=== PATIENT | female | born 1985 | race American Indian/Alaskan Native ===

== ENCOUNTER 2021-03-07 20:55 | Inpatient (IN) | payer OTHER, SELFPAY ==
[2021-03-07 21:55] LABS: Basophils # (Auto) 0.1 K/mm3 (0.0-0.1); Basophils % (Auto) 1.2 % (0.0-1.8); Eosinophils # (Auto) 0.1 K/mm3 (0.0-0.4); Eosinophils % (Auto) 1.4 % (0.0-4.3); Hematocrit 20.7 % (30.3-42.9); Lymphocytes # (Auto) 0.7 K/mm3 (1.2-5.4); Lymphocytes % (Auto) 10.5 % (13.4-35.0); Mean Corpuscular HGB Conc 34 % (30-34); Mean Corpuscular Volume 84 fl (79-97); Monocytes # (Auto) 0.6 K/mm3 (0.0-0.8); Monocytes % (Auto) 9.3 % (0.0-7.3); Platelet Count 347 K/mm3 (140-440); Red Blood Count 2.46 M/mm3 (3.65-5.03); Red Cell Distribution Width 14.2 % (13.2-15.2)
[2021-03-07 22:15] LABS: Hemolysis Index 1
[2021-03-07 22:18] LABS: Calcium 4.7 mg/dL (8.4-10.2)
[2021-03-07 22:56] LABS: BUN/Creatinine Ratio 8; Blood Urea Nitrogen 162 mg/dL (7-17)
[2021-03-07] MEDS ORDERED: SODIUM CHLORIDE 0.9% 500 ML 500 ML IV ONE (23:04)
[2021-03-07] MEDS ORDERED: SODIUM CHLORIDE 0.9% 1000 ML 1,000 ML IV ONE (23:04)
[2021-03-07 23:05] LABS: Alanine Aminotransferase 40 units/L (7-56); Albumin 3.4 g/dL (3.9-5)
[2021-03-07 23:06] LABS: Bilirubin,Direct < 0.2 mg/dL (0-0.2)
--- NOTE | 2021-03-07 23:08 | Emergency Department Report ---
HPI - General Chief Complaint: GI Bleed Time Seen by Provider: 03/07/21 22:51 - [facility] HPI: Room 20 The patient is a 35-year-old female present with a chief complaint of nausea vomiting diarrhea. Patient states for the past 2 weeks she has had nausea vomi ting and diarrhea. The patient states she is either unable to keep any food by mouth down "goes right through her and produces watery yellow diarrhea. The patient states over the past 2 weeks there were 3 episodes when she wiped she noticed blood on the tissue but never in the bowl. Patient states she has felt fatigued, has shortness of breath and dyspnea on exertion since 02/26/2021. Patient denies dysuria hematuria or fever ED Past Medical Hx - Past Medical History Previous Medical History?: Yes Additional medical history: Stage 4 kidney disease/ Anemia - Surgical History Past Surgical History?: No - Family History Family history: no significant - Social History Smoking Status: Never Smoker Substance Use Type: None (Denies illicit drug use) ED Review of Systems ROS: Stated complaint: STAGE 4 KIDNEY,ANEMIA, DIGESTIVE ISSUE Other details as noted in HPI Constitutional: malaise Eyes: denies: eye pain ENT: denies: throat pain Respiratory: shortness of breath, SOB with exertion Cardiovascular: denies: chest pain Endocrine: no symptoms reported Gastrointestinal: nausea, vomiting, diarrhea Genitourinary: denies: dysuria, hematuria Musculoskeletal: denies: back pain Neurological: denies: headache Physical Exam - Physical Exam Vital Signs: Vital Signs 03/07/21 21:45 Temperature 98.7 F Respiratory 18 Rate Blood Pressure 108/83 Physical Exam: GENERAL: The patient is well-developed well-nourished female lying on stretcher not appearing to be in acute distress. [] HEENT: Normocephalic. Atraumatic. Extraocular motions are intact. Patient has moist mucous membranes. NECK: Supple. Trachea midline CHEST/LUNGS: Clear to auscultation. There is no respiratory distress noted. HEART/CARDIOVASCULAR: Regular. There is no tachycardia. There is no gallop rub or murmur. ABDOMEN: Abdomen is soft, nontender. Patient has normal bowel sounds. There is no abdominal distention. SKIN: There is no rash. There is no edema. There is no diaphoresis. NEURO: The patient is awake, alert, and oriented. The patient is cooperative. The patient has no focal neurologic deficits. The patient has normal speech MUSCULOSKELETAL: There is no evidence of acute injury. RECTAL: Guaiac negative brown stool ED Course Vital Signs 03/07/21 21:45 Temperature 98.7 F Respiratory 18 Rate Blood Pressure 108/83 ED Medical Decision Making - Lab Data Result diagrams: 03/07/21 21:45 03/07/21 21:46 Laboratory Tests 03/07/21 03/07/21 21:45 21:46 WBC 6.5 RBC 2.46 L Hgb 7.0 L Hct 20.7 L MCV 84 MCH 29 MCHC 34 RDW 14.2 Plt Count 347 Lymph % (Auto) 10.5 L [place] % (Auto) 9.3 H Eos % (Auto) 1.4 Baso % (Auto) 1.2 Lymph # (Auto) 0.7 L [place] # (Auto) 0.6 Eos # (Auto) 0.1 Baso # (Auto) 0.1 Seg Neutrophils % 77.6 H Seg Neutrophils # 5.0 Sodium 140 Potassium 3.8 Chloride 104.8 Carbon Dioxide 9 L* Anion Gap 30 BUN 162 H Creatinine 19.8 H Estimated GFR 2 BUN/Creatinine Ratio 8 Glucose 147 H Calcium 4.7 L* Total Bilirubin 0.40 Direct Bilirubin < 0.2 Indirect Bilirubin 0.2 AST 26 ALT 40 Alkaline Phosphatase 269 H Total Protein 6.3 Albumin 3.4 L Albumin/Globulin Ratio 1.2 Corrected calcium 5.18 - EKG Data -: EKG Interpreted by Me EKG shows normal: sinus rhythm Rate: normal - EKG Data When compared to previous EKG there are: previous EKG unavailable Interpretation: other (No ischemic changes seen) - Differential Diagnosis Symptomatic anemia, GI bleeding, renal failure Critical care attestation.: If time is entered above; I have spent that time in minutes in the direct care of this critically ill patient, excluding procedure time. ED Disposition Clinical Impression: Symptomatic anemia, Uremia, Chronic kidney disease Disposition: OP ADMIT IP TO THIS HOSP Is pt being admited?: Yes Does the pt Need Aspirin: No Condition: Fair Forms: Accompanied Note Time of Disposition: 00:00 (Hospitalist paged (Dr Yeh))
[2021-03-07] MEDS ORDERED: CALCIUM GLUCONATE 2,000 MG in SODIUM CHLORIDE 0.9% 100 ML IV ONE (23:24)
--- NOTE | 2021-03-08 00:53 | History and Physical Report ---
History of Present Illness Date of examination: 03/08/21 Date of admission: 03/08/2021 Chief complaint: Nausea vomiting diarrhea Symptomatic anemia History of present illness: 35-year-old female with history of stage IV kidney disease was brought to the emergency room because of nausea vomiting diarrhea. Patient states for the past 2 weeks she has had nausea vomiting and diarrhea. The patient states she is either unable to keep any food by mouth down "goes right through her and produces watery yellow diarrhea. The patient states over the past 2 weeks there were 3 episodes when she wiped she noticed blood on the tissue but never in the bowl. Patient states she has felt fatigued, has shortness of breath and dyspnea on exertion since 02/26/2021. In the emergency room patient is found to have hemoglobin of 7.2 and hematocrit 20.7. Bicarb up 9 and calcium 4.7 Past History Past Medical History: anemia, renal failure Medications and Allergies Allergies Allergy/AdvReac Type Severity Reaction Status Date / Time No Known Allergies Allergy Unverified 03/07/21 21:42 Active Meds: Active Medications Acetaminophen (Acetaminophen 325 Mg Tab) 650 mg PO Q4H PRN PRN Reason: Pain MILD(1-3)/Fever >100.5/WARD Albuterol/Ipratropium (Ipratropium/Albuterol Sulfate 3 Ml Ampul.Neb) 1 ampul IH Q6HRT [facility] Ondansetron HCl (Ondansetron 4 Mg/2 Ml Inj) 4 mg IV Q8H PRN PRN Reason: Nausea And Vomiting Pantoprazole Sodium (Pantoprazole 40 Mg Inj) 40 mg IV BID [facility] Sodium Chloride (Sodium Chloride 0.9% 10 Ml Flush Syringe) 10 ml IV BID [facility] Sodium Chloride (Sodium Chloride 0.9% 10 Ml Flush Syringe) 10 ml IV PRN PRN PRN Reason: LINE FLUSH Review of Systems Gastrointestinal: nausea, vomiting, diarrhea, other (GI bleeding) Exam - Constitutional Vitals: Temp Pulse Resp BP Pulse Ox 98.7 F 18 108/83 03/07/21 21:45 03/07/21 21:45 03/07/21 21:45 General appearance: Present: no acute distress, well-nourished - EENT Eyes: Present: PERRL ENT: hearing intact, clear oral mucosa - Neck Neck: Present: supple, normal ROM - Respiratory Respiratory effort: normal Respiratory: bilateral: diminished - Cardiovascular Heart Sounds: Present: S1 & S2. Absent: rub, click - Extremities Extremities: pulses symmetrical, No edema Peripheral Pulses: within normal limits - Abdominal General gastrointestinal: Present: soft, non-tender, non-distended, normal bowel sounds Female genitourinary: Present: normal - Integumentary Integumentary: Present: clear, warm, dry - Musculoskeletal Musculoskeletal: gait normal, strength equal bilaterally - Psychiatric Psychiatric: appropriate mood/affect, intact judgment & insight - Neurologic Neurologic: CNII-XII intact, moves all extremities Results - Labs CBC & Chem 7: 03/07/21 21:45 03/07/21 21:46 Labs: Laboratory Last Values WBC 6.5 K/mm3 (4.5-11.0) 03/07/21 21:45 RBC 2.46 M/mm3 (3.65-5.03) L 03/07/21 21:45 Hgb 7.0 gm/dl (10.1-14.3) L 03/07/21 21:45 Hct 20.7 % (30.3-42.9) L 03/07/21 21:45 MCV 84 fl (79-97) 03/07/21 21:45 MCH 29 pg (28-32) 03/07/21 21:45 MCHC 34 % (30-34) 03/07/21 21:45 RDW 14.2 % (13.2-15.2) 03/07/21 21:45 Plt Count 347 K/mm3 (140-440) 03/07/21 21:45 Lymph % (Auto) 10.5 % (13.4-35.0) L 03/07/21 21:45 [place] % (Auto) 9.3 % (0.0-7.3) H 03/07/21 21:45 Eos % (Auto) 1.4 % (0.0-4.3) 03/07/21 21:45 Baso % (Auto) 1.2 % (0.0-1.8) 03/07/21 21:45 Lymph # (Auto) 0.7 K/mm3 (1.2-5.4) L 03/07/21 21:45 [place] # (Auto) 0.6 K/mm3 (0.0-0.8) 03/07/21 21:45 Eos # (Auto) 0.1 K/mm3 (0.0-0.4) 03/07/21 21:45 Baso # (Auto) 0.1 K/mm3 (0.0-0.1) 03/07/21 21:45 Seg Neutrophils % 77.6 % (40.0-70.0) H 03/07/21 21:45 Seg Neutrophils # 5.0 K/mm3 (1.8-7.7) 03/07/21 21:45 Sodium 140 mmol/L (137-145) 03/07/21 21:46 Potassium 3.8 mmol/L (3.6-5.0) 03/07/21 21:46 Chloride 104.8 mmol/L (98-107) 03/07/21 21:46 Carbon Dioxide 9 mmol/L (22-30) L* 03/07/21 21:46 Anion Gap 30 mmol/L 03/07/21 21:46 BUN 162 mg/dL (7-17) H 03/07/21 21:46 Creatinine 19.8 mg/dL (0.6-1.2) H 03/07/21 21:46 Estimated GFR 2 ml/min 03/07/21 21:46 BUN/Creatinine Ratio 8 % 03/07/21 21:46 Glucose 147 mg/dL (65-100) H 03/07/21 21:46 Calcium 4.7 mg/dL (8.4-10.2) L* 03/07/21 21:46 Total Bilirubin 0.40 mg/dL (0.1-1.2) 03/07/21 21:46 Direct Bilirubin < 0.2 mg/dL (0-0.2) 03/07/21 21:46 Indirect Bilirubin 0.2 mg/dL 03/07/21 21:46 AST 26 units/L (5-40) 03/07/21 21:46 ALT 40 units/L (7-56) 03/07/21 21:46 Alkaline Phosphatase 269 units/L (35-129) H 03/07/21 21:46 Total Protein 6.3 g/dL (6.3-8.2) 03/07/21 21:46 Albumin 3.4 g/dL (3.9-5) L 03/07/21 21:46 Albumin/Globulin Ratio 1.2 % 03/07/21 21:46 Blood Type B POSITIVE 03/07/21 23:22 Crossmatch See Detail 03/07/21 23:22 Assessment and Plan VTE prophylaxis?: Mechanical Plan of care discussed with patient/family: Yes - Patient Problems (1) Nausea vomiting and diarrhea Current Visit: Yes Status: Acute Plan to address problem: Admit the patient to the medical telemetry put the patient on renal diet. Protonix 40 mg IV every 12 hours. Zofran 4 mg IV every 6 hours as needed. Will consult GI for evaluation. Recheck CBC BMP in the morning (2) GI bleed Current Visit: Yes Status: Acute Plan to address problem: Protonix 40 mg IV every 12 hours. Zofran 4 mg IV every 6 hours as needed. Will consult GI for evaluation. Recheck CBC BMP in the morning (3) Chronic kidney disease Current Visit: Yes Status: Acute Plan to address problem: We will continue the home medication. Reconsult nephrology for further evaluation and treatment. Avoid nephrotoxic drug. Renally dose medication. Recheck CBC BMP in the morning (4) Symptomatic anemia Current Visit: Yes Status: Acute Plan to address problem: Patient is getting 1 unit of packed red blood cell. Protonix 40 mg IV every 12 hours. Zofran 4 mg IV every 6 hours as needed. Will consult GI for evaluation. Recheck CBC BMP in the morning (5) Hypocalcemia Current Visit: Yes Status: Acute Plan to address problem: Patient is getting 1 g of calcium gluconate. Recheck BMP in the morning (6) DVT prophylaxis Current Visit: Yes Status: Acute Plan to address problem: SCD for DVT prophylaxis. Protonix for GI prophylaxis. Patient is a full code
[2021-03-08] MEDS: IPRATROPIUM/ALBUTEROL SULFATE 3 ML AMPUL.NEB IH SCH ×4 (01:42→19:48)
[2021-03-08] MEDS ORDERED: CALCIUM GLUCONATE 1,000 MG in SODIUM CHLORIDE 0.9% 100 ML IV ONE (03:15)
[2021-03-08] MEDS: ONDANSETRON 4 MG/2 ML INJ IV PRN (03:28)
[2021-03-08] MEDS ORDERED: SODIUM CHLORIDE 0.9% 1000 ML 1,000 ML IV ONE (04:52)
[2021-03-08] MEDS: amLODIPine 5 MG TAB PO SCH (05:04)
[2021-03-08] MEDS ORDERED: FAMOTIDINE 20 MG/2 ML INJ IV SCH (10:00)
[2021-03-08] MEDS ORDERED: PANTOPRAZOLE 40 MG INJ IV SCH (10:00)
--- NOTE | 2021-03-08 10:56 | Electrocardiograph Report ---
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 Electronically Signed On 03-08-2021 10:55:54 EDT by Houston Mcadams
--- NOTE | 2021-03-08 13:40 | Event Note ---
Date: 03/08/21 Patient was seen and evaluated this morning, patient states she still having nausea but no vomiting. The nausea is getting better. She is on Zofran. Patient stated she was diagnosed with kidney disease but did not have any recent follow-up. Patient states she had history of anemia but did not get any transfusion. Patient was transfused 1 unit of blood and will get H&H after that. Patient has hypocalcemia and calcium gluconate ordered. Will check BMP. Patient was admitted earlier this morning and follow management as outlined in HPI.
--- NOTE | 2021-03-08 13:41 | Gastroenterology Consultation ---
History of Present Illness - Reason for Consult Consult date: 03/08/21 Anemia, N/V, Diarrhea Requesting physician: WILLY BARON - History of Present Illness The patient is a 35 yo female with a known hx of Stage (?IV) kidney disease, who came to the ER for N/V/diarrhea/weakness. On labs, she was noted to be in [place] with severe acidosis, anemia, and hypocalcemia. She has had watery diarrhea x 2 weeks, and non-bloody emesis for the same. She denies severe abdominal pain, but has lost her appetite, and her weight is markedly decreased. She has no gross blood in the stools, but has a hx of chronic anemia by her report, that was felt to be related to her CKD. She has stopped all her recent medications for CKD. Past History Past Medical History: anemia, renal failure Medications and Allergies Allergies Allergy/AdvReac Type Severity Reaction Status Date / Time No Known Allergies Allergy Unverified 03/07/21 21:42 Active Meds: Active Medications Acetaminophen (Acetaminophen 325 Mg Tab) 650 mg PO Q4H PRN PRN Reason: Pain MILD(1-3)/Fever >100.5/WARD Albuterol/Ipratropium (Ipratropium/Albuterol Sulfate 3 Ml Ampul.Neb) 1 ampul IH Q6HRT [facility] Last Admin: 03/08/21 01:42 Dose: Not Given Documented by: Amlodipine Besylate (Amlodipine 5 Mg Tab) 5 mg PO QDAY [facility] Last Admin: 03/08/21 05:04 Dose: 5 mg Documented by: Sodium Chloride (Nacl 0.9% 1000 Ml) 1,000 mls @ 100 mls/hr IV ONCE ONE Stop: 03/08/21 14:51 Last Admin: 03/08/21 05:05 Dose: 100 mls/hr Documented by: Calcium Gluconate 2,000 mg/ (Sodium Chloride) 120 mls @ 660 mls/hr IV ONCE ONE Stop: 03/08/21 13:49 Ondansetron HCl (Ondansetron 4 Mg/2 Ml Inj) 4 mg IV Q8H PRN PRN Reason: Nausea And Vomiting Last Admin: 03/08/21 03:28 Dose: 4 mg Documented by: Pantoprazole Sodium (Pantoprazole 40 Mg Inj) 40 mg IV BID [facility] Last Admin: 03/08/21 10:45 Dose: 40 mg Documented by: Sodium Chloride (Sodium Chloride 0.9% 10 Ml Flush Syringe) 10 ml IV BID [facility] Last Admin: 03/08/21 10:45 Dose: 10 ml Documented by: Sodium Chloride (Sodium Chloride 0.9% 10 Ml Flush Syringe) 10 ml IV PRN PRN PRN Reason: LINE FLUSH I HAVE REVIEWED/RECONCILED MEDICATIONS Review of Systems - Review of Systems All systems: negative (as noted in the HPI) Exam - Constitutional Vital Signs: Temp Pulse Resp BP Pulse Ox 98.3 F 109 H 28 H 151/102 100 03/08/21 03:43 03/08/21 06:00 03/08/21 06:00 03/08/21 06:00 03/08/21 06:00 General appearance: mild distress - EENT Eyes: PERRL, EOM intact ENT: hearing intact, clear oral mucosa - Neck Neck: supple, normal ROM - Respiratory Respiratory effort: normal Respiratory: bilateral: CTA - Cardiovascular Rhythm: regular Heart Sounds: Present: S1 & S2 Extremities: no ischemia, No edema - Gastrointestinal General gastrointestinal: Present: soft, non-tender, non-distended - Integumentary Integumentary: Present: clear, warm, dry - Neurologic Neurological: alert and oriented x3 - Labs CBC & Chem 7: 03/07/21 21:45 03/07/21 21:46 Lab Results: Laboratory Results - last 24 hr 03/07/21 03/07/21 03/07/21 21:45 21:46 23:22 WBC 6.5 RBC 2.46 L Hgb 7.0 L Hct 20.7 L MCV 84 MCH 29 MCHC 34 RDW 14.2 Plt Count 347 Lymph % (Auto) 10.5 L [place] % (Auto) 9.3 H Eos % (Auto) 1.4 Baso % (Auto) 1.2 Lymph # (Auto) 0.7 L [place] # (Auto) 0.6 Eos # (Auto) 0.1 Baso # (Auto) 0.1 Seg Neutrophils % 77.6 H Seg Neutrophils # 5.0 Sodium 140 Potassium 3.8 Chloride 104.8 Carbon Dioxide 9 L* Anion Gap 30 BUN 162 H Creatinine 19.8 H Estimated GFR 2 BUN/Creatinine Ratio 8 Glucose 147 H Calcium 4.7 L* Total Bilirubin 0.40 Direct Bilirubin < 0.2 Indirect Bilirubin 0.2 AST 26 ALT 40 Alkaline Phosphatase 269 H Total Protein 6.3 Albumin 3.4 L Albumin/Globulin Ratio 1.2 Blood Type B POSITIVE Antibody Screen Negative Crossmatch See Detail Assessment and Plan - Patient Problems (1) Nausea vomiting and diarrhea Current Visit: Yes Status: Acute Plan to address problem: - The patient will be initiated on HD later today, and we will assess if the symptoms resolve after correction of severe uremia. - No fever or elevated WBC to suggest infectious cause of diarrhea. - Agree with antiacid therapy. (2) Symptomatic anemia Current Visit: Yes Status: Acute Plan to address problem: - No significant gross bleeding, and vitals are stable. Likely related to CKD. - Will re-address after stabilization on HD.
[2021-03-08] MEDS ORDERED: CALCIUM GLUCONATE 2,000 MG in SODIUM CHLORIDE 0.9% 100 ML IV ONE (14:00)
[2021-03-08 14:17] LABS: Basophils % (Auto) 0.7 % (0.0-1.8); Eosinophils # (Auto) 0.1 K/mm3 (0.0-0.4); Eosinophils % (Auto) 0.9 % (0.0-4.3); Hematocrit 21.6 % (30.3-42.9); Hemoglobin 7.1 gm/dl (10.1-14.3); Lymphocytes # (Auto) 0.5 K/mm3 (1.2-5.4); Lymphocytes % (Auto) 8.4 % (13.4-35.0); Mean Corpuscular HGB Conc 33 % (30-34); Mean Corpuscular Volume 87 fl (79-97); Monocytes # (Auto) 0.6 K/mm3 (0.0-0.8); Monocytes % (Auto) 9.8 % (0.0-7.3); Platelet Count 297 K/mm3 (140-440); Red Blood Count 2.47 M/mm3 (3.65-5.03); Red Cell Distribution Width 14.7 % (13.2-15.2)
[2021-03-08] MEDS ORDERED: SODIUM CHLORIDE 0.9% 100 ML IV PRN (14:39)
--- NOTE | 2021-03-08 14:55 | Consultation ---
History of Present Illness - Reason for Consult acute renal failure, chronic renal failure - History of Present Illness very pleasant 35-year-old -[place] female with a past medical history of chronic kidney disease stage IV in the setting of hypertension, who recently moved from [place] about a year ago and has since not followed up with process engineering manager, who presented to the ED secondary to worsening symptoms of nausea, vomiting with labs showing likely underlying progression of her chronic kidney disease. Symptoms are concerning for uremia especially given patient's history of progressive chronic kidney disease. As mentioned before she had recently moved from [place] about a year ago but unfortunately she was not able to follow up with the process engineering manager here. She does not have a fistula in place at this time. I asked patient whether she was ever told about dialysis and patient mentioned that they had not specifically talked to her about dialysis but had mentioned that if kidney functions worsened over time that that might have been a route of action. She does not remember the specific nephrology clinic that she was seen at in [place]. Discussed with patient that based on her history and clinical presentation that I am concerned that her symptoms are like ly secondary to uremia which would necessitate initiation of hemodialysis. Past History Past Medical History: anemia, hypertension, renal failure Medications and Allergies Allergies Allergy/AdvReac Type Severity Reaction Status Date / Time No Known Allergies Allergy Unverified 03/07/21 21:42 Active Meds: Active Medications Acetaminophen (Acetaminophen 325 Mg Tab) 650 mg PO Q4H PRN PRN Reason: Pain MILD(1-3)/Fever >100.5/WARD Albuterol/Ipratropium (Ipratropium/Albuterol Sulfate 3 Ml Ampul.Neb) 1 ampul IH Q6HRT [facility] Last Admin: 03/08/21 01:42 Dose: Not Given Documented by: Amlodipine Besylate (Amlodipine 5 Mg Tab) 5 mg PO QDAY [facility] Last Admin: 03/08/21 05:04 Dose: 5 mg Documented by: Famotidine (Famotidine 20 Mg/2 Ml Inj) 10 mg IV BID [facility] Sodium Chloride (Nacl 0.9% 1000 Ml) 1,000 mls @ 100 mls/hr IV ONCE ONE Stop: 03/08/21 14:51 Last Admin: 03/08/21 05:05 Dose: 100 mls/hr Documented by: Calcium Gluconate 2,000 mg/ (Sodium Chloride) 120 mls @ 120 mls/hr IV ONCE ONE Stop: 03/08/21 14:59 Last Admin: 03/08/21 14:42 Dose: 120 mls/hr Documented by: Sodium Chloride (Nacl 0.9%) 100 mls @ 999 mls/hr IV KYREE PRN PRN Reason: Hypotension Ondansetron HCl (Ondansetron 4 Mg/2 Ml Inj) 4 mg IV Q8H PRN PRN Reason: Nausea And Vomiting Last Admin: 03/08/21 03:28 Dose: 4 mg Documented by: Sodium Chloride (Sodium Chloride 0.9% 10 Ml Flush Syringe) 10 ml IV BID [facility] Last Admin: 03/08/21 10:45 Dose: 10 ml Documented by: Sodium Chloride (Sodium Chloride 0.9% 10 Ml Flush Syringe) 10 ml IV PRN PRN PRN Reason: LINE FLUSH Review of Systems Constitutional: fatigue, weakness, malaise, poor appetite Gastrointestinal: nausea, vomiting, diarrhea Exam - Vital Signs Vital signs: Vital Signs Temp Resp BP 98.7 F 18 108/83 03/07/21 21:45 03/07/21 21:45 03/07/21 21:45 - General Appearance General appearance: appears stated age EENT: ATNC Neck: Present: neck supple, trachea midline Respiratory: Clear to Ascultation Heart: regular, S1S2 Gastrointestinal: Present: normal Integumentary: no rash, warm and dry Neurologic: no focal deficit Musculoskeletal: Present: deferred Psychiatric: cooperative Results - Lab Results 03/08/21 13:34 03/08/21 13:34 Most recent lab results Calcium 4.7 mg/dL (8.4-10.2) L* 03/07/21 21:46 Assessment and Plan - Patient Problems (1) Acute kidney injury superimposed on chronic kidney disease Current Visit: Yes Status: Acute Plan to address problem: based on history and symptomatology I am concerned that we are dealing with progressive chronic kidney disease likely now stage V. Symptoms are concerning for uremia. Given this we have discussed with patient and will start her on hemodialysis at this time. Have placed a vascular consult order for permacath placement. (2) Uremia Current Visit: Yes Status: Acute Plan to address problem: symptoms are concerning for uremia at this time given worsening renal function. Will start on hemodialysis with plan for initiation for 3 consecutive days (3) Anemia in chronic kidney disease (CKD) Current Visit: Yes Status: Chronic Plan to address problem: in the setting of chronic kidney disease. Will need to be started on BIJU therapy as an outpatient with dialysis. Transfuse to maintain hemoglobin above 7. GI consultation reviewed. No overt signs of GI bleed. (4) Hypocalcemia Current Visit: Yes Status: Acute Plan to address problem: likely in the setting of advanced chronic kidney disease. Will start patient on calcitriol 0.25 mcg daily while here in the hospital. Agree with IV calcium gluconate repletion. (5) Nausea vomiting and diarrhea Current Visit: Yes Status: Acute Plan to address problem: symptomatic management per primary team. Likely as a cause of underlying uremia given worsening renal failure. Anticipate improvement of symptoms after initia ting and stabilizing on dialysis.
[2021-03-08 14:58] LABS: Calcium 5.1 mg/dL (8.4-10.2)
--- NOTE | 2021-03-08 16:09 | Consultation ---
History of Present Illness - Reason for Consult Consult date: 03/08/21 HD access Requesting physician: YURI LO - History of Present Illness 35-year-old -[place] female with a past medical history of chronic kidney disease stage IV in the setting of hypertension, who recently moved from [place] about a year ago and has since not followed up with opal miner, who presented to the ED secondary to worsening symptoms of nausea, vomiting with labs showing likely underlying progression of her chronic kidney disease. Symptoms are concerning for uremia especially given patient's history of progressive chronic kidney disease. As mentioned before she had recently moved from [place] about a year ago but unfortunately she was not able to fo llow up with the opal miner here. She does not have a fistula in place at this time. I asked patient whether she was ever told about dialysis and patient mentioned that they had not specifically talked to her about dialysis but had mentioned that if kidney functions worsened over time that that might have been a route of action. She does not remember the specific nephrology clinic that she was seen at in [place]. Discussed with patient that based on her history and clinical presentation that I am concerned that her symptoms are likely secondary to uremia which would necessitate initiation of hemodialysis. Nephrology contacted vascular for dialysis access. Past History Past Medical History: anemia, hypertension, renal failure Medications and Allergies Allergies Allergy/AdvReac Type Severity Reaction Status Date / Time No Known Allergies Allergy Unverified 03/07/21 21:42 Active Meds: Active Medications Acetaminophen (Acetaminophen 325 Mg Tab) 650 mg PO Q4H PRN PRN Reason: Pain MILD(1-3)/Fever >100.5/WARD Albuterol/Ipratropium (Ipratropium/Albuterol Sulfate 3 Ml Ampul.Neb) 1 ampul IH Q6HRT [facility] Last Admin: 03/08/21 01:42 Dose: Not Given Documented by: Amlodipine Besylate (Amlodipine 5 Mg Tab) 5 mg PO QDAY [facility] Last Admin: 03/08/21 05:04 Dose: 5 mg Documented by: Famotidine (Famotidine 20 Mg/2 Ml Inj) 10 mg IV BID [facility] Sodium Chloride (Nacl 0.9%) 100 mls @ 999 mls/hr IV KYREE PRN PRN Reason: Hypotension Ondansetron HCl (Ondansetron 4 Mg/2 Ml Inj) 4 mg IV Q8H PRN PRN Reason: Nausea And Vomiting Last Admin: 03/08/21 03:28 Dose: 4 mg Documented by: Sodium Chloride (Sodium Chloride 0.9% 10 Ml Flush Syringe) 10 ml IV BID VALENTIN Last Admin: 03/08/21 10:45 Dose: 10 ml Documented by: Sodium Chloride (Sodium Chloride 0.9% 10 Ml Flush Syringe) 10 ml IV PRN PRN PRN Reason: LINE FLUSH Review of Systems All systems: negative (see HPI) Exam - Constitutional Vitals: Temp Pulse Resp BP Pulse Ox 98.3 F 102 H 28 H 141/93 99 03/08/21 03:43 03/08/21 15:00 03/08/21 15:00 03/08/21 15:00 03/08/21 14:00 General appearance: Present: no acute distress - EENT Eyes: Present: EOM intact ENT: hearing intact - Neck Neck: Present: supple - Respiratory Respiratory effort: normal - Abdominal General gastrointestinal: Present: soft, non-tender - Psychiatric Psychiatric: appropriate mood/affect, cooperative Results - Labs CBC & Chem 7: 03/08/21 13:34 03/08/21 13:34 Labs: Abnormal lab results 03/07/21 03/07/21 03/07/21 Range/Units 21:45 21:46 23:22 RBC 2.46 L (3.65-5.03) M/mm3 Hgb 7.0 L (10.1-14.3) gm/dl Hct 20.7 L (30.3-42.9) % Lymph % (Auto) 10.5 L (13.4-35.0) % [place] % (Auto) 9.3 H (0.0-7.3) % Lymph # (Auto) 0.7 L (1.2-5.4) K/mm3 Seg Neutrophils % 77.6 H (40.0-70.0) % Carbon Dioxide 9 L* (22-30) mmol/L BUN 162 H (7-17) mg/dL Creatinine 19.8 H (0.6-1.2) mg/dL Glucose 147 H (65-100) mg/dL Calcium 4.7 L* (8.4-10.2) mg/dL Alkaline Phosphatase 269 H (35-129) units/L Albumin 3.4 L (3.9-5) g/dL Crossmatch See Detail 03/08/21 03/08/21 Range/Units 13:34 13:34 RBC 2.47 L (3.65-5.03) M/mm3 Hgb 7.1 L (10.1-14.3) gm/dl Hct 21.6 L (30.3-42.9) % Lymph % (Auto) 8.4 L (13.4-35.0) % [place] % (Auto) 9.8 H (0.0-7.3) % Lymph # (Auto) 0.5 L (1.2-5.4) K/mm3 Seg Neutrophils % 80.2 H (40.0-70.0) % Carbon Dioxide 12 L (22-30) mmol/L BUN 156 H (7-17) mg/dL Creatinine 18.1 H (0.6-1.2) mg/dL Glucose 121 H (65-100) mg/dL Calcium 5.1 L* (8.4-10.2) mg/dL Alkaline Phosphatase (35-129) units/L Albumin (3.9-5) g/dL Crossmatch Assessment and Plan 35-year-old female with multiple medical issues including end-stage renal disease. Nephrology request hemodialysis access. Risks, benefits, and alternatives discussed with patient, patient agrees with hemodialysis access placement. Ordered vein mapping. Card provided. Follow-up in office.
[2021-03-08] MEDS ORDERED: MIDAZOLAM 2 MG/2 ML INJ ONE (16:19)
[2021-03-08] MEDS ORDERED: fentaNYL 100 MCG/2 ML INJ ONE (16:20)
[2021-03-08] MEDS ORDERED: HEPARIN/NS 5000 UNIT/500ML 500 ML IR ONE (16:20)
[2021-03-08] MEDS ORDERED: LIDOCAINE 1%/EPINEPHRINE 1:100,000 VIAL (20 ML) INFILTRATI ONE ×2 (16:21→16:56)
[2021-03-08] MEDS ORDERED: SODIUM CHLORIDE 0.9% 250ML 250 ML ONE (16:21)
[2021-03-08] MEDS ORDERED: ceFAZolin/Water 2 GM/20 ML 2 GM/20 ML SYRINGE IV ONE (17:02)
[2021-03-08] MEDS: HEPARIN 10,000 UNITS/10 ML VIAL ONE ×2 (17:09→17:10)
--- NOTE | 2021-03-08 17:30 | Operative Report ---
Operative Report Operative Report: EXAM: 1. Ultrasound-guided puncture of the right internal jugular vein 2. Fluoroscopic-guided placement of a right internal jugular tunneled cuffed hemodialysis catheter. DATE: 03/08/2021 INDICATION: End-stage renal disease requiring hemodialysis access. MEDICATIONS: Please see nursing report for full details. DEVICES: 23 cm tip to cuff 15 Fr dual lumen hemodialysis catheter [employer] SUPERVISOR: BRANDON MORENO MD CONTRAST: None PROCEDURE: The risks, benefits, and alternatives were discussed and informed consent was obtained. The patient was transported to the angiography suite in satisfactory/stable condition and was transported onto the angiography table. The patient's right internal jugular vein was assessed with ultrasound and determined to be patent prior to procedure. The patient was prepped and draped in a sterile fashion. The puncture site was anesthetized. Under sonographic guidance, the right internal jugular vein was punctured with a 21-gauge micropuncture needle and a 0.018 inch wire was advanced into the inferior vena cava. The micropuncture needle was exchanged for a transitional dilator and the wire was retracted into the right atrium to jarek intravascular distance. The wire and inner dilator were removed. 0.035 inch wire was advanced through the transitional dilator into the inferior vena cava. A suitable exit site was identified on the patient's chest inferior and lateral to the venotomy. The site was anesthetized with local anesthetic and the track was anesthetized. Dermatotomy was made. The PermCath was attached to the tunneling device and tunneled between the dermatotomy to the venotomy. Over the 0.035 inch wire, serial dilatation was performed with ultimate placement of a peel-away sheath. The catheter was advanced through the peel- away sheath after the wire was removed and positioned centrally under fluoroscopic guidance. The peel-away sheath was removed. 4-0 Vicryl suture was used to close the venotomy and Dermabond was then applied. 2-0 Ethilon suture was used to secure the catheter at the dermatotomy. The catheter was charged with heparin 1000 units/mL of space. Sterile dressing and Biopatch applied. The patient was transferred from the angiography suite back to the floor in stable condition. FINDINGS: 1. Excellent flow was obtained through the dialysis catheter with 20 mL syringes. 2. The catheter tip is in the right atrium. IMPRESSION: 1. Successful ultrasound and fluoroscopically guided placement of a right internal jugular tunneled cuffed hemodialysis catheter.
[2021-03-08] MEDS: MORPHINE 2 MG/1 ML INJ IV PRN ×2 (18:34→22:38)
[2021-03-08 21:13] LABS: Hepatitis B Surface Antigen Non-Reactive (Negative); Hepatitis C Virus Antibody Non-Reactive (NonReactive)
[2021-03-08] MEDS: FAMOTIDINE 20 MG/2 ML INJ IV SCH (22:37)
[2021-03-08] MEDS ORDERED: hydrALAZINE 20 MG/1 ML INJ IV PRN (23:04)
[2021-03-09] MEDS: IPRATROPIUM/ALBUTEROL SULFATE 3 ML AMPUL.NEB IH SCH ×4 (02:12→21:15)
[2021-03-09] MEDS: MORPHINE 2 MG/1 ML INJ IV PRN ×2 (05:47→12:28)
[2021-03-09 06:27] LABS: Basophils # (Auto) 0.1 K/mm3 (0.0-0.1); Basophils % (Auto) 0.8 % (0.0-1.8); Eosinophils % (Auto) 0.2 % (0.0-4.3); Hematocrit 22.3 % (30.3-42.9); Hemoglobin 7.5 gm/dl (10.1-14.3); Lymphocytes # (Auto) 0.5 K/mm3 (1.2-5.4); Lymphocytes % (Auto) 5.8 % (13.4-35.0); Mean Corpuscular HGB Conc 34 % (30-34); Mean Corpuscular Volume 86 fl (79-97); Monocytes # (Auto) 0.7 K/mm3 (0.0-0.8); Monocytes % (Auto) 8.6 % (0.0-7.3); Platelet Count 275 K/mm3 (140-440); Red Blood Count 2.58 M/mm3 (3.65-5.03); Red Cell Distribution Width 14.2 % (13.2-15.2)
[2021-03-09 06:40] LABS: Calcium 5.5 mg/dL (8.4-10.2)
[2021-03-09] MEDS ORDERED: CALCIUM GLUCONATE 1,000 MG in SODIUM CHLORIDE 0.9% 100 ML IV NR (08:00)
--- NOTE | 2021-03-09 09:08 | Gastroenterology Progress Note ---
Assessment and Plan - Patient Problems (1) Nausea vomiting and diarrhea Current Visit: Yes Status: Acute Plan to address problem: - The patient will be initiated on HD later today, and I suspect her severe uremia and metabolic derangements are source of N/V/D. - No fever or elevated WBC to suggest infectious cause of diarrhea. - Agree with antiacid therapy. - Will sign off; please call us back if symptoms fail to resolve after starting HD. (2) Symptomatic anemia Current Visit: Yes Status: Acute Plan to address problem: - No significant gross bleeding, and vitals are stable. Likely related to CKD. - Hct improved in last 36 hours. - No endoscopic workup at present until stabilized on HD, unless gross bleeding. - Will sign off; please call if needed. Subjective Date of service: 03/09/21 Principal diagnosis: N/V/D Interval history: The patient had a Vascath placed, and is able to tolerate some sips of liquids. No blood in the stools, but they are still loose. No fevers overnight, and her WBC remains stable. Objective - Constitutional Vitals: Temp Pulse Resp BP Pulse Ox 99.0 F 107 H 20 133/84 100 03/09/21 03:51 03/09/21 03:51 03/09/21 03:51 03/09/21 03:51 03/09/21 03:51 General appearance: no acute distress - Respiratory Respiratory effort: normal Respiratory: bilateral: CTA - Cardiovascular Rhythm: regular Heart Sounds: Present: S1 & S2 - Gastrointestinal General gastrointestinal: Present: soft, non-tender, non-distended - Labs CBC & Chem 7: 03/09/21 05:51 03/09/21 05:51 Labs: Laboratory Results - last 24 hr 03/08/21 03/08/21 03/08/21 13:34 13:34 20:21 WBC 6.6 RBC 2.47 L Hgb 7.1 L Hct 21.6 L MCV 87 MCH 29 MCHC 33 RDW 14.7 Plt Count 297 Lymph % (Auto) 8.4 L [place] % (Auto) 9.8 H Eos % (Auto) 0.9 Baso % (Auto) 0.7 Lymph # (Auto) 0.5 L [place] # (Auto) 0.6 Eos # (Auto) 0.1 Baso # (Auto) 0.0 Seg Neutrophils % 80.2 H Seg Neutrophils # 5.3 Sodium 141 Potassium 3.7 Chloride 103.7 Carbon Dioxide 12 L Anion Gap 29 BUN 156 H Creatinine 18.1 H Estimated GFR 3 BUN/Creatinine Ratio 9 Glucose 121 H Calcium 5.1 L* Hepatitis A IgM Ab Non-reactive Hep Bs Antigen Non-reactive Hep B Core IgM Ab Non-reactive Hepatitis C Antibody Non-reactive 03/09/21 03/09/21 05:51 05:51 WBC 8.6 RBC 2.58 L Hgb 7.5 L Hct 22.3 L MCV 86 MCH 29 MCHC 34 RDW 14.2 Plt Count 275 Lymph % (Auto) 5.8 L [place] % (Auto) 8.6 H Eos % (Auto) 0.2 Baso % (Auto) 0.8 Lymph # (Auto) 0.5 L [place] # (Auto) 0.7 Eos # (Auto) 0.0 Baso # (Auto) 0.1 Seg Neutrophils % 84.6 H Seg Neutrophils # 7.3 Sodium 140 Potassium 3.5 L Chloride 106.3 Carbon Dioxide 9 L* Anion Gap 28 BUN 154 H Creatinine 18.6 H Estimated GFR 3 BUN/Creatinine Ratio 8 Glucose 118 H Calcium 5.5 L* Hepatitis A IgM Ab Hep Bs Antigen Hep B Core IgM Ab Hepatitis C Antibody
--- NOTE | 2021-03-09 10:10 | Progress Note ---
Assessment and Plan - Patient Problems (1) Acute kidney injury superimposed on chronic kidney disease Current Visit: Yes Status: Acute Plan to address problem: based on history and symptomatology I am concerned that we are dealing with progressive chronic kidney disease likely now stage V. Symptoms are concerning for uremia. Given this we have discussed with patient and will start her on hemodialysis at this time. Orders have been placed for three consecutive dialysis treatments as part of the initiation process, with first treatment today. Need assistance from CM in order to have patient placed in outpatient dialysis facility. (2) Uremia Current Visit: Yes Status: Acute Plan to address problem: symptoms are concerning for uremia at this time given worsening renal function. Will start on hemodialysis with plan for initiation for 3 consecutive days (3) Anemia in chronic kidney disease (CKD) Current Visit: Yes Status: Chronic Plan to address problem: in the setting of chronic kidney disease. Will need to be started on BIJU therapy as an outpatient with dialysis. Transfuse to maintain hemoglobin above 7. GI consultation reviewed. No overt signs of GI bleed. (4) Hypocalcemia Current Visit: Yes Status: Acute Plan to address problem: likely in the setting of advanced chronic kidney disease. Will start patient on calcitriol 0.25 mcg daily while here in the hospital. Agree with IV calcium gluconate repletion. (5) Nausea vomiting and diarrhea Current Visit: Yes Status: Acute Plan to address problem: symptomatic management per primary team. Likely as a cause of underlying uremia given worsening renal failure. Anticipate improvement of symptoms after initiating and stabilizing on dialysis. Subjective Date of service: 03/09/21 Principal diagnosis: N/V/D Interval history: Initiated on dialysis, tolerating treatment. Had permcath placed yesterday. Will need assistance from in order to set up outpatient dialysis. Objective - Vital Signs Vital signs: Vital Signs - 12hr 03/08/21 03/09/21 03/09/21 22:32 02:14 02:15 Temperature Pulse Rate 140 H Pulse Rate [ 109 H Bilateral] Respiratory 20 Rate Respiratory 18 Rate [Bilateral ] Blood Pressure 157/107 O2 Sat by Pulse 95 100 Oximetry 03/09/21 03/09/21 03/09/21 03:51 09:46 10:00 Temperature 99.0 F Pulse Rate 107 H 112 H 113 H Pulse Rate [ Bilateral] Respiratory 20 Rate Respiratory Rate [Bilateral ] Blood Pressure 133/84 141/89 138/93 O2 Sat by Pulse 100 Oximetry - General Appearance General appearance: well-developed, appears stated age EENT: ATNC Neck: no JVD Respiratory: Present: Wheezes Cardiology: regular Gastrointestinal: normal Integumentary: no rash Neurologic: no focal deficit Musculoskeletal: deferred Psychiatric: cooperative - Lab 03/09/21 05:51 03/09/21 05:51 Most recent lab results Calcium 5.5 mg/dL (8.4-10.2) L* 03/09/21 05:51 - Allied health notes Allied health notes reviewed: nursing Medications & Allergies - Medications Allergies/Adverse Reactions: Allergies No Known Allergies Allergy (Unverified 03/07/21 21:42) Home Medications: Home Medications Medication Instructions Recorded Confirmed Last Taken Type No Known Home Medications [No 03/08/21 03/08/21 Unknown History Reported Home Medications] Active Medications: Generic Name Dose Route Start Last Admin Trade Name Freq PRN Reason Stop Dose Admin Acetaminophen 650 mg 03/08/21 00:43 Acetaminophen 325 Mg Tab PO Q4H PRN Pain MILD(1-3)/Fever >100.5/WARD Albuterol/Ipratropium 1 ampul 03/08/21 02:00 03/09/21 08:45 Ipratropium/Albuterol Sulfate 3 Ml Ampul.Neb IH 1 ampul Q6HRT VALENTIN Administration Amlodipine Besylate 5 mg 03/08/21 05:15 03/08/21 05:04 Amlodipine 5 Mg Tab PO 5 mg QDAY VALENTIN Administration Famotidine 10 mg 03/08/21 22:00 03/08/21 22:37 Famotidine 20 Mg/2 Ml Inj IV 10 mg BID VALENTIN Administration Hydralazine HCl 10 mg 03/08/21 23:04 03/08/21 23:24 Hydralazine 20 Mg/1 Ml Inj IV 10 mg Q6H PRN Administration Hypertension Sodium Chloride 100 mls @ 999 mls/hr 03/08/21 14:39 Nacl 0.9% IV KYREE PRN Hypotension Morphine Sulfate 2 mg 03/08/21 18:29 03/09/21 05:47 Morphine 2 Mg/1 Ml Inj IV 2 mg Q4H PRN Administration Chest Pain unrelieved by NTG Ondansetron HCl 4 mg 03/08/21 00:43 03/08/21 03:28 Ondansetron 4 Mg/2 Ml Inj IV 4 mg Q8H PRN Administration Nausea And Vomiting Sodium Chloride 10 ml 03/08/21 10:00 03/08/21 22:39 Sodium Chloride 0.9% 10 Ml Flush Syringe IV 10 ml BID VALENTIN Administration Sodium Chloride 10 ml 03/08/21 00:43 Sodium Chloride 0.9% 10 Ml Flush Syringe IV PRN PRN LINE FLUSH
[2021-03-09] MEDS: amLODIPine 5 MG TAB PO SCH (12:29)
[2021-03-09] MEDS: CALCITRIOL 0.5 MCG CAP PO SCH (12:29)
[2021-03-09] MEDS: ERGOCALCIFEROL (VIT D2) 50,000 UNIT CAP PO SCH (12:30)
[2021-03-09] MEDS: FAMOTIDINE 20 MG/2 ML INJ IV SCH ×2 (12:39→22:03)
--- NOTE | 2021-03-09 16:25 | Progress Note ---
Assessment and Plan Assessment and plan: 35-year-old female with history of stage IV kidney disease was brought to the emergency room because of nausea vomiting diarrhea. Patient states for the past 2 weeks she has had nausea vomiting and diarrhea. The patient states she is either unable to keep any food by mouth down "goes right through her and produces watery yellow diarrhea. The patient states over the past 2 weeks there were 3 episodes when she wiped she noticed blood on the tissue but never in the bowl. Patient states she has felt fatigued, has shortness of breath and dyspnea on exertion since 02/26/2021. In the emergency room patient is found to have hemoglobin of 7.2 and hematocrit 20.7. Bicarb up 9 and calcium 4.7 1) Nausea vomiting and diarrhea Current Visit: Yes Status: Acute Plan to address problem: Likely from uremia. No diarrhea. Nausea and vomiting better. GI consulted, no acute intervention recommended at present. Zofran as needed. (2) GI bleed Current Visit: Yes Status: Acute Plan to address problem: No recurrence of hematochezia. Patient denies history of hemorrhoidal bleed. GI consulted, no acute intervention recommended at present. Continue to monitor hemoglobin. (3) Chronic kidney disease/BRIDGET/ESRD initiated HD Current Visit: Yes Status: Acute Plan to address problem: Per nephrology, ESRD from progression of CKD with significant uremic symptoms, initiated hemodialysis today, 03/09. Plan is to dialyze 3 days in a row. Continue to monitor renal function and electrolytes as well as volume status. Patient does not have mild volume overload but without significant respiratory distress/hypoxia. Will consult CM for outpatient dialysis placement. (4) Symptomatic anemia Current Visit: Yes Status: Acute Plan to address problem: Patient is getting 1 unit of packed red blood cell. More likely from a CKD then from GI bleed. Will monitor hemoglobin. (5) Hypocalcemia Current Visit: Yes Status: Acute Plan to address problem: Likely from CKD patient is getting 1 g of calcium gluconate. Calcitriol started by nephrology. (6) DVT prophylaxis Current Visit: Yes Status: Acute Plan to address problem: SCD for DVT prophylaxis. Protonix for GI prophylaxis. Patient is a full code Discussed with patient and the nursing staff. History Interval history: Hemodialysis was initiated today. Patient reports nausea and vomiting better. No diarrhea or hematochezia. No dyspnea. She denies history of bleeding from hemorrhoids Hospitalist Physical - Constitutional Vitals: Temp Pulse Resp BP Pulse Ox 98.5 F 100 H 24 160/97 100 03/09/21 11:55 03/09/21 12:29 03/09/21 11:55 03/09/21 12:29 03/09/21 14:11 General appearance: Present: no acute distress - EENT Eyes: Absent: scleral icterus (Conjunctival pallor noted) ENT: clear oral mucosa - Neck Neck: Present: other (Tunneled right IJ catheter present) - Respiratory Respiratory effort: normal Respiratory: bilateral: rales (Few basilar rales) - Cardiovascular Rhythm: other (Regular tachycardia) - Extremities Extremities: No edema - Abdominal General gastrointestinal: soft, non-tender, non-distended - Psychiatric Psychiatric: other (Somewhat flat affect) - Neurologic Neurologic: no focal deficits - Allied Health Allied health notes reviewed: nursing (Hemorrhoids noted per nursing report) Results - Labs CBC & Chem 7: 03/09/21 05:51 03/09/21 05:51 Labs: Laboratory Last Values WBC 8.6 K/mm3 (4.5-11.0) 03/09/21 05:51 RBC 2.58 M/mm3 (3.65-5.03) L 03/09/21 05:51 Hgb 7.5 gm/dl (10.1-14.3) L 03/09/21 05:51 Hct 22.3 % (30.3-42.9) L 03/09/21 05:51 MCV 86 fl (79-97) 03/09/21 05:51 MCH 29 pg (28-32) 03/09/21 05:51 MCHC 34 % (30-34) 03/09/21 05:51 RDW 14.2 % (13.2-15.2) 03/09/21 05:51 Plt Count 275 K/mm3 (140-440) 03/09/21 05:51 Lymph % (Auto) 5.8 % (13.4-35.0) L 03/09/21 05:51 [place] % (Auto) 8.6 % (0.0-7.3) H 03/09/21 05:51 Eos % (Auto) 0.2 % (0.0-4.3) 03/09/21 05:51 Baso % (Auto) 0.8 % (0.0-1.8) 03/09/21 05:51 Lymph # (Auto) 0.5 K/mm3 (1.2-5.4) L 03/09/21 05:51 [place] # (Auto) 0.7 K/mm3 (0.0-0.8) 03/09/21 05:51 Eos # (Auto) 0.0 K/mm3 (0.0-0.4) 03/09/21 05:51 Baso # (Auto) 0.1 K/mm3 (0.0-0.1) 03/09/21 05:51 Seg Neutrophils % 84.6 % (40.0-70.0) H 03/09/21 05:51 Seg Neutrophils # 7.3 K/mm3 (1.8-7.7) 03/09/21 05:51 Sodium 140 mmol/L (137-145) 03/09/21 05:51 Potassium 3.5 mmol/L (3.6-5.0) L 03/09/21 05:51 Chloride 106.3 mmol/L (98-107) 03/09/21 05:51 Carbon Dioxide 9 mmol/L (22-30) L* 03/09/21 05:51 Anion Gap 28 mmol/L 03/09/21 05:51 BUN 154 mg/dL (7-17) H 03/09/21 05:51 Creatinine 18.6 mg/dL (0.6-1.2) H 03/09/21 05:51 Estimated GFR 3 ml/min 03/09/21 05:51 BUN/Creatinine Ratio 8 % 03/09/21 05:51 Glucose 118 mg/dL (65-100) H 03/09/21 05:51 Calcium 5.5 mg/dL (8.4-10.2) L* 03/09/21 05:51 Total Bilirubin 0.40 mg/dL (0.1-1.2) 03/07/21 21:46 Direct Bilirubin < 0.2 mg/dL (0-0.2) 03/07/21 21:46 Indirect Bilirubin 0.2 mg/dL 03/07/21 21:46 AST 26 units/L (5-40) 03/07/21 21:46 ALT 40 units/L (7-56) 07/12/21 21:46 Alkaline Phosphatase 269 units/L (35-129) H 03/07/21 21:46 Total Protein 6.3 g/dL (6.3-8.2) 03/07/21 21:46 Albumin 3.4 g/dL (3.9-5) L 03/07/21 21:46 Albumin/Globulin Ratio 1.2 % 03/07/21 21:46 Hepatitis A IgM Ab Non-reactive (NonReactive) 03/08/21 20:21 Hep Bs Antigen Non-reactive (Negative) 03/08/21 20:21 Hep B Core IgM Ab Non-reactive (NonReactive) 03/08/21 20:21 Hepatitis C Antibody Non-reactive (NonReactive) 03/08/21 20:21 Blood Type B POSITIVE 03/07/21 23:22 Antibody Screen Negative 03/07/21 23:22 Crossmatch See Detail 03/07/21 23:22 Zimmerman/IV: Voiding Method Toilet Active Medications - Current Medications Current Medications: Generic Name Dose Route Start Last Admin Trade Name Freq PRN Reason Stop Dose Admin Acetaminophen 650 mg 03/08/21 00:43 Acetaminophen 325 Mg Tab PO Q4H PRN Pain MILD(1-3)/Fever >100.5/WARD Albuterol/Ipratropium 1 ampul 03/09/21 22:00 Ipratropium/Albuterol Sulfate 3 Ml Ampul.Neb IH BID VALENTIN Amlodipine Besylate 5 mg 03/08/21 05:15 03/09/21 12:29 Amlodipine 5 Mg Tab PO 5 mg QDAY VALENTIN Administration Calcitriol 0.5 mcg 03/09/21 11:30 03/09/21 12:29 Calcitriol 0.5 Mcg Cap PO 0.5 mcg QDAY VALENTIN Administration Ergocalciferol 50,000 unit 03/09/21 11:30 03/09/21 12:30 Ergocalciferol (Vit D2) 50,000 Unit Cap PO 50,000 unit We@1000 VALENTIN Administration Famotidine 10 mg 03/08/21 22:00 03/09/21 12:39 Famotidine 20 Mg/2 Ml Inj IV 10 mg BID VALENTIN Administration Hydralazine HCl 10 mg 03/08/21 23:04 03/08/21 23:24 Hydralazine 20 Mg/1 Ml Inj IV 10 mg Q6H PRN Administration Hypertension Sodium Chloride 100 mls @ 999 mls/hr 03/08/21 14:39 Nacl 0.9% IV KYREE PRN Hypotension Morphine Sulfate 2 mg 03/08/21 18:29 03/09/21 12:28 Morphine 2 Mg/1 Ml Inj IV 2 mg Q4H PRN Administration Chest Pain unrelieved by NTG Ondansetron HCl 4 mg 03/08/21 00:43 03/08/21 03:28 Ondansetron 4 Mg/2 Ml Inj IV 4 mg Q8H PRN Administration Nausea And Vomiting Sodium Chloride 10 ml 03/08/21 10:00 03/09/21 12:40 Sodium Chloride 0.9% 10 Ml Flush Syringe IV 10 ml BID VALENTIN Administration Sodium Chloride 10 ml 03/08/21 00:43 Sodium Chloride 0.9% 10 Ml Flush Syringe IV PRN PRN LINE FLUSH
--- NOTE | 2021-03-09 17:43 | Vascular Lab Report ---
DOPPLER ULTRASOUND UPPER EXTREMITY VENOUS MAPPING, BILATERAL INDICATION / CLINICAL INFORMATION: vein mapping ESRD TECHNIQUE: Grayscale, color and spectral Doppler imaging of the venous system of the right and left upper extrem ities was performed. COMPARISON: None available. FINDINGS: RIGHT UPPER EXTREMITY: Subclavian Vein: Patent. Axillary Vein: Patent. Cephalic Vein (Diameter, in cm): - Upper Arm: 0.27 - Mid Arm: 0.28 - Antecubital: 0.31 - Upper Forearm: 0.27 - Mid Forearm: 0.29 - Wrist: 0.22 Basilic Vein (Diameter, in cm): - Upper Arm: 0.47 - Mid Arm: 0.48 - Antecubital: 0.37 - Upper Forearm: 0.24 - Mid Forearm: 0.29 - Wrist: 0.19 Brachial Artery PSV (Diameter, in cm): 0.67 Radial Artery (Diameter, in cm): 0.17 LEFT UPPER EXTREMITY: Subclavian Vein: Patent. Axillary Vein: Patent. Cephalic Vein (Diameter, in mm): - Upper Arm: 27 - Mid Arm: 17 - Antecubital: 37 - Upper Forearm: 25 - Mid Forearm: 26 - Wrist: 14 Basilic Vein (Diameter, in mm): - Upper Arm: 32 - Mid Arm: 27 - Antecubital: 26 - Upper Forearm: 18 - Mid Forearm: 18 - Wrist: 15 Brachial Artery PSV (Diameter, in mm): 36 Radial Artery (Diameter, in mm): 18 Additional Findings: None. IMPRESSION: 1. No sonographic evidence of deep venous thrombosis. 2. Upper extremity venous mapping as above. Signer Name: Clarence Lopez MD Signed: 03/09/2021 5:39 PM Workstation Name: [id number]
[2021-03-09] MEDS: ONDANSETRON 4 MG/2 ML INJ IV PRN (18:22)
[2021-03-10] MEDS: ONDANSETRON 4 MG/2 ML INJ IV PRN (00:37)
[2021-03-10] MEDS: IPRATROPIUM/ALBUTEROL SULFATE 3 ML AMPUL.NEB IH SCH ×2 (08:50→21:03)
[2021-03-10 10:22] LABS: Basophils # (Auto) 0.1 K/mm3 (0.0-0.1); Basophils % (Auto) 0.9 % (0.0-1.8); Eosinophils # (Auto) 0.1 K/mm3 (0.0-0.4); Eosinophils % (Auto) 1.3 % (0.0-4.3); Hematocrit 22.8 % (30.3-42.9); Hemoglobin 7.4 gm/dl (10.1-14.3); Lymphocytes # (Auto) 0.4 K/mm3 (1.2-5.4); Mean Corpuscular HGB Conc 32 % (30-34); Mean Corpuscular Volume 86 fl (79-97); Monocytes # (Auto) 0.7 K/mm3 (0.0-0.8); Monocytes % (Auto) 9.3 % (0.0-7.3); Platelet Count 289 K/mm3 (140-440); Red Blood Count 2.64 M/mm3 (3.65-5.03); Red Cell Distribution Width 14.5 % (13.2-15.2)
[2021-03-10 10:51] LABS: Albumin 3.4 g/dL (3.9-5)
[2021-03-10] MEDS: FAMOTIDINE 10 MG TAB PO SCH ×2 (13:10→21:57)
[2021-03-10 13:11] LABS: Calcium 5.7 mg/dL (8.4-10.2)
[2021-03-10] MEDS: CALCITRIOL 0.5 MCG CAP PO SCH (13:11)
[2021-03-10] MEDS: amLODIPine 5 MG TAB PO SCH (13:11)
[2021-03-10] MEDS ORDERED: CALCIUM GLUCONATE 2,000 MG in SODIUM CHLORIDE 0.9% 100 ML IV ONE (14:00)
--- NOTE | 2021-03-10 17:09 | Progress Note ---
Assessment and Plan Assessment and plan: 35-year-old female with history of stage IV kidney disease was brought to the emergency room because of nausea vomiting diarrhea. Patient states for the past 2 weeks she has had nausea vomiting and diarrhea. The patient states she is either unable to keep any food by mouth down "goes right through her and produces watery yellow diarrhea. The patient states over the past 2 weeks there were 3 episodes when she wiped she noticed blood on the tissue but never in the bowl. Patient states she has felt fatigued, has shortness of breath and dyspnea on exertion since 02/26/2021. In the emergency room patient is found to have hemoglobin of 7.2 and hematocrit 20.7. Bicarb up 9 and calcium 4.7 1) Nausea vomiting and diarrhea Current Visit: Yes Status: Acute Plan to address problem: Likely from uremia. No diarrhea. Nausea and vomiting better. GI consulted, no acute intervention recommended at present. Zofran as needed. (2) GI bleed Current Visit: Yes Status: Acute Plan to address problem: No recurrence of hematochezia. Patient denies history of hemorrhoidal bleed. GI consulted, no acute intervention recommended at present. Continue to monitor hemoglobin. (3) Chronic kidney disease/BRIDGET/ESRD initiated HD Current Visit: Yes Status: Acute Plan to address problem: Per nephrology, ESRD from progression of CKD with significant uremic symptoms, initiated hemodialysis today, 03/09. Plan is to dialyze 3 days in a row. Continue to monitor renal function and electrolytes as well as volume status. Patient does not have significant volume overload today. Creatinine and BUN are improving with dialysis. Will consult CM for outpatient dialysis placement. (4) Symptomatic anemia Current Visit: Yes Status: Acute Plan to address problem: Patient is getting 1 unit of packed red blood cell. More likely from a CKD then from GI bleed. Hemoglobin stable so far and will continue monitor. (5) Hypocalcemia Current Visit: Yes Status: Acute Plan to address problem: Likely from CKD patient is getting 1 g of calcium gluconate. Calcitriol started by nephrology. (6) DVT prophylaxis Current Visit: Yes Status: Acute Plan to address problem: SCD for DVT prophylaxis. Protonix for GI prophylaxis. Patient is a full code Discussed with patient and the nursing staff. History Interval history: Patient reports having multiple episodes of vomiting last night. However nausea much better this morning and able to eat good breakfast. Patient reports dyspnea better since dialysis started. No diarrhea or hematochezia. Hospitalist Physical - Constitutional Vitals: Temp Pulse Resp BP Pulse Ox 98.3 F 90 18 150/100 100 03/10/21 12:40 03/10/21 13:11 03/10/21 12:40 03/10/21 13:11 03/10/21 04:21 General appearance: Present: no acute distress - EENT Eyes: Present: PERRL, EOM intact ENT: clear oral mucosa - Neck Neck: Present: supple, other (Right IJ tunnel cath) - Respiratory Respiratory effort: normal Respiratory: bilateral: CTA - Cardiovascular Rhythm: regular - Extremities Extremities: No edema - Abdominal General gastrointestinal: non-tender, non-distended - Integumentary Integumentary: Absent: rash - Psychiatric Psychiatric: appropriate mood/affect - Neurologic Neurologic: moves all extremities Results - Labs CBC & Chem 7: 03/10/21 08:34 03/10/21 08:34 Labs: Laboratory Last Values WBC 7.4 K/mm3 (4.5-11.0) 03/10/21 08:34 RBC 2.64 M/mm3 (3.65-5.03) L 03/10/21 08:34 Hgb 7.4 gm/dl (10.1-14.3) L 03/10/21 08:34 Hct 22.8 % (30.3-42.9) L 03/10/21 08:34 MCV 86 fl (79-97) 03/10/21 08:34 MCH 28 pg (28-32) 03/10/21 08:34 MCHC 32 % (30-34) 03/10/21 08:34 RDW 14.5 % (13.2-15.2) 03/10/21 08:34 Plt Count 289 K/mm3 (140-440) 03/10/21 08:34 Lymph % (Auto) 6.0 % (13.4-35.0) L 03/10/21 08:34 [place] % (Auto) 9.3 % (0.0-7.3) H 03/10/21 08:34 Eos % (Auto) 1.3 % (0.0-4.3) 03/10/21 08:34 Baso % (Auto) 0.9 % (0.0-1.8) 03/10/21 08:34 Lymph # (Auto) 0.4 K/mm3 (1.2-5.4) L 03/10/21 08:34 [place] # (Auto) 0.7 K/mm3 (0.0-0.8) 03/10/21 08:34 Eos # (Auto) 0.1 K/mm3 (0.0-0.4) 03/10/21 08:34 Baso # (Auto) 0.1 K/mm3 (0.0-0.1) 03/10/21 08:34 Seg Neutrophils % 82.5 % (40.0-70.0) H 03/10/21 08:34 Seg Neutrophils # 6.1 K/mm3 (1.8-7.7) 03/10/21 08:34 Sodium 143 mmol/L (137-145) 03/10/21 08:34 Potassium 3.2 mmol/L (3.6-5.0) L 03/10/21 08:34 Chloride 100.7 mmol/L (98-107) 03/10/21 08:34 Carbon Dioxide 20 mmol/L (22-30) L D 03/10/21 08:34 Anion Gap 26 mmol/L 03/10/21 08:34 BUN 85 mg/dL (7-17) H 03/10/21 08:34 Creatinine 11.9 mg/dL (0.6-1.2) H 03/10/21 08:34 Estimated GFR 4 ml/min 03/10/21 08:34 BUN/Creatinine Ratio 7 % 03/10/21 08:34 Glucose 154 mg/dL (65-100) H 03/10/21 08:34 Calcium 5.7 mg/dL (8.4-10.2) L* 03/10/21 08:34 Total Bilirubin 0.40 mg/dL (0.1-1.2) 03/10/21 08:34 Direct Bilirubin < 0.2 mg/dL (0-0.2) 03/07/21 21:46 Indirect Bilirubin 0.2 mg/dL 03/07/21 21:46 AST 27 units/L (5-40) 03/10/21 08:34 ALT 15 units/L (7-56) 03/10/21 08:34 Alkaline Phosphatase 223 units/L (35-129) H 03/10/21 08:34 Total Protein 6.0 g/dL (6.3-8.2) L 03/10/21 08:34 Albumin 3.4 g/dL (3.9-5) L 03/10/21 08:34 Albumin/Globulin Ratio 1.3 % 03/10/21 08:34 Hepatitis A IgM Ab Non-reactive (NonReactive) 03/08/21 20:21 Hep Bs Antigen Non-reactive (Negative) 03/08/21 20:21 Hep B Core IgM Ab Non-reactive (NonReactive) 03/08/21 20:21 Hepatitis C Antibody Non-reactive (NonReactive) 03/08/21 20:21 Blood Type B POSITIVE 03/07/21 23:22 Antibody Screen Negative 03/07/21 23:22 Crossmatch See Detail 03/07/21 23:22 Zimmerman/IV: Voiding Method Bedside Commode Active Medications - Current Medications Current Medications: Generic Name Dose Route Start Last Admin Trade Name Freq PRN Reason Stop Dose Admin Acetaminophen 650 mg 03/08/21 00:43 Acetaminophen 325 Mg Tab PO Q4H PRN Pain MILD(1-3)/Fever >100.5/WARD Albuterol/Ipratropium 1 ampul 03/09/21 22:00 03/10/21 08:50 Ipratropium/Albuterol Sulfate 3 Ml Ampul.Neb IH 1 ampul BID VALENTIN Administration Amlodipine Besylate 5 mg 03/08/21 05:15 03/10/21 13:11 Amlodipine 5 Mg Tab PO 5 mg QDAY VALENTIN Administration Calcitriol 0.5 mcg 03/09/21 11:30 03/10/21 13:11 Calcitriol 0.5 Mcg Cap PO 0.5 mcg QDAY VALENTIN Administration Ergocalciferol 50,000 unit 03/09/21 11:30 03/09/21 12:30 Ergocalciferol (Vit D2) 50,000 Unit Cap PO 50,000 unit We@1000 VALENTIN Administration Famotidine 10 mg 03/10/21 12:00 03/10/21 13:10 Famotidine 10 Mg Tab PO 10 mg BID VALENTIN Administration Hydralazine HCl 10 mg 03/08/21 23:04 03/08/21 23:24 Hydralazine 20 Mg/1 Ml Inj IV 10 mg Q6H PRN Administration Hypertension Sodium Chloride 100 mls @ 999 mls/hr 03/08/21 14:39 Nacl 0.9% IV KYREE PRN Hypotension Morphine Sulfate 2 mg 03/08/21 18:29 03/09/21 12:28 Morphine 2 Mg/1 Ml Inj IV 2 mg Q4H PRN Administration Chest Pain unrelieved by NTG Ondansetron HCl 4 mg 03/08/21 00:43 03/10/21 00:37 Ondansetron 4 Mg/2 Ml Inj IV 4 mg Q8H PRN Administration Nausea And Vomiting Sodium Chloride 10 ml 03/08/21 10:00 03/10/21 13:34 Sodium Chloride 0.9% 10 Ml Flush Syringe IV 10 ml BID VALENTIN Administration Sodium Chloride 10 ml 03/08/21 00:43 Sodium Chloride 0.9% 10 Ml Flush Syringe IV PRN PRN LINE FLUSH
--- NOTE | 2021-03-10 22:32 | Progress Note ---
Assessment and Plan - Patient Problems (1) Acute kidney injury superimposed on chronic kidney disease Current Visit: Yes Status: Acute Plan to address problem: based on history and symptomatology I am concerned that we are dealing with progressive chronic kidney disease likely now stage V. Symptoms are concerning for uremia. Given this we have discussed with patient and will start her on hemodialysis at this time. Orders have been placed for three consecutive dialysis treatments as part of the initiation process, with second treatment today. Need assistance from CM in order to have patient placed in outpatient dialysis facility. (2) Uremia Current Visit: Yes Status: Acute Plan to address problem: symptoms are concerning for uremia at this time given worsening renal function. Will start on hemodialysis with plan for initiation for 3 consecutive days (3) Anemia in chronic kidney disease (CKD) Current Visit: Yes Status: Chronic Plan to address problem: in the setting of chronic kidney disease. Will need to be started on BIJU therapy as an outpatient with dialysis. Transfuse to maintain hemoglobin above 7. GI consultation reviewed. No overt signs of GI bleed. (4) Hypocalcemia Current Visit: Yes Status: Acute Plan to address problem: likely in the setting of advanced chronic kidney disease. Will start patient on calcitriol 0.25 mcg daily while here in the hospital. Agree with IV calcium gluconate repletion. (5) Nausea vomiting and diarrhea Current Visit: Yes Status: Acute Plan to address problem: symptomatic management per primary team. Likely as a cause of underlying uremia given worsening renal failure. Anticipate improvement of symptoms after initiating and stabilizing on dialysis. Subjective Date of service: 03/10/21 Principal diagnosis: N/V/D Interval history: Tolerated 2nd treatment well. Plan for third treatment tomorrow. Objective - Vital Signs Vital signs: Vital Signs - 12hr 03/10/21 03/10/21 03/10/21 10:45 11:00 11:15 Temperature Pulse Rate 100 H 98 H 96 H Pulse Rate [ Bilateral] Respiratory Rate Respiratory Rate [Bilateral ] Blood Pressure 151/96 151/98 153/103 O2 Sat by Pulse Oximetry 03/10/21 03/10/21 03/10/21 11:30 11:45 12:00 Temperature Pulse Rate 90 92 H 102 H Pulse Rate [ Bilateral] Respiratory Rate Respiratory Rate [Bilateral ] Blood Pressure 152/107 155/106 186/112 O2 Sat by Pulse Oximetry 03/10/21 03/10/21 03/10/21 12:15 12:30 12:34 Temperature Pulse Rate 96 H 100 H 98 H Pulse Rate [ Bilateral] Respiratory Rate Respiratory Rate [Bilateral ] Blood Pressure 165/114 159/114 154/108 O2 Sat by Pulse Oximetry 03/10/21 03/10/21 03/10/21 12:40 13:11 17:37 Temperature 98.3 F 99.4 F Pulse Rate 97 H 90 116 H Pulse Rate [ Bilateral] Respiratory 18 20 Rate Respiratory Rate [Bilateral ] Blood Pressure 158/101 150/100 136/95 O2 Sat by Pulse 100 Oximetry 03/10/21 03/10/21 03/10/21 21:05 21:09 21:42 Temperature 99.7 F H Pulse Rate 117 H Pulse Rate [ 111 H Bilateral] Respiratory 18 Rate Respiratory 16 Rate [Bilateral ] Blood Pressure 118/71 O2 Sat by Pulse 100 100 Oximetry - General Appearance General appearance: well-developed, appears stated age EENT: ATNC Neck: no JVD Respiratory: Present: Clear to Ascultation Cardiology: regular Gastrointestinal: normal Integumentary: no rash, warm and dry Neurologic: no focal deficit Musculoskeletal: deferred Psychiatric: mood/affect appropriate - Lab 03/10/21 08:34 03/10/21 08:34 Most recent lab results Calcium 5.7 mg/dL (8.4-10.2) L* 03/10/21 08:34 Medications & Allergies - Medications Allergies/Adverse Reactions: Allergies No Known Allergies Allergy (Unverified 03/07/21 21:42) Home Medications: Home Medications Medication Instructions Recorded Confirmed Last Taken Type No Known Home Medications [No 03/08/21 03/08/21 Unknown History Reported Home Medications] Active Medications: Generic Name Dose Route Start Last Admin Trade Name Freq PRN Reason Stop Dose Admin Acetaminophen 650 mg 03/08/21 00:43 Acetaminophen 325 Mg Tab PO Q4H PRN Pain MILD(1-3)/Fever >100.5/WARD Albuterol/Ipratropium 1 ampul 03/09/21 22:00 03/10/21 21:03 Ipratropium/Albuterol Sulfate 3 Ml Ampul.Neb IH 1 ampul BID VALENTIN Administration Amlodipine Besylate 5 mg 03/08/21 05:15 03/10/21 13:11 Amlodipine 5 Mg Tab PO 5 mg QDAY VALENTIN Administration Calcitriol 0.5 mcg 03/09/21 11:30 03/10/21 13:11 Calcitriol 0.5 Mcg Cap PO 0.5 mcg QDAY VALENTIN Administration Ergocalciferol 50,000 unit 03/09/21 11:30 03/09/21 12:30 Ergocalciferol (Vit D2) 50,000 Unit Cap PO 50,000 unit We@1000 VALENTIN Administration Famotidine 10 mg 03/10/21 12:00 03/10/21 21:57 Famotidine 10 Mg Tab PO 10 mg BID VALENTIN Administration Hydralazine HCl 10 mg 03/08/21 23:04 03/08/21 23:24 Hydralazine 20 Mg/1 Ml Inj IV 10 mg Q6H PRN Administration Hypertension Sodium Chloride 100 mls @ 999 mls/hr 03/08/21 14:39 Nacl 0.9% IV KYREE PRN Hypotension Morphine Sulfate 2 mg 03/08/21 18:29 03/09/21 12:28 Morphine 2 Mg/1 Ml Inj IV 2 mg Q4H PRN Administration Chest Pain unrelieved by NTG Ondansetron HCl 4 mg 03/08/21 00:43 03/10/21 00:37 Ondansetron 4 Mg/2 Ml Inj IV 4 mg Q8H PRN Administration Nausea And Vomiting Sodium Chloride 10 ml 03/08/21 10:00 03/10/21 21:58 Sodium Chloride 0.9% 10 Ml Flush Syringe IV 10 ml BID VALENTIN Administration Sodium Chloride 10 ml 03/08/21 00:43 Sodium Chloride 0.9% 10 Ml Flush Syringe IV PRN PRN LINE FLUSH
[2021-03-11] MEDS ORDERED: dilTIAZem 25 MG/5 ML INJ IV ONE ×2 (02:38→04:12)
[2021-03-11] MEDS ORDERED: diphenhydrAMINE 25 MG CAP PO NR (03:00)
[2021-03-11] MEDS: dilTIAZem 60 MG TAB PO SCH ×3 (06:22→22:41)
[2021-03-11 07:59] LABS: Basophils % (Auto) 0.4 % (0.0-1.8); Eosinophils # (Auto) 0.1 K/mm3 (0.0-0.4); Eosinophils % (Auto) 2.1 % (0.0-4.3); Hematocrit 21.2 % (30.3-42.9); Hemoglobin 7.1 gm/dl (10.1-14.3); Lymphocytes # (Auto) 0.5 K/mm3 (1.2-5.4); Lymphocytes % (Auto) 7.9 % (13.4-35.0); Mean Corpuscular HGB Conc 33 % (30-34); Mean Corpuscular Volume 86 fl (79-97); Monocytes # (Auto) 0.8 K/mm3 (0.0-0.8); Monocytes % (Auto) 12.8 % (0.0-7.3); Platelet Count 254 K/mm3 (140-440); Red Blood Count 2.46 M/mm3 (3.65-5.03); Red Cell Distribution Width 14.4 % (13.2-15.2)
[2021-03-11 08:23] LABS: Albumin 2.8 g/dL (3.9-5); Calcium 6.2 mg/dL (8.4-10.2)
[2021-03-11] MEDS: IPRATROPIUM/ALBUTEROL SULFATE 3 ML AMPUL.NEB IH SCH (09:07)
[2021-03-11 09:19] LABS: Albumin 3.2 g/dL (3.9-5); Calcium 6.4 mg/dL (8.4-10.2)
--- NOTE | 2021-03-11 09:19 | XRay Report ---
CHEST 1 VIEW INDICATION / CLINICAL INFORMATION: tachycardia,esrd. COMPARISON: None available. FINDINGS: SUPPORT DEVICES: There is a right IJ tunneled central venous catheter with tip terminating in the reg ion of the proximal right atrium. HEART / MEDIASTINUM: Borderline heart size. LUNGS / PLEURA: There is pulmonary vascular congestion with mild hazy bilateral opacities. No discret e consolidation. Possible trace left effusion. No pneumothorax. ADDITIONAL FINDINGS: No significant additional findings. IMPRESSION: 1. Borderline heart size and mild pulmonary vascular congestion. Signer Name: Ivory Rios MD Signed: 03/11/2021 9:15 AM Workstation Name: [id number]
[2021-03-11 09:32] LABS: Chol/HDL Ratio 3.04 %
[2021-03-11] MEDS ORDERED: METOPROLOL TARTRATE 5 MG/5 ML INJ IV ONE (10:00)
[2021-03-11] MEDS ORDERED: POTASSIUM CHLORIDE ER 20 MEQ TAB PO NR (10:00)
--- NOTE | 2021-03-11 10:32 | Electrocardiograph Report ---
[facility] Test Date: 2021-03-11 Test Time: 08:27:21 Pat Name: KIAH MURILLO Department: Room: A354 2 Gender: F [employer] L[employer] Baster: ABEL : 1985 Requested By: GISELA TRENT Order Number: [id number] Reading MD: Houston Mcadams Measurements Intervals [place] Rate: 143 P: 0 LA: 50 QRS: -12 QRSD: 73 T: 32 QT: 348 QTc: 537 Interpretive Statements Sinus tachycardia Multiple ventricular premature complexes Probable LVH with secondary repol abnrm Inferior infarct, old Prolonged QT interval Compared to ECG 03/07/2021 23:09:21 Ventricular premature complex(es) now present Sinus rhythm no longer present Atrial abnormality no longer present T-wave abnormality no longer present Myocardial infarct finding still present When compared to EKG done on ,rate is much faster,and electric alternans noted. Electronically Signed On 03-11-2021 10:32:05 EDT by Houston Mcadams
[2021-03-11] MEDS: FAMOTIDINE 10 MG TAB PO SCH ×2 (10:43→22:40)
[2021-03-11] MEDS: POTASSIUM CHLORIDE 10 MEQ 10 MEQ/100 ML BAG IV SCH ×2 (10:43→13:30)
[2021-03-11] MEDS: CALCITRIOL 0.5 MCG CAP PO SCH (10:43)
[2021-03-11] MEDS ORDERED: SODIUM CHLORIDE 0.9% 100 ML IV PRN (12:27)
--- NOTE | 2021-03-11 13:10 | Consultation ---
History of Present Illness Consult date: 03/11/21 Requesting physician: GISELA TRENT Consult reason: arrhythmia History of present illness: Patient is a 35year old female with a PMHx of CKD who presented to the ED on 03/08/2021 for complaint of worsening nausea, vomiting, and diarrhea for 2 weeks. Patient reported that she could not keep any food down without vomiting or she would have diarrhea. Patient reported feeling fatigue, SOB, and dyspnea on exertion. She also reported intermittent sharp substernal chest pain for about 6 months that has worsened but denies diaphoresis. During her hospital stay the patient had an abnormal EKG with sunus tachycardia and cardiology was consulted. 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 Patient found to be in ESRD and has been initiated on HD per nephrology. Past History Past Medical History: anemia, hypertension, renal failure Medications and Allergies Allergies Allergy/AdvReac Type Severity Reaction Status Date / Time No Known Allergies Allergy Unverified 03/07/21 21:42 Home Medications Medication Instructions Recorded Confirmed Last Taken Type No Known Home Medications [No 03/08/21 03/08/21 Unknown History Reported Home Medications] Active Meds: Active Medications Acetaminophen (Acetaminophen 325 Mg Tab) 650 mg PO Q4H PRN PRN Reason: Pain MILD(1-3)/Fever >100.5/WARD Amlodipine Besylate (Amlodipine 5 Mg Tab) 5 mg PO QDAY [facility] Last Admin: 03/10/21 13:11 Dose: 5 mg Documented by: Calcitriol (Calcitriol 0.5 Mcg Cap) 0.5 mcg PO QDAY [facility] Last Admin: 03/11/21 10:43 Dose: 0.5 mcg Documented by: Diltiazem HCl (Diltiazem 60 Mg Tab) 60 mg PO Q8HR [facility] Last Admin: 03/11/21 06:22 Dose: 60 mg Documented by: Ergocalciferol (Ergocalciferol (Vit D2) 50,000 Unit Cap) 50,000 unit PO We@1000 [facility] Last Admin: 03/09/21 12:30 Dose: 50,000 unit Documented by: Famotidine (Famotidine 10 Mg Tab) 10 mg PO BID [facility] Last Admin: 03/11/21 10:43 Dose: 10 mg Documented by: Hydralazine HCl (Hydralazine 20 Mg/1 Ml Inj) 10 mg IV Q6H PRN PRN Reason: Hypertension Last Admin: 03/08/21 23:24 Dose: 10 mg Documented by: Sodium Chloride (Nacl 0.9%) 100 mls @ 999 mls/hr IV KYREE PRN PRN Reason: Hypotension Morphine Sulfate (Morphine 2 Mg/1 Ml Inj) 2 mg IV Q4H PRN PRN Reason: Chest Pain unrelieved by NTG Last Admin: 03/09/21 12:28 Dose: 2 mg Documented by: Ondansetron HCl (Ondansetron 4 Mg/2 Ml Inj) 4 mg IV Q8H PRN PRN Reason: Nausea And Vomiting Last Admin: 03/10/21 00:37 Dose: 4 mg Documented by: Sodium Chloride (Sodium Chloride 0.9% 10 Ml Flush Syringe) 10 ml IV BID VALENTIN Last Admin: 03/11/21 10:46 Dose: 10 ml Documented by: Sodium Chloride (Sodium Chloride 0.9% 10 Ml Flush Syringe) 10 ml IV PRN PRN PRN Reason: LINE FLUSH Review of Systems All systems: negative Constitutional: fatigue, weakness, poor appetite, no fever, no chills, no sweats Ears, nose, mouth and throat: no ear pain, no ear discharge, no tinnitis, no decreased hearing Cardiovascular: chest pain Respiratory: shortness of breath, dyspnea on exertion, no cough, no cough with sputum, no excessive sputum, no hemoptysis Gastrointestinal: nausea, vomiting, diarrhea, loss of appetite Musculoskeletal: no neck stiffness, no neck pain, no shooting arm pain, no arm numbness/tingling Integumentary: no rash, no pruritis, no redness, no sores, no wounds Neurological: weakness, no head injury, no transient paralysis, no paralysis Psychiatric: no anxiety Endocrine: no cold intolerance, no heat intolerance Hematologic/Lymphatic: no easy bruising, no easy bleeding Physical Examination Last Vital Signs Temp 99.7 F H 03/11/21 11:13 Pulse 110 H 03/11/21 11:13 Resp 20 03/11/21 11:13 BP 98/74 03/11/21 11:13 Pulse Ox 100 03/11/21 11:13 General appearance: no acute distress HEENT: Positive: PERRL Neck: Positive: trachea midline Cardiac: Positive: Reg Rate and Rhythm, S1/S2 Lungs: Positive: clear to auscultation, Normal Breath Sounds Neuro: Positive: Grossly Intact Abdomen: Positive: Soft Skin: Positive: Clear Extremities: Present: normal, upper extr. pulses Results 03/11/21 07:40 03/11/21 08:32 Cardiac Enzymes 03/11/21 03/11/21 Range/Units 07:40 08:32 AST 17 19 (5-40) units/L Lipids 03/11/21 Range/Units 08:32 Triglycerides 88 (2-149) mg/dL Cholesterol 140 (50-199) mg/dL HDL Cholesterol 46 (40-59) mg/dL Cholesterol/HDL Ratio 3.04 % CBC 03/11/21 Range/Units 07:40 WBC 5.9 (4.5-11.0) K/mm3 RBC 2.46 L (3.65-5.03) M/mm3 Hgb 7.1 L (10.1-14.3) gm/dl Hct 21.2 L (30.3-42.9) % Plt Count 254 (140-440) K/mm3 Lymph # (Auto) 0.5 L (1.2-5.4) K/mm3 [place] # (Auto) 0.8 (0.0-0.8) K/mm3 Eos # (Auto) 0.1 (0.0-0.4) K/mm3 Baso # (Auto) 0.0 (0.0-0.1) K/mm3 Comprehensive Metabolic Panel 03/10/21 03/11/21 03/11/21 Range/Units 08:34 07:40 08:32 Sodium 140 140 (137-145) mmol/L Potassium 2.8 L* 2.8 L* (3.6-5.0) mmol/L Chloride 97.9 L 97.3 L (98-107) mmol/L Carbon Dioxide 20 L D 30 D 27 (22-30) mmol/L BUN 43 H 43 H (7-17) mg/dL Creatinine 11.9 H 8.5 H 8.5 H (0.6-1.2) mg/dL Glucose 100 128 H (65-100) mg/dL Calcium 5.7 L* 6.2 L 6.4 L (8.4-10.2) mg/dL AST 17 19 (5-40) units/L ALT 7 8 (7-56) units/L Alkaline Phosphatase 172 H 191 H (35-129) units/L Total Protein 5.9 L 6.6 (6.3-8.2) g/dL Albumin 2.8 L 3.2 L (3.9-5) g/dL - Imaging and Cardiology EKG: report reviewed, image reviewed EKG interpretations - Telemetry EKG Rhythm: Sinus Tachycardia - EKG Sinus rhythms and dysrhythmias: sinus tachycardia Assessment and Plan Cardiomyopathy * Echo pending read. Preliminary results of echo show EF of 35% * Initiate GDMT. Once patient is hemodynamically stable will start medications BRIDGET on CKD * Patient on HD and being followed by nephrology HTN * Optimize hypertensive regimen. Discontinue diltiazem 60 mg PO and and amlodipine 5mg PO. Plan to initiate metoprolol 12.5mg PO BID and Lisinopril 2.5mg PO QD once hemodynamically stable DVT prophylaxis * Per primary team Patient seen in conjunction with Dr. Mcadams who agrees with plan. Will continue to follow - Patient Problems (1) Acute kidney injury superimposed on chronic kidney disease Current Visit: Yes Status: Acute (2) DVT prophylaxis Current Visit: Yes Status: Acute (3) Nausea vomiting and diarrhea Current Visit: Yes Status: Acute (4) Hypokalemia Current Visit: Yes Status: Acute (5) Uremia Current Visit: Yes Status: Acute (6) Cardiomyopathy Current Visit: Yes Status: Acute
--- NOTE | 2021-03-11 13:23 | Progress Note ---
Assessment and Plan - Patient Problems (1) Acute kidney injury superimposed on chronic kidney disease Current Visit: Yes Status: Acute Plan to address problem: based on history and symptomatology I am concerned that we are dealing with progressive chronic kidney disease likely now stage V. Symptoms are concerning for uremia. Given this we have discussed with patient and will start her on hemodialysis at this time. Orders have been placed for three consecutive dialysis treatments as part of the initiation process, with third treatment today. Need assistance from CM in order to have patient placed in outpatient dialysis facility. (2) Uremia Current Visit: Yes Status: Acute Plan to address problem: symptoms are concerning for uremia at this time given worsening renal function. Will start on hemodialysis with plan for initiation for 3 consecutive days she does feel significantly better now that she has started on hemodialysis. (3) Hypokalemia Current Visit: Yes Status: Acute Plan to address problem: Will increase her potassium bath to 4K. (4) Anemia in chronic kidney disease (CKD) Current Visit: Yes Status: Chronic Plan to address problem: in the setting of chronic kidney disease. Will need to be started on BIJU therapy as an outpatient with dialysis. Transfuse to maintain hemoglobin above 7. GI consultation reviewed. No overt signs of GI bleed. (5) Hypocalcemia Current Visit: Yes Status: Acute Plan to address problem: likely in the setting of advanced chronic kidney disease. Will start patient on calcitriol 0.25 mcg daily while here in the hospital. Agree with IV calcium gluconate repletion. (6) Nausea vomiting and diarrhea Current Visit: Yes Status: Acute Plan to address problem: symptomatic management per primary team. Likely as a cause of underlying uremia given worsening renal failure. Anticipate improvement of symptoms after initiating and stabilizing on dialysis. Subjective Date of service: 03/11/21 Principal diagnosis: N/V/D Interval history: patient was seen earlier this morning. Issues with persistent tachycardia noted. echocardiogram done and pending results. Will follow up on further recommendations and cardiology. Labs also indicating evidence of hypokalemia as a major electrolyte abnormality. Patient due for her third session of hemodialysis today. Objective - Vital Signs Vital signs: Vital Signs - 12hr 03/11/21 03/11/21 03/11/21 02:32 02:34 02:51 Temperature Pulse Rate 153 H 153 H Pulse Rate [ From Monitor] Respiratory Rate Blood Pressure 140/103 O2 Sat by Pulse Oximetry 03/11/21 03/11/21 03/11/21 04:22 06:21 06:25 Temperature 99.6 F Pulse Rate 151 H 148 H Pulse Rate [ From Monitor] Respiratory 20 Rate Blood Pressure 140/96 134/93 O2 Sat by Pulse 100 Oximetry 03/11/21 03/11/21 03/11/21 06:26 08:34 10:46 Temperature Pulse Rate 148 H 147 H Pulse Rate [ 145 H From Monitor] Respiratory Rate Blood Pressure O2 Sat by Pulse Oximetry 03/11/21 11:13 Temperature 99.7 F H Pulse Rate 110 H Pulse Rate [ From Monitor] Respiratory 20 Rate Blood Pressure 98/74 O2 Sat by Pulse 100 Oximetry - General Appearance General appearance: well-developed, appears stated age EENT: ATNC Neck: no JVD Respiratory: Present: Clear to Ascultation Cardiology: tachycardia Gastrointestinal: normal Integumentary: no rash Neurologic: no focal deficit Psychiatric: cooperative - Lab 03/11/21 07:40 03/11/21 08:32 Most recent lab results Calcium 6.4 mg/dL (8.4-10.2) L 03/11/21 08:32 Magnesium 1.30 mg/dL (1.7-2.3) L 03/11/21 08:32 - Allied health notes Allied health notes reviewed: nursing Medications & Allergies - Medications Allergies/Adverse Reactions: Allergies No Known Allergies Allergy (Unverified 03/07/21 21:42) Home Medications: Home Medications Medication Instructions Recorded Confirmed Last Taken Type No Known Home Medications [No 03/08/21 03/08/21 Unknown History Reported Home Medications] Active Medications: Generic Name Dose Route Start Last Admin Trade Name Dina PRN Reason Stop Dose Admin Acetaminophen 650 mg 03/08/21 00:43 Acetaminophen 325 Mg Tab PO Q4H PRN Pain MILD(1-3)/Fever >100.5/WARD Amlodipine Besylate 5 mg 03/08/21 05:15 03/10/21 13:11 Amlodipine 5 Mg Tab PO 5 mg QDAY VALENTIN Administration Calcitriol 0.5 mcg 03/09/21 11:30 03/11/21 10:43 Calcitriol 0.5 Mcg Cap PO 0.5 mcg QDAY VALENTIN Administration Diltiazem HCl 60 mg 03/11/21 07:00 03/11/21 06:22 Diltiazem 60 Mg Tab PO 60 mg Q8HR VALENTIN Administration Ergocalciferol 50,000 unit 03/09/21 11:30 03/09/21 12:30 Ergocalciferol (Vit D2) 50,000 Unit Cap PO 50,000 unit We@1000 VALENTIN Administration Famotidine 10 mg 03/10/21 12:00 03/11/21 10:43 Famotidine 10 Mg Tab PO 10 mg BID VALENTIN Administration Hydralazine HCl 10 mg 03/08/21 23:04 03/08/21 23:24 Hydralazine 20 Mg/1 Ml Inj IV 10 mg Q6H PRN Administration Hypertension Sodium Chloride 100 mls @ 999 mls/hr 03/11/21 12:27 Nacl 0.9% IV KYREE PRN Hypotension Morphine Sulfate 2 mg 03/08/21 18:29 03/09/21 12:28 Morphine 2 Mg/1 Ml Inj IV 2 mg Q4H PRN Administration Chest Pain unrelieved by NTG Ondansetron HCl 4 mg 03/08/21 00:43 03/10/21 00:37 Ondansetron 4 Mg/2 Ml Inj IV 4 mg Q8H PRN Administration Nausea And Vomiting Sodium Chloride 10 ml 03/08/21 10:00 03/11/21 10:46 Sodium Chloride 0.9% 10 Ml Flush Syringe IV 10 ml BID VALENTIN Administration Sodium Chloride 10 ml 03/08/21 00:43 Sodium Chloride 0.9% 10 Ml Flush Syringe IV PRN PRN LINE FLUSH
[2021-03-11] MEDS: amLODIPine 5 MG TAB PO SCH (15:18)
--- NOTE | 2021-03-11 16:54 | Progress Note ---
Assessment and Plan Assessment and plan: 35-year-old female with history of stage IV kidney disease was brought to the emergency room because of nausea vomiting diarrhea. Patient states for the past 2 weeks she has had nausea vomiting and diarrhea. The patient states she is either unable to keep any food by mouth down "goes right through her and produces watery yellow diarrhea. The patient states over the past 2 weeks there were 3 episodes when she wiped she noticed blood on the tissue but never in the bowl. Patient states she has felt fatigued, has shortness of breath and dyspnea on exertion since 02/26/2021. In the emergency room patient is found to have hemoglobin of 7.2 and hematocrit 20.7. Bicarb up 9 and calcium 4.7 1) Nausea vomiting and diarrhea Current Visit: Yes Status: Acute Plan to address problem: Likely from uremia. No diarrhea. Nausea and vomiting better. GI consulted, no acute intervention recommended at present. Zofran as needed. (2) GI bleed Current Visit: Yes Status: Acute Plan to address problem: No recurrence of hematochezia. Patient denies history of hemorrhoidal bleed. GI consulted, no acute intervention recommended at present. Continue to monitor hemoglobin. (3) Chronic kidney disease/BRIDGET/ESRD initiated HD Current Visit: Yes Status: Acute Plan to address problem: Per nephrology, ESRD from progression of CKD with significant uremic symptoms, initiated hemodialysis today, 03/09. Plan is to dialyze 3 days in a row. Continue to monitor renal function and electrolytes as well as volume status. Patient does not have significant volume overload today. Creatinine and BUN are improving with dialysis. Consulted CM for outpatient dialysis placement. (4) Symptomatic anemia Current Visit: Yes Status: Acute Plan to address problem: Patient is getting 1 unit of packed red blood cell. More likely from a CKD then from GI bleed. Hemoglobin stable so far and will continue monitor. No further hematochezia since admitted. Hematochezia could be related to diarrhea, possible hemorrhoids or from frequent wiping. (5) Hypocalcemia COVID-19 positive test (U07.1, COVID-19) with Viral Sepsis (A41.89 other specified sepsis) (If respiratory failure present, add as separate assessment) current Visit: Yes Status: Acute Plan to address problem: Likely from CKD patient is getting 1 g of calcium gluconate. Calcitriol started by nephrology. (6) sinus tachycardia Likely related to neb treatments in the setting of hypokalemia, hypomagnesemia and significant but stable anemia Echocardiogram unremarkable. Troponin normal. BNP elevated in the setting of ESRD but no significant volume overload clinically. CXR showed pulmonary vascular congestion only. TSH free T4 normal. No treatment stopped. Given potassium 20 mg IV 20 mg p.o. Magnesium sulfate 4 g. Lopressor 5 mg IV x1 dose. Sinus tachycardia resolved since. Cardiology consulted and evaluating (7) DVT prophylaxis Current Visit: Yes Status: Acute Plan to address problem: SCD for DVT prophylaxis. Protonix for GI prophylaxis. Patient is a full code Discussed with patient and the nursing staff. History Interval history: Patient noted to have tachycardia at rate 150 with PVC's while taking neb treatments but asymptomatic. Potassium low at 2.8 and hemoglobin stable at 7.1. Neb treatment stopped, given metoprolol IV x1 dose and potassium chloride 20 IV and 20 p.o. Patient denies chest pains or dyspnea. Does have much improved with dialysis. Tolerating oral diet. Diarrhea resolved. No hematochezia. Hospitalist Physical - Constitutional Vitals: Temp Pulse Resp BP Pulse Ox 98.9 F 92 H 18 127/83 100 03/11/21 14:30 03/11/21 16:45 03/11/21 14:30 03/11/21 16:45 03/11/21 11:13 General appearance: Present: no acute distress, other (Facial pallor noted.) - EENT Eyes: Present: PERRL, EOM intact ENT: clear oral mucosa - Neck Neck: Present: supple, other (No JVD. Right IJ tunneled cath present) - Respiratory Respiratory effort: normal Respiratory: bilateral: CTA - Cardiovascular Rhythm: other (Sinus tachycardia without murmurs) Heart Sounds: Absent: gallop - Extremities Extremities: pulses intact, No edema - Abdominal General gastrointestinal: soft, non-tender, non-distended - Integumentary Integumentary: Absent: rash - Psychiatric Psychiatric: appropriate mood/affect - Neurologic Neurologic: no focal deficits HEART Score - HEART Score Troponin: Troponin T 0.031 ng/mL (0.00-0.029) H 03/11/21 08:32 Results - Labs CBC & Chem 7: 03/11/21 07:40 03/11/21 08:32 Labs: Laboratory Last Values WBC 5.9 K/mm3 (4.5-11.0) 03/11/21 07:40 RBC 2.46 M/mm3 (3.65-5.03) L 03/11/21 07:40 Hgb 7.1 gm/dl (10.1-14.3) L 03/11/21 07:40 Hct 21.2 % (30.3-42.9) L 03/11/21 07:40 MCV 86 fl (79-97) 03/11/21 07:40 MCH 29 pg (28-32) 03/11/21 07:40 MCHC 33 % (30-34) 03/11/21 07:40 RDW 14.4 % (13.2-15.2) 03/11/21 07:40 Plt Count 254 K/mm3 (140-440) 03/11/21 07:40 Lymph % (Auto) 7.9 % (13.4-35.0) L 03/11/21 07:40 [place] % (Auto) 12.8 % (0.0-7.3) H 03/11/21 07:40 Eos % (Auto) 2.1 % (0.0-4.3) 03/11/21 07:40 Baso % (Auto) 0.4 % (0.0-1.8) 03/11/21 07:40 Lymph # (Auto) 0.5 K/mm3 (1.2-5.4) L 03/11/21 07:40 [place] # (Auto) 0.8 K/mm3 (0.0-0.8) 03/11/21 07:40 Eos # (Auto) 0.1 K/mm3 (0.0-0.4) 03/11/21 07:40 Baso # (Auto) 0.0 K/mm3 (0.0-0.1) 03/11/21 07:40 Seg Neutrophils % 76.8 % (40.0-70.0) H 03/11/21 07:40 Seg Neutrophils # 4.6 K/mm3 (1.8-7.7) 03/11/21 07:40 Sodium 140 mmol/L (137-145) 03/11/21 08:32 Potassium 2.8 mmol/L (3.6-5.0) L* 03/11/21 08:32 Chloride 97.3 mmol/L (98-107) L 03/11/21 08:32 Carbon Dioxide 27 mmol/L (22-30) 03/11/21 08:32 Anion Gap 19 mmol/L 03/11/21 08:32 BUN 43 mg/dL (7-17) H 03/11/21 08:32 Creatinine 8.5 mg/dL (0.6-1.2) H 03/11/21 08:32 Estimated GFR 6 ml/min 03/11/21 08:32 BUN/Creatinine Ratio 5 % 03/11/21 08:32 Glucose 128 mg/dL (65-100) H 03/11/21 08:32 Calcium 6.4 mg/dL (8.4-10.2) L 03/11/21 08:32 Magnesium 1.30 mg/dL (1.7-2.3) L 03/11/21 08:32 Total Bilirubin 0.50 mg/dL (0.1-1.2) 03/11/21 08:32 Direct Bilirubin < 0.2 mg/dL (0-0.2) 03/07/21 21:46 Indirect Bilirubin 0.2 mg/dL 03/07/21 21:46 AST 19 units/L (5-40) 03/11/21 08:32 ALT 8 units/L (7-56) 03/11/21 08:32 Alkaline Phosphatase 191 units/L (35-129) H 03/11/21 08:32 Troponin T 0.031 ng/mL (0.00-0.029) H 03/11/21 08:32 NT-Pro-B Natriuret Pep 59767 pg/mL (0-450) H 03/11/21 08:32 Total Protein 6.6 g/dL (6.3-8.2) 03/11/21 08:32 Albumin 3.2 g/dL (3.9-5) L 03/11/21 08:32 Albumin/Globulin Ratio 0.9 % 03/11/21 08:32 Triglycerides 88 mg/dL (2-149) 03/11/21 08:32 Cholesterol 140 mg/dL (50-199) 03/11/21 08:32 LDL Cholesterol Direct 82 mg/dL (50-130) 03/11/21 08:32 HDL Cholesterol 46 mg/dL (40-59) 03/11/21 08:32 Cholesterol/HDL Ratio 3.04 % 03/11/21 08:32 TSH 1.920 mlU/mL (0.270-4.200) 03/11/21 08:32 Free T4 1.67 ng/dL (0.76-1.46) H 03/11/21 08:32 Coronavirus (PCR) Negative (Negative) 03/11/21 Unknown Hepatitis A IgM Ab Non-reactive (NonReactive) 03/08/21 20:21 Hep Bs Antigen Non-reactive (Negative) 03/08/21 20:21 Hep B Core IgM Ab Non-reactive (NonReactive) 03/08/21 20:21 Hepatitis C Antibody Non-reactive (NonReactive) 03/08/21 20:21 Blood Type B POSITIVE 03/07/21 23:22 Antibody Screen Negative 03/07/21 23:22 Crossmatch See Detail 03/07/21 23:22 [place]/IV: Voiding Method Bedpan Active Medications - Current Medications Current Medications: Generic Name Dose Route Start Last Admin Trade Name Freq PRN Reason Stop Dose Admin Acetaminophen 650 mg 03/08/21 00:43 Acetaminophen 325 Mg Tab PO Q4H PRN Pain MILD(1-3)/Fever >100.5/WARD Amlodipine Besylate 5 mg 03/08/21 05:15 03/11/21 15:18 Amlodipine 5 Mg Tab PO Not Given QDAY VALENTIN Calcitriol 0.5 mcg 03/09/21 11:30 03/11/21 10:43 Calcitriol 0.5 Mcg Cap PO 0.5 mcg QDAY VALENTIN Administration Diltiazem HCl 60 mg 03/11/21 07:00 03/11/21 15:19 Diltiazem 60 Mg Tab PO Not Given Q8HR VALENTIN Ergocalciferol 50,000 unit 03/09/21 11:30 03/09/21 12:30 Ergocalciferol (Vit D2) 50,000 Unit Cap PO 50,000 unit We@1000 VALENTIN Administration Famotidine 10 mg 03/10/21 12:00 03/11/21 10:43 Famotidine 10 Mg Tab PO 10 mg BID VALENTIN Administration Hydralazine HCl 10 mg 03/08/21 23:04 03/08/21 23:24 Hydralazine 20 Mg/1 Ml Inj IV 10 mg Q6H PRN Administration Hypertension Sodium Chloride 100 mls @ 999 mls/hr 03/11/21 12:27 Nacl 0.9% IV KYREE PRN Hypotension Morphine Sulfate 2 mg 03/08/21 18:29 03/09/21 12:28 Morphine 2 Mg/1 Ml Inj IV 2 mg Q4H PRN Administration Chest Pain unrelieved by NTG Ondansetron HCl 4 mg 03/08/21 00:43 03/10/21 00:37 Ondansetron 4 Mg/2 Ml Inj IV 4 mg Q8H PRN Administration Nausea And Vomiting Sodium Chloride 10 ml 03/08/21 10:00 03/11/21 10:46 Sodium Chloride 0.9% 10 Ml Flush Syringe IV 10 ml BID VALENTIN Administration Sodium Chloride 10 ml 03/08/21 00:43 Sodium Chloride 0.9% 10 Ml Flush Syringe IV PRN PRN LINE FLUSH
[2021-03-11] MEDS: ACETAMINOPHEN 325 MG TAB PO PRN (22:40)
[2021-03-12] MEDS ORDERED: MAGNESIUM SULFATE 40GM/1000ML 40 GM/1,000 ML BAG IV SCH (05:00)
[2021-03-12] MEDS: dilTIAZem 60 MG TAB PO SCH (05:37)
[2021-03-12] MEDS ORDERED: MAGNESIUM SULFATE 2 GM/50 ML BAG IV ONE (06:00)
[2021-03-12 06:35] LABS: Basophils % (Auto) 0.5 % (0.0-1.8); Eosinophils # (Auto) 0.1 K/mm3 (0.0-0.4); Eosinophils % (Auto) 2.1 % (0.0-4.3); Hematocrit 22.7 % (30.3-42.9); Hemoglobin 7.4 gm/dl (10.1-14.3); Lymphocytes # (Auto) 0.8 K/mm3 (1.2-5.4); Mean Corpuscular HGB Conc 33 % (30-34); Mean Corpuscular Volume 88 fl (79-97); Monocytes # (Auto) 0.6 K/mm3 (0.0-0.8); Platelet Count 247 K/mm3 (140-440); Red Blood Count 2.59 M/mm3 (3.65-5.03); Red Cell Distribution Width 14.4 % (13.2-15.2)
[2021-03-12 07:02] LABS: Albumin 3.3 g/dL (3.9-5); Calcium 6.6 mg/dL (8.4-10.2)
[2021-03-12] MEDS: METOPROLOL TARTRATE 25 MG TAB PO SCH ×2 (09:12→22:37)
[2021-03-12] MEDS: CALCITRIOL 0.5 MCG CAP PO SCH (09:12)
[2021-03-12] MEDS: FAMOTIDINE 10 MG TAB PO SCH ×2 (09:12→22:37)
[2021-03-12] MEDS ORDERED: LISINOPRIL 5 MG TAB PO SCH (10:00)
[2021-03-12] MEDS ORDERED: POTASSIUM CHLORIDE ER 20 MEQ TAB PO NR (10:00)
--- NOTE | 2021-03-12 12:59 | Progress Note ---
Assessment and Plan Severe MR * Echo 03/11/2021- EF is 50 to 55%. Mild to moderate left ventricular hypertrophy. Severe mitral regurgitation, moderate tricuspid regurgitation, mild pulmonary hypertension RVSP is 40 to 45 mmHg, and trace pericardial effusion * Plan for outpatient referral valvulapathy BRIDGET on CKD * Patient on HD and being followed by nephrology HTN * Optimize hypertensive regimen. Discontinued diltiazem 60 mg PO and and amlodipine 5mg PO. * Started patient on metoprolol 12.5mg PO BID and Lisinopril 2.5mg PO QD once DVT prophylaxis * Per primary team signed by Nicolas Rodarte NP Patient seen in conjunction with Dr. Canales who agrees with plan. Will continue to follow - Patient Problems (1) Acute kidney injury superimposed on chronic kidney disease Current Visit: Yes Status: Acute (2) DVT prophylaxis Current Visit: Yes Status: Acute (3) Nausea vomiting and diarrhea Current Visit: Yes Status: Acute (4) Hypokalemia Current Visit: Yes Status: Acute (5) Uremia Current Visit: Yes Status: Acute Subjective Date of service: 03/12/21 Principal diagnosis: N/V/D Interval history: Patient sitting in bed with no cardiac complaints Sinus tachycardia 102 with no events on tele Objective Last Vital Signs Temp 100.0 F H 03/12/21 11:24 Pulse 99 H 03/12/21 11:24 Resp 20 03/12/21 11:24 BP 86/52 03/12/21 11:24 Pulse Ox 98 03/12/21 11:24 - Physical Examination General: No Apparent Distress HEENT: Positive: PERRL Neck: Positive: trachea midline Cardiac: Positive: Regular Rhythm, Tachycardia Lungs: Positive: Normal Breath Sounds Neuro: Positive: Grossly Intact Abdomen: Positive: Soft Skin: Positive: Clear Extremities: Present: normal, upper extr. pulses - Labs and Meds Cardiac Enzymes 03/12/21 Range/Units 05:22 AST 23 (5-40) units/L CBC 03/12/21 Range/Units 05:22 WBC 6.5 (4.5-11.0) K/mm3 RBC 2.59 L (3.65-5.03) M/mm3 Hgb 7.4 L (10.1-14.3) gm/dl Hct 22.7 L (30.3-42.9) % Plt Count 247 (140-440) K/mm3 Lymph # (Auto) 0.8 L (1.2-5.4) K/mm3 [place] # (Auto) 0.6 (0.0-0.8) K/mm3 Eos # (Auto) 0.1 (0.0-0.4) K/mm3 Baso # (Auto) 0.0 (0.0-0.1) K/mm3 Comprehensive Metabolic Panel 03/12/21 Range/Units 05:22 Sodium 138 (137-145) mmol/L Potassium 3.1 L (3.6-5.0) mmol/L Chloride 95.0 L (98-107) mmol/L Carbon Dioxide 29 (22-30) mmol/L BUN 23 H (7-17) mg/dL Creatinine 5.7 H (0.6-1.2) mg/dL Glucose 101 H (65-100) mg/dL Calcium 6.6 L (8.4-10.2) mg/dL AST 23 (5-40) units/L ALT 8 (7-56) units/L Alkaline Phosphatase 212 H (35-129) units/L Total Protein 6.7 (6.3-8.2) g/dL Albumin 3.3 L (3.9-5) g/dL - Imaging and Cardiology EKG: report reviewed, image reviewed - Telemetry EKG Rhythm: Sinus Tachycardia - EKG Sinus rhythms and dysrhythmias: sinus tachycardia - Allied health notes Allied health notes reviewed: nursing
[2021-03-12] MEDS: POTASSIUM CHLORIDE 10 MEQ 10 MEQ/100 ML BAG IV SCH ×2 (13:41→16:58)
--- NOTE | 2021-03-12 14:51 | Progress Note ---
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 I suspect the former. Patient tolerated dialysis treatments x3. Arrangements for outpatient dialysis ongoing. 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 We will follow-up with dialysis clinic next week. (2) Uremia Current Visit: Yes Status: Acute Plan to address problem: Uremic symptoms resolved with dialysis (3) Hypocalcemia Current Visit: Yes Status: Acute Plan to address problem: Continue calcium supplements. Check serum intact PTH and start calcitriol if high (4) Hypokalemia Current Visit: Yes Status: Acute Plan to address problem: Supplement potassium and follow-up level (5) Nausea vomiting and diarrhea Current Visit: Yes Status: Acute Plan to address problem: Symptoms resolved (6) Anemia in chronic kidney disease (CKD) Current Visit: Yes Status: Chronic Plan to address problem: Give erythropoietin on dialysis Subjective Date of service: 03/12/21 Principal diagnosis: N/V/D Interval history: Patient seen lying in bed. She has no complaints. She feels better. No nausea or vomiting. Diarrhea has resolved. No shortness of breath Objective - Exam Narrative Exam: Young -[place] Citizen female lying in bed in no acute distress HEENT: NCAT, pink oral mucous membrane Neck: Supple, no venous distention CVS: S1S2 RRR with no murmur, rub or gallop Chest: Clear to auscultation Abdomen: Protuberant, soft, nontender, no organomegaly, bowel sounds are present Extremities: No edema Neuro: Awake, alert no focal deficits - Vital Signs Vital signs: Vital Signs - 12hr 03/12/21 03/12/21 05:35 11:24 Temperature 100.0 F H Pulse Rate 99 H Respiratory 20 Rate Blood Pressure 118/84 86/52 O2 Sat by Pulse 98 Oximetry - Lab 03/12/21 05:22 03/12/21 05:22 Most recent lab results Calcium 6.6 mg/dL (8.4-10.2) L 03/12/21 05:22 Magnesium 1.30 mg/dL (1.7-2.3) L 03/11/21 08:32 Medications & Allergies - Medications Allergies/Adverse Reactions: Allergies No Known Allergies Allergy (Unverified 03/07/21 21:42) Home Medications: Home Medications Medication Instructions Recorded Confirmed Last Taken Type No Known Home Medications [No 03/08/21 03/08/21 Unknown History Reported Home Medications] Active Medications: Generic Name Dose Route Start Last Admin Trade Name Freq PRN Reason Stop Dose Admin Acetaminophen 650 mg 03/08/21 00:43 03/11/21 22:40 Acetaminophen 325 Mg Tab PO 650 mg Q4H PRN Administration Pain MILD(1-3)/Fever >100.5/WARD Calcitriol 0.5 mcg 03/09/21 11:30 03/12/21 09:12 Calcitriol 0.5 Mcg Cap PO 0.5 mcg QDAY VALENTIN Administration Ergocalciferol 50,000 unit 03/09/21 11:30 03/09/21 12:30 Ergocalciferol (Vit D2) 50,000 Unit Cap PO 50,000 unit We@1000 VALENTIN Administration Famotidine 10 mg 03/10/21 12:00 03/12/21 09:12 Famotidine 10 Mg Tab PO 10 mg BID VALENTIN Administration Hydralazine HCl 10 mg 03/08/21 23:04 03/08/21 23:24 Hydralazine 20 Mg/1 Ml Inj IV 10 mg Q6H PRN Administration Hypertension Sodium Chloride 100 mls @ 999 mls/hr 03/11/21 12:27 Nacl 0.9% IV KYREE PRN Hypotension Metoprolol Tartrate 12.5 mg 03/12/21 10:00 03/12/21 09:12 Metoprolol Tartrate 25 Mg Tab PO 12.5 mg BID VALENTIN Administration Morphine Sulfate 2 mg 03/08/21 18:29 03/09/21 12:28 Morphine 2 Mg/1 Ml Inj IV 2 mg Q4H PRN Administration Chest Pain unrelieved by NTG Ondansetron HCl 4 mg 03/08/21 00:43 03/10/21 00:37 Ondansetron 4 Mg/2 Ml Inj IV 4 mg Q8H PRN Administration Nausea And Vomiting Sodium Chloride 10 ml 03/08/21 10:00 03/12/21 09:13 Sodium Chloride 0.9% 10 Ml Flush Syringe IV 10 ml BID VALENTIN Administration Sodium Chloride 10 ml 03/08/21 00:43 Sodium Chloride 0.9% 10 Ml Flush Syringe IV PRN PRN LINE FLUSH
[2021-03-12] MEDS ORDERED: POTASSIUM CHLORIDE ER 20 MEQ TAB PO ONE (14:59)
[2021-03-12] MEDS ORDERED: ALBUTEROL 2.5 MG/3 ML NEBU IH PRN (15:07)
[2021-03-12] MEDS: MORPHINE 2 MG/1 ML INJ IV PRN (16:57)
--- NOTE | 2021-03-12 17:37 | Progress Note ---
Assessment and Plan Assessment and plan: 35-year-old female with history of stage IV kidney disease was brought to the emergency room because of nausea vomiting diarrhea. Patient states for the past 2 weeks she has had nausea vomiting and diarrhea. The patient states she is either unable to keep any food by mouth down "goes right through her and produces watery yellow diarrhea. The patient states over the past 2 weeks there were 3 episodes when she wiped she noticed blood on the tissue but never in the bowl. Patient states she has felt fatigued, has shortness of breath and dyspnea on exertion since 02/26/2021. In the emergency room patient is found to have hemoglobin of 7.2 and hematocrit 20.7. Bicarb up 9 and calcium 4.7 1) Nausea vomiting and diarrhea Current Visit: Yes Status: Acute Plan to address problem: Likely from uremia. No diarrhea. Nausea and vomiting progressive improved and resolved with improvement of uremia.. GI consulted, no acute intervention recommended at present. Zofran as needed. (2) GI bleed Current Visit: Yes Status: Acute Plan to address problem: No recurrence of hematochezia. Patient denies history of hemorrhoidal bleed. GI consulted, no acute intervention recommended at present. Continue to monitor hemoglobin. (3) Chronic kidney disease/BRIDGET/ESRD initiated HD Current Visit: Yes Status: Acute Plan to address problem: Per nephrology, ESRD from progression of CKD with significant uremic symptoms, initiated hemodialysis 03/09. Received dialysis daily x3. Creatinine and BUN improving progressively. Continue to monitor renal function and electrolytes as well as volume status. Patient does not have significant volume overload today. Consulted CM for outpatient dialysis placement. (4) Symptomatic anemia Current Visit: Yes Status: Acute Plan to address problem: Patient is getting 1 unit of packed red blood cell. More likely from a CKD then from GI bleed. Hemoglobin stable so far and will continue monitor. No further hematochezia since admitted. Hematochezia could be related to diarrhea, possible hemorrhoids or from frequent wiping. Hemoglobin stable since. (5) hypocalcemia COVID-19 positive test (U07.1, COVID-19) with Viral Sepsis (A41.89 other specified sepsis) (If respiratory failure present, add as separate assessment) current Visit: Yes Status: Acute Plan to address problem: Likely from CKD patient is getting 1 g of calcium gluconate. Calcitriol started by nephrology. (6) sinus tachycardia, severe mitral regurgitation, moderate pulmonary hypertension Tachycardia could be influenced by neb treatments in the setting of hypokalemia, hypomagnesemia and significant but stable anemia Echocardiogram normal LV size, EF 50 to 50%, mild to moderate LVH, severe mitral regurgitation, normal RV size/function, moderate pulmonary hypertension 40 to 45 mm, moderate tricuspid regurgitation. Troponin normal. BNP elevated in the setting of ESRD but no significant volume overload clinically. CXR showed pulmonary vascular congestion only. TSH free T4 normal. Neb treatment stopped. Sinus tachycardia is improving, 90-1 10 today, cardiology is following, placed on metoprolol. Per cardiology, may need mitral valve repair/replacement pending further ass essment. (7) hypokalemia and hypomagnesemia Replenishing aggressively and monitoring (8) low-grade fever 100.9 without leukocytosis, not septic clinically, blood cultured, defer antibiotic therapy for now and monitor closely. DVT prophylaxis SCDs Discussed the patient in detail. History Interval history: Patient has a fever of 100.9 which is new. No cough, dyspnea dysuria. Right IJ apparently functioning okay and patient has some soreness ordered. WBC normal. Blood cultures obtained, closely monitoring but antibiotic therapy deferred for now. Potassium 3.1 today and ordered KCl 20 mEq IV and 40 p.o. Also received magnesium. Tachycardia better 90-110 now. Neb treatments stopped yesterday. Cardiology following and placed on metoprolol. Nausea, vomiting and diarrhea all resolved. Creatinine improving and edema resolving. Tolerated diet well. Does not really have complaints. Hospitalist Physical - Constitutional Vitals: Temp Pulse Resp BP Pulse Ox 100.0 F H 99 H 20 86/52 100 03/12/21 11:24 03/12/21 11:24 03/12/21 11:24 03/12/21 11:03/12/21 14:11 General appearance: Present: no acute distress, other (Facial pallor noted.) - EENT Eyes: Present: PERRL. Absent: scleral icterus ENT: clear oral mucosa - Neck Neck: Present: supple, masses or JVD, other (Right IJ tunneled catheter in place, no erythema, swelling or discharge.) - Respiratory Respiratory effort: normal Respiratory: bilateral: CTA - Cardiovascular Rhythm: regular - Extremities Extremities: No edema - Abdominal General gastrointestinal: soft, non-tender, non-distended - Integumentary Integumentary: Absent: rash - Psychiatric Psychiatric: appropriate mood/affect - Neurologic Neurologic: no focal deficits HEART Score - HEART Score Troponin: Troponin T 0.031 ng/mL (0.00-0.029) H 03/11/21 08:32 Results - Labs CBC & Chem 7: 03/12/21 05:22 03/12/21 17:48 Labs: Laboratory Last Values WBC 6.5 K/mm3 (4.5-11.0) 03/12/21 05:22 RBC 2.59 M/mm3 (3.65-5.03) L 03/12/21 05:22 Hgb 7.4 gm/dl (10.1-14.3) L 03/12/21 05:22 Hct 22.7 % (30.3-42.9) L 03/12/21 05:22 MCV 88 fl (79-97) 03/12/21 05:22 MCH 29 pg (28-32) 03/12/21 05:22 MCHC 33 % (30-34) 03/12/21 05:22 RDW 14.4 % (13.2-15.2) 03/12/21 05:22 Plt Count 247 K/mm3 (140-440) 03/12/21 05:22 Lymph % (Auto) 12.0 % (13.4-35.0) L 03/12/21 05:22 [place] % (Auto) 9.0 % (0.0-7.3) H 03/12/21 05:22 Eos % (Auto) 2.1 % (0.0-4.3) 03/12/21 05:22 Baso % (Auto) 0.5 % (0.0-1.8) 03/12/21 05:22 Lymph # (Auto) 0.8 K/mm3 (1.2-5.4) L 03/12/21 05:22 [place] # (Auto) 0.6 K/mm3 (0.0-0.8) 03/12/21 05:22 Eos # (Auto) 0.1 K/mm3 (0.0-0.4) 03/12/21 05:22 Baso # (Auto) 0.0 K/mm3 (0.0-0.1) 03/12/21 05:22 Seg Neutrophils % 76.4 % (40.0-70.0) H 03/12/21 05:22 Seg Neutrophils # 5.0 K/mm3 (1.8-7.7) 03/12/21 05:22 Sodium 138 mmol/L (137-145) 03/12/21 05:22 Potassium 3.1 mmol/L (3.6-5.0) L 03/12/21 05:22 Chloride 95.0 mmol/L (98-107) L 03/12/21 05:22 Carbon Dioxide 29 mmol/L (22-30) 03/12/21 05:22 Anion Gap 17 mmol/L 03/12/21 05:22 BUN 23 mg/dL (7-17) H 03/12/21 05:22 Creatinine 5.7 mg/dL (0.6-1.2) H 03/12/21 05:22 Estimated GFR 10 ml/min 03/12/21 05:22 BUN/Creatinine Ratio 4 % 03/12/21 05:22 Glucose 101 mg/dL (65-100) H 03/12/21 05:22 Calcium 6.6 mg/dL (8.4-10.2) L 03/12/21 05:22 Magnesium 1.30 mg/dL (1.7-2.3) L 03/11/21 08:32 Total Bilirubin 0.40 mg/dL (0.1-1.2) 03/12/21 05:22 Direct Bilirubin < 0.2 mg/dL (0-0.2) 03/07/21 21:46 Indirect Bilirubin 0.2 mg/dL 03/07/21 21:46 AST 23 units/L (5-40) 03/12/21 05:22 ALT 8 units/L (7-56) 03/12/21 05:22 Alkaline Phosphatase 212 units/L (35-129) H 03/12/21 05:22 Troponin T 0.031 ng/mL (0.00-0.029) H 03/11/21 08:32 NT-Pro-B Natriuret Pep 50154 pg/mL (0-450) H 03/11/21 08:32 Total Protein 6.7 g/dL (6.3-8.2) 03/12/21 05:22 Albumin 3.3 g/dL (3.9-5) L 03/12/21 05:22 Albumin/Globulin Ratio 1.0 % 03/12/21 05:22 Triglycerides 88 mg/dL (2-149) 03/11/21 08:32 Cholesterol 140 mg/dL (50-199) 03/11/21 08:32 LDL Cholesterol Direct 82 mg/dL (50-130) 03/11/21 08:32 HDL Cholesterol 46 mg/dL (40-59) 03/11/21 08:32 Cholesterol/HDL Ratio 3.04 % 03/11/21 08:32 TSH 1.920 mlU/mL (0.270-4.200) 03/11/21 08:32 Free T4 1.67 ng/dL (0.76-1.46) H 03/11/21 08:32 Coronavirus (PCR) Negative (Negative) 03/11/21 Unknown Hepatitis A IgM Ab Non-reactive (NonReactive) 03/08/21 20:21 Hep Bs Antigen Non-reactive (Negative) 03/08/21 20:21 Hep B Core IgM Ab Non-reactive (NonReactive) 03/08/21 20:21 Hepatitis C Antibody Non-reactive (NonReactive) 03/08/21 20:21 Blood Type B POSITIVE 03/07/21 23:22 Antibody Screen Negative 03/07/21 23:22 Crossmatch See Detail 03/07/21 23:22 Microbiology: Microbiology 03/12/21 06:19 Peripheral/Venous Blood Culture - Preliminary Culture in Progress 03/12/21 05:21 Peripheral/Venous Blood Culture - Preliminary Culture in Progress Zimmerman/IV: Voiding Method Toilet Active Medications - Current Medications Current Medications: Generic Name Dose Route Start Last Admin Trade Name Freq PRN Reason Stop Dose Admin Acetaminophen 650 mg 03/08/21 00:43 03/11/21 22:40 Acetaminophen 325 Mg Tab PO 650 mg Q4H PRN Administration Pain MILD(1-3)/Fever >100.5/WARD Albuterol 2.5 mg 03/12/21 15:07 Albuterol 2.5 Mg/3 Ml Nebu IH Q4HRT PRN Shortness Of Breath Calcitriol 0.5 mcg 03/09/21 11:30 03/12/21 09:12 Calcitriol 0.5 Mcg Cap PO 0.5 mcg QDAY VALENTIN Administration Calcium Carbonate/Glycine 1,250 mg 03/13/21 10:00 Calcium Carbonate 1250 Mg Tab PO QDAY VALENTIN Ergocalciferol 50,000 unit 03/09/21 11:30 03/09/21 12:30 Ergocalciferol (Vit D2) 50,000 Unit Cap PO 50,000 unit We@1000 VALENTIN Administration Famotidine 10 mg 03/10/21 12:00 03/12/21 09:12 Famotidine 10 Mg Tab PO 10 mg BID VALENTIN Administration Hydralazine HCl 10 mg 03/08/21 23:04 03/08/21 23:24 Hydralazine 20 Mg/1 Ml Inj IV 10 mg Q6H PRN Administration Hypertension Sodium Chloride 100 mls @ 999 mls/hr 03/11/21 12:27 Nacl 0.9% IV KYREE PRN Hypotension Metoprolol Tartrate 12.5 mg 03/12/21 10:00 03/12/21 09:12 Metoprolol Tartrate 25 Mg Tab PO 12.5 mg BID VALENTIN Administration Morphine Sulfate 2 mg 03/08/21 18:29 03/12/21 16:57 Morphine 2 Mg/1 Ml Inj IV 2 mg Q4H PRN Administration Chest Pain unrelieved by NTG Ondansetron HCl 4 mg 03/08/21 00:43 03/10/21 00:37 Ondansetron 4 Mg/2 Ml Inj IV 4 mg Q8H PRN Administration Nausea And Vomiting Sodium Chloride 10 ml 03/08/21 10:00 03/12/21 09:13 Sodium Chloride 0.9% 10 Ml Flush Syringe IV 10 ml BID VALENTIN Administration Sodium Chloride 10 ml 03/08/21 00:43 Sodium Chloride 0.9% 10 Ml Flush Syringe IV PRN PRN LINE FLUSH
[2021-03-12] MEDS ORDERED: diphenhydrAMINE 25 MG CAP PO ONE (21:17)
[2021-03-13 06:18] LABS: Basophils % (Auto) 0.8 % (0.0-1.8); Eosinophils # (Auto) 0.1 K/mm3 (0.0-0.4); Eosinophils % (Auto) 2.6 % (0.0-4.3); Hemoglobin 6.3 gm/dl (10.1-14.3); Lymphocytes # (Auto) 0.9 K/mm3 (1.2-5.4); Lymphocytes % (Auto) 16.3 % (13.4-35.0); Mean Corpuscular HGB Conc 32 % (30-34); Mean Corpuscular Volume 88 fl (79-97); Monocytes # (Auto) 0.8 K/mm3 (0.0-0.8); Platelet Count 229 K/mm3 (140-440); Red Blood Count 2.24 M/mm3 (3.65-5.03); Red Cell Distribution Width 13.9 % (13.2-15.2)
[2021-03-13 06:34] LABS: Hematocrit 19.7 % (30.3-42.9)
[2021-03-13 06:41] LABS: Albumin 2.8 g/dL (3.9-5)
[2021-03-13] MEDS ORDERED: SODIUM CHLORIDE 0.9% 500 ML 500 ML IV ONE ×3 (06:44→13:49)
[2021-03-13] MEDS ORDERED: POTASSIUM CHLORIDE ER 20 MEQ TAB PO ONE (08:34)
[2021-03-13] MEDS: CALCIUM CARBONATE 1250 MG TAB PO SCH (09:27)
[2021-03-13] MEDS: FAMOTIDINE 10 MG TAB PO SCH ×2 (09:27→22:13)
[2021-03-13] MEDS: CALCITRIOL 0.5 MCG CAP PO SCH (09:27)
[2021-03-13] MEDS: METOPROLOL TARTRATE 25 MG TAB PO SCH ×2 (09:27→22:13)
--- NOTE | 2021-03-13 12:23 | Progress Note ---
Assessment and Plan Sinus Tachycardia * In the setting of sever anemia continue metoprolol as BP permits * D-dimer noted to be elevated. Consider confirmatory testing for PE vs DVT Severe MR * Echo 03/11/2021- EF is 50 to 55%. Mild to moderate left ventricular hypertrophy. Severe mitral regurgitation, moderate tricuspid regurgitation, mild pulmonary hypertension RVSP is 40 to 45 mmHg, and trace pericardial effusion * Plan for outpatient referral valvulapathy BRIDGET on CKD * Patient on HD and being followed by nephrology HTN * Optimize hypertensive regimen. Discontinued diltiazem 60 mg PO and and amlodipine 5mg PO. * Continue metoprolol 12.5mg PO BID DVT prophylaxis * Per primary team Signed by Nicolas Rodarte NP Patient seen in conjunction with Dr. Canales who agrees with plan. Will continue to follow - Patient Problems (1) Acute kidney injury superimposed on chronic kidney disease Current Visit: Yes Status: Acute (2) DVT prophylaxis Current Visit: Yes Status: Acute (3) Nausea vomiting and diarrhea Current Visit: Yes Status: Acute (4) Hypokalemia Current Visit: Yes Status: Acute (5) Uremia Current Visit: Yes Status: Acute (6) Mitral regurgitation Current Visit: Yes Status: Acute Subjective Date of service: 03/13/21 Principal diagnosis: N/V/D Interval history: Complains of MSK chest pain when changing position sinus tachycardia 110s intermittently up to 140s and 150s with exertions. had several 3beat runs of nonsustained VT(asymptomatic) Objective Vital Signs Temp Pulse Pulse Resp BP Pulse Ox 03/12/21 22:37 100 H 03/12/21 22:00 100 H 03/12/21 21:07 99.0 F 100 H 16 92/60 98 03/12/21 17:34 99.8 F H 104 H 20 86/51 98 03/12/21 14:11 100 - Physical Examination General: No Apparent Distress HEENT: Positive: PERRL Neck: Positive: trachea midline Neuro: Positive: Grossly Intact Abdomen: Positive: Soft Skin: Positive: Clear Extremities: Present: normal, upper extr. pulses - Labs and Meds Cardiac Enzymes 03/13/21 Range/Units 04:36 AST 54 H (5-40) units/L CBC 03/13/21 Range/Units 04:36 WBC 5.4 (4.5-11.0) K/mm3 RBC 2.24 L (3.65-5.03) M/mm3 Hgb 6.3 L (10.1-14.3) gm/dl Hct 19.7 L* (30.3-42.9) % Plt Count 229 (140-440) K/mm3 Lymph # (Auto) 0.9 L (1.2-5.4) K/mm3 [place] # (Auto) 0.8 (0.0-0.8) K/mm3 Eos # (Auto) 0.1 (0.0-0.4) K/mm3 Baso # (Auto) 0.0 (0.0-0.1) K/mm3 Comprehensive Metabolic Panel 03/12/21 03/13/21 Range/Units 17:48 04:36 Sodium 136 L (137-145) mmol/L Potassium 4.1 D 3.6 (3.6-5.0) mmol/L Chloride 96.1 L (98-107) mmol/L Carbon Dioxide 26 (22-30) mmol/L BUN 34 H (7-17) mg/dL Creatinine 7.6 H (0.6-1.2) mg/dL Glucose 82 (65-100) mg/dL Calcium 6.0 L (8.4-10.2) mg/dL AST 54 H (5-40) units/L ALT 16 (7-56) units/L Alkaline Phosphatase 263 H (35-129) units/L Total Protein 6.0 L (6.3-8.2) g/dL Albumin 2.8 L (3.9-5) g/dL - Imaging and Cardiology EKG: report reviewed, image reviewed - EKG Sinus rhythms and dysrhythmias: sinus tachycardia - Allied health notes Allied health notes reviewed: nursing
[2021-03-13] MEDS ORDERED: diphenhydrAMINE 25 MG CAP PO PRN (12:58)
--- NOTE | 2021-03-13 13:17 | Progress Note ---
Assessment and Plan Assessment and plan: 35-year-old female with history of stage IV kidney disease was brought to the emergency room because of nausea vomiting diarrhea. Patient states for the past 2 weeks she has had nausea vomiting and diarrhea. The patient states she is either unable to keep any food by mouth down "goes right through her and produces watery yellow diarrhea. The patient states over the past 2 weeks there were 3 episodes when she wiped she noticed blood on the tissue but never in the bowl. Patient states she has felt fatigued, has shortness of breath and dyspnea on exertion since 02/26/2021. In the emergency room patient is found to have hemoglobin of 7.2 and hematocrit 20.7. Bicarb up 9 and calcium 4.7 1) Nausea vomiting and diarrhea Current Visit: Yes Status: Acute Plan to address problem: Likely from uremia. No diarrhea. Nausea and vomiting progressive improved and resolved with improvement of uremia.. GI consulted, no acute intervention recommended at present. Zofran as needed. (2) GI bleed Current Visit: Yes Status: Acute Plan to address problem: No recurrence of hematochezia. Patient denies history of hemorrhoidal bleed. GI consulted, no acute intervention recommended at present. Continue to monitor hemoglobin. (3) Chronic kidney disease/BRIDGET/ESRD initiated HD Current Visit: Yes Status: Acute Plan to address problem: Per nephrology, ESRD from progression of CKD with significant uremic symptoms, initiated hemodialysis 03/09. Received dialysis daily x3. Creatinine and BUN improving progressively. Continue to monitor renal function and electrolytes as well as volume status. Patient does not have significant volume overload today. Consulted CM for outpatient dialysis placement. (4) Symptomatic anemia Current Visit: Yes Status: Acute Plan to address problem: Patient is getting 1 unit of packed red blood cell. More likely from a CKD then from GI bleed. Hemoglobin stable so far and will continue monitor. No further hematochezia since admitted. Hematochezia could be related to diarrhea, possible hemorrhoids or from frequent wiping. Hemoglobin dropped to 6.3 on 03/12 and ordered pelvis x1. (5) hypocalcemia COVID-19 positive test (U07.1, COVID-19) with Viral Sepsis (A41.89 other specified sepsis) (If respiratory failure present, add as separate assessment) current Visit: Yes Status: Acute Plan to address problem: Likely from CKD patient is getting 1 g of calcium gluconate. Calcitriol started by nephrology. (6) sinus tachycardia, severe mitral regurgitation, moderate pulmonary hypertension Tachycardia could be influenced by neb treatments in the setting of hypokalemia, hypomagnesemia and significant but stable anemia Echocardiogram normal LV size, EF 50 to 50%, mild to moderate LVH, severe mitral regurgitation, normal RV size/function, moderate pulmonary hypertension 40 to 45 mm, moderate tricuspid regurgitation. Troponin normal. BNP elevated in the setting of ESRD but no significant volume overload clinically. CXR showed pulmonary vascular congestion only. TSH free T4 normal. Neb treatment stopped. Sinus tachycardia is improving, 90-1 10 today, cardiology is following, placed on metoprolol. Per cardiology, may need mitral valve repair/replacement pending further assessment. (7) hypokalemia and hypomagnesemia Replenishing aggressively and monitoring (8) low-grade fever 100.9 without leukocytosis, not septic clinically, blood cultured, defer antibiotic therapy for now and monitor closely. (9) elevated D-dimer Altered VQ scan and venous duplex to rule out DVT. DVT prophylaxis SCDs Discussed the patient in detail. History Interval history: Patient has a fever of 100.9 yesterday and 100 today which is new. No cough or dysuria. Right IJ apparently functioning okay and patient has some soreness there. WBC normal. Blood cultures obtained, urine ordered, closely monitoring but antibiotic therapy deferred for now. Patient reports itching since on dialysis. Occasionally had hives. Using Benadryl as needed. Hemoglobin dropped to 6.3 today, ordered PRBC x1. Stool occult blood test negative. Not on anticoagulants. Tachycardia better 90-110 now. Neb treatments stopped . Cardiology following and placed on metoprolol. Denies chest pains or palpitations. Nausea, vomiting much improved and diarrhea resolved. Creatinine improving with dialysis. Tolerated diet well. Hospitalist Physical - Constitutional Vitals: Temp Pulse Resp BP Pulse Ox 98.8 F 102 H 16 98/70 100 03/13/21 12:35 03/13/21 12:35 03/13/21 12:35 03/13/21 12:35 03/13/21 12:35 General appearance: Present: no acute distress, other (Facial pallor noted.) - EENT Eyes: Present: PERRL, EOM intact. Absent: scleral icterus ENT: clear oral mucosa - Neck Neck: Present: supple, other (Left IJ tunnel catheter) - Respiratory Respiratory: bilateral: CTA - Cardiovascular Rhythm: other (Grade 2 apical systolic murmur.) - Extremities Extremities: No edema - Abdominal General gastrointestinal: soft, non-tender, non-distended - Integumentary Integumentary: Absent: rash - Psychiatric Psychiatric: appropriate mood/affect - Neurologic Neurologic: no focal deficits HEART Score - HEART Score Troponin: Troponin T 0.031 ng/mL (0.00-0.029) H 03/11/21 08:32 Results - Labs CBC & Chem 7: 03/13/21 04:36 03/13/21 04:36 Labs: Laboratory Last Values WBC 5.4 K/mm3 (4.5-11.0) 03/13/21 04:36 RBC 2.24 M/mm3 (3.65-5.03) L 03/13/21 04:36 Hgb 6.3 gm/dl (10.1-14.3) L 03/13/21 04:36 Hct 19.7 % (30.3-42.9) L* 03/13/21 04:36 MCV 88 fl (79-97) 03/13/21 04:36 MCH 28 pg (28-32) 03/13/21 04:36 MCHC 32 % (30-34) 03/13/21 04:36 RDW 13.9 % (13.2-15.2) 03/13/21 04:36 Plt Count 229 K/mm3 (140-440) 03/13/21 04:36 Lymph % (Auto) 16.3 % (13.4-35.0) 03/13/21 04:36 [place] % (Auto) 14.0 % (0.0-7.3) H 03/13/21 04:36 Eos % (Auto) 2.6 % (0.0-4.3) 03/13/21 04:36 Baso % (Auto) 0.8 % (0.0-1.8) 03/13/21 04:36 Lymph # (Auto) 0.9 K/mm3 (1.2-5.4) L 03/13/21 04:36 [place] # (Auto) 0.8 K/mm3 (0.0-0.8) 03/13/21 04:36 Eos # (Auto) 0.1 K/mm3 (0.0-0.4) 03/13/21 04:36 Baso # (Auto) 0.0 K/mm3 (0.0-0.1) 03/13/21 04:36 Seg Neutrophils % 66.3 % (40.0-70.0) 03/13/21 04:36 Seg Neutrophils # 3.6 K/mm3 (1.8-7.7) 03/13/21 04:36 D-Dimer 1633.16 ng/mlDDU (0-234) H 03/12/21 17:48 Sodium 136 mmol/L (137-145) L 03/13/21 04:36 Potassium 3.6 mmol/L (3.6-5.0) 03/13/21 04:36 Chloride 96.1 mmol/L (98-107) L 03/13/21 04:36 Carbon Dioxide 26 mmol/L (22-30) 03/13/21 04:36 Anion Gap 18 mmol/L 03/13/21 04:36 BUN 34 mg/dL (7-17) H 03/13/21 04:36 Creatinine 7.6 mg/dL (0.6-1.2) H 03/13/21 04:36 Estimated GFR 7 ml/min 03/13/21 04:36 BUN/Creatinine Ratio 4 % 03/13/21 04:36 Glucose 82 mg/dL (65-100) 03/13/21 04:36 Calcium 6.0 mg/dL (8.4-10.2) L 03/13/21 04:36 Magnesium 1.90 mg/dL (1.7-2.3) 03/13/21 04:36 Total Bilirubin 0.30 mg/dL (0.1-1.2) 03/13/21 04:36 Direct Bilirubin < 0.2 mg/dL (0-0.2) 03/07/21 21:46 Indirect Bilirubin 0.2 mg/dL 03/07/21 21:46 AST 54 units/L (5-40) H 03/13/21 04:36 ALT 16 units/L (7-56) 03/13/21 04:36 Alkaline Phosphatase 263 units/L (35-129) H 03/13/21 04:36 Troponin T 0.031 ng/mL (0.00-0.029) H 03/11/21 08:32 NT-Pro-B Natriuret Pep 10184 pg/mL (0-450) H 03/11/21 08:32 Total Protein 6.0 g/dL (6.3-8.2) L 03/13/21 04:36 Albumin 2.8 g/dL (3.9-5) L 03/13/21 04:36 Albumin/Globulin Ratio 0.9 % 03/13/21 04:36 Triglycerides 88 mg/dL (2-149) 03/11/21 08:32 Cholesterol 140 mg/dL (50-199) 03/11/21 08:32 LDL Cholesterol Direct 82 mg/dL (50-130) 03/11/21 08:32 HDL Cholesterol 46 mg/dL (40-59) 03/11/21 08:32 Cholesterol/HDL Ratio 3.04 % 03/11/21 08:32 TSH 1.920 mlU/mL (0.270-4.200) 03/11/21 08:32 Free T4 1.67 ng/dL (0.76-1.46) H 03/11/21 08:32 PTH Intact 690.0 pg/mL (15-65) H 03/13/21 04:36 Coronavirus (PCR) Negative (Negative) 03/11/21 Unknown Hepatitis A IgM Ab Non-reactive (NonReactive) 03/08/21 20:21 Hep Bs Antigen Non-reactive (Negative) 03/08/21 20:21 Hep B Core IgM Ab Non-reactive (NonReactive) 03/08/21 20:21 Hepatitis C Antibody Non-reactive (NonReactive) 03/08/21 20:21 Blood Type B POSITIVE 03/13/21 07:27 Antibody Screen Negative 03/13/21 07:27 Crossmatch See Detail 03/13/21 07:27 Microbiology: Microbiology 03/12/21 06:19 Peripheral/Venous Blood Culture - Preliminary NO GROWTH AFTER 24 HOURS 03/12/21 05:21 Peripheral/Venous Blood Culture - Preliminary NO GROWTH AFTER 24 HOURS Zimmerman/IV: Voiding Method Toilet Active Medications - Current Medications Current Medications: Generic Name Dose Route Start Last Admin Trade Name Freq PRN Reason Stop Dose Admin Acetaminophen 650 mg 03/08/21 00:43 03/11/21 22:40 Acetaminophen 325 Mg Tab PO 650 mg Q4H PRN Administration Pain MILD(1-3)/Fever >100.5/WARD Calcitriol 0.5 mcg 03/09/21 11:30 03/13/21 09:27 Calcitriol 0.5 Mcg Cap PO 0.5 mcg QDAY VALENTIN Administration Calcium Carbonate/Glycine 1,250 mg 03/13/21 10:00 03/13/21 09:27 Calcium Carbonate 1250 Mg Tab PO 1,250 mg QDAY VALENTIN Administration Diphenhydramine HCl 25 mg 03/13/21 12:58 Diphenhydramine 25 Mg Cap PO Q6H PRN Itching Ergocalciferol 50,000 unit 03/09/21 11:30 03/09/21 12:30 Ergocalciferol (Vit D2) 50,000 Unit Cap PO 50,000 unit We@1000 VALENTIN Administration Famotidine 10 mg 03/10/21 12:00 03/13/21 09:27 Famotidine 10 Mg Tab PO 10 mg BID VALENTIN Administration Hydralazine HCl 10 mg 03/08/21 23:04 03/08/21 23:24 Hydralazine 20 Mg/1 Ml Inj IV 10 mg Q6H PRN Administration Hypertension Sodium Chloride 100 mls @ 999 mls/hr 03/11/21 12:27 Nacl 0.9% IV KYREE PRN Hypotension Metoprolol Tartrate 12.5 mg 03/12/21 10:00 03/13/21 09:27 Metoprolol Tartrate 25 Mg Tab PO 12.5 mg BID VALENTIN Administration Ondansetron HCl 4 mg 03/08/21 00:43 03/10/21 00:37 Ondansetron 4 Mg/2 Ml Inj IV 4 mg Q8H PRN Administration Nausea And Vomiting Sodium Chloride 10 ml 03/08/21 10:00 03/13/21 09:28 Sodium Chloride 0.9% 10 Ml Flush Syringe IV 10 ml BID VALENTIN Administration Sodium Chloride 10 ml 03/08/21 00:43 Sodium Chloride 0.9% 10 Ml Flush Syringe IV PRN PRN LINE FLUSH
[2021-03-13] MEDS ORDERED: HEPARIN 5,000 UNIT/1 ML VIAL SUB-Q SCH (14:00)
--- NOTE | 2021-03-13 15:00 | Progress Note ---
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 I suspect the former. Patient tolerated dialysis treatments x3. Arrangements for outpatient dialysis ongoing. 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 We will follow-up with dialysis clinic tomorrow. Hemodialysis on a Sunday, Sunday and Sunday schedule this week (2) Uremia Current Visit: Yes Status: Acute Plan to address problem: Uremic symptoms resolved with dialysis (3) Hypocalcemia Current Visit: Yes Status: Acute Plan to address problem: Continue calcium supplements. Start calcitriol since PTH is high (4) Hypokalemia Current Visit: Yes Status: Acute Plan to address problem: Supplement potassium and follow-up level (5) Nausea vomiting and diarrhea Current Visit: Yes Status: Acute Plan to address problem: Symptoms resolved (6) Anemia in chronic kidney disease (CKD) Current Visit: Yes Status: Chronic Plan to address problem: Receiving packed red blood cell transfusions. I explained importance of trying to avoid this in the future to avoid sensitization which will decrease her chances of getting a match for kidney transplant. She expressed understanding. Continue erythropoietin on dialysis Subjective Date of service: 03/13/21 Principal diagnosis: N/V/D Interval history: Patient seen lying in bed. She has no complaints. She feels better. No nausea or vomiting. Diarrhea has resolved. No shortness of breath. She is receiving packed red blood cell transfusion. She denies any bleeding Objective - Exam Narrative Exam: Young -Iraqi female lying in bed in no acute distress HEENT: NCAT, pink oral mucous membrane Neck: Supple, no venous distention CVS: S1S2 RRR with no murmur, rub or gallop Chest: Clear to auscultation Abdomen: Protuberant, soft, nontender, no organomegaly, bowel sounds are present Extremities: No edema Neuro: Awake, alert no focal deficits - Vital Signs Vital signs: Vital Signs - 12hr 03/13/21 03/13/21 03/13/21 10:00 12:35 14:03 Temperature 98.8 F Pulse Rate 102 H Pulse Rate [ 102 H From Monitor] Respiratory 16 16 Rate Blood Pressure 98/70 98/61 O2 Sat by Pulse 100 96 Oximetry 03/13/21 03/13/21 03/13/21 14:20 14:39 14:40 Temperature 99 F Pulse Rate 101 H 103 H Pulse Rate [ From Monitor] Respiratory 16 16 Rate Blood Pressure 89/54 95/59 O2 Sat by Pulse 98 99 Oximetry - Lab 03/13/21 04:36 03/13/21 04:36 Most recent lab results Calcium 6.0 mg/dL (8.4-10.2) L 03/13/21 04:36 Magnesium 1.90 mg/dL (1.7-2.3) 03/13/21 04:36 Medications & Allergies - Medications Allergies/Adverse Reactions: Allergies No Known Allergies Allergy (Unverified 03/07/21 21:42) Home Medications: Home Medications Medication Instructions Recorded Confirmed Last Taken Type No Known Home Medications [No 03/08/21 03/08/21 Unknown History Reported Home Medications] Active Medications: Generic Name Dose Route Start Last Admin Trade Name Freq PRN Reason Stop Dose Admin Acetaminophen 650 mg 03/08/21 00:43 03/11/21 22:40 Acetaminophen 325 Mg Tab PO 650 mg Q4H PRN Administration Pain MILD(1-3)/Fever >100.5/WARD Calcitriol 0.5 mcg 03/09/21 11:30 03/13/21 09:27 Calcitriol 0.5 Mcg Cap PO 0.5 mcg QDAY VALENTIN Administration Calcium Carbonate/Glycine 1,250 mg 03/13/21 10:00 03/13/21 09:27 Calcium Carbonate 1250 Mg Tab PO 1,250 mg QDAY VALENTIN Administration Diphenhydramine HCl 25 mg 03/13/21 12:58 03/13/21 13:14 Diphenhydramine 25 Mg Cap PO 25 mg Q6H PRN Administration Itching Ergocalciferol 50,000 unit 03/09/21 11:30 03/09/21 12:30 Ergocalciferol (Vit D2) 50,000 Unit Cap PO 50,000 unit We@1000 VALENTIN Administration Famotidine 10 mg 03/10/21 12:00 03/13/21 09:27 Famotidine 10 Mg Tab PO 10 mg BID VALENTIN Administration Sodium Chloride 100 mls @ 999 mls/hr 03/11/21 12:27 Nacl 0.9% IV KYREE PRN Hypotension Metoprolol Tartrate 12.5 mg 03/12/21 10:00 03/13/21 09:27 Metoprolol Tartrate 25 Mg Tab PO 12.5 mg BID VALENTIN Administration Ondansetron HCl 4 mg 03/08/21 00:43 03/10/21 00:37 Ondansetron 4 Mg/2 Ml Inj IV 4 mg Q8H PRN Administration Nausea And Vomiting Sodium Chloride 10 ml 03/08/21 10:00 03/13/21 09:28 Sodium Chloride 0.9% 10 Ml Flush Syringe IV 10 ml BID VALENTIN Administration Sodium Chloride 10 ml 03/08/21 00:43 Sodium Chloride 0.9% 10 Ml Flush Syringe IV PRN PRN LINE FLUSH
[2021-03-13 21:47] LABS: Iron 34 ug/dL (37-170); Total Iron Binding Capacity 215 mcg/dL (250-450)
[2021-03-14 05:49] LABS: Basophils # (Auto) 0.1 K/mm3 (0.0-0.1); Eosinophils # (Auto) 0.2 K/mm3 (0.0-0.4); Eosinophils % (Auto) 2.5 % (0.0-4.3); Hematocrit 23.7 % (30.3-42.9); Hemoglobin 7.6 gm/dl (10.1-14.3); Lymphocytes % (Auto) 16.4 % (13.4-35.0); Mean Corpuscular HGB Conc 32 % (30-34); Mean Corpuscular Volume 87 fl (79-97); Monocytes # (Auto) 0.8 K/mm3 (0.0-0.8); Monocytes % (Auto) 13.5 % (0.0-7.3); Platelet Count 267 K/mm3 (140-440); Red Blood Count 2.72 M/mm3 (3.65-5.03); Red Cell Distribution Width 13.9 % (13.2-15.2)
[2021-03-14 06:12] LABS: Albumin 2.8 g/dL (3.9-5); Calcium 6.5 mg/dL (8.4-10.2)
--- NOTE | 2021-03-14 08:42 | XRay Report ---
XR chest routine 2V INDICATION / CLINICAL INFORMATION: Elevated D-dimer, VQ scan ordered. COMPARISON: 03/11/2021. FINDINGS: SUPPORT DEVICES: Stable right IJ central venous catheter. HEART /PULMONARY VASCULATURE: Slight increased pulmonary vasculature congestion. LUNGS / PLEURA: Subtle patchy airspace opacities within the lung bases. No pleural effusion or pneumo thorax. ADDITIONAL FINDINGS: No significant additional findings. IMPRESSION: Slight increase in pulmonary vasculature congestion with mild patchy bibasilar airspace opacities, escobedo ggestive of pulmonary edema in the setting of fluid overload/CHF. Signer Name: Jameel Gray MD Signed: 03/14/2021 8:37 AM Workstation Name: [id number]
[2021-03-14] MEDS: METOPROLOL TARTRATE 25 MG TAB PO SCH ×3 (09:09→21:12)
[2021-03-14] MEDS: FAMOTIDINE 10 MG TAB PO SCH ×2 (09:09→21:11)
[2021-03-14] MEDS: CALCIUM CARBONATE 1250 MG TAB PO SCH (09:11)
[2021-03-14] MEDS: ACETAMINOPHEN 325 MG TAB PO PRN ×2 (09:24→21:12)
[2021-03-14] MEDS: CALCITRIOL 0.25 MCG CAP PO SCH (09:31)
--- NOTE | 2021-03-14 10:23 | Progress Note ---
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 I suspect the former. Patient tolerated dialysis treatments x3. Arrangements for outpatient dialysis ongoing. 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 We will follow-up with dialysis clinic tomorrow. Hemodialysis on a Sunday, Sunday and Sunday schedule this week. We will increase fluid removal on dialysis today. Emphasized importance of adhering to fluid restriction 40 to 48 ounces per day. Patient expressed understanding. (2) Uremia Current Visit: Yes Status: Acute Plan to address problem: Uremic symptoms resolved with dialysis (3) Hypocalcemia Current Visit: Yes Status: Acute Plan to address problem: Continue calcium supplements. Started on calcitriol since PTH is high. Follow- up PTH at outpatient dialysis (4) Hypokalemia Current Visit: Yes Status: Acute Plan to address problem: Supplement potassium and follow-up level (5) Nausea vomiting and diarrhea Current Visit: Yes Status: Acute Plan to address problem: Symptoms resolved (6) Anemia in chronic kidney disease (CKD) Current Visit: Yes Status: Chronic Plan to address problem: Receiving packed red blood cell transfusions. I explained importance of trying to avoid this in the future to avoid sensitization which will decrease her chances of getting a match for kidney transplant. She expressed understanding. Continue erythropoietin on dialysis Subjective Date of service: 03/14/21 Principal diagnosis: N/V/D Interval history: Patient seen lying in bed. She complaints of shortness of breath.. No nausea or vomiting. Diarrhea has resolved. S Objective - Exam Narrative Exam: Young -Jordanian female lying in bed in no acute distress HEENT: NCAT, Neck: Supple, no venous distention CVS: S1S2 RRR with no murmur, rub or gallop Chest: Clear to auscultation Abdomen: Protuberant, soft, nontender, no organomegaly, bowel sounds are present Extremities: No edema Neuro: Awake, alert no focal deficits - Vital Signs Vital signs: Vital Signs - 12hr 03/14/21 03/14/21 03/14/21 04:26 07:26 09:09 Pulse Rate 100 H 100 H Pulse Rate [ 100 H From Monitor] Respiratory 20 20 Rate Blood Pressure 122/78 O2 Sat by Pulse 99 99 Oximetry 03/14/21 09:24 Pulse Rate Pulse Rate [ From Monitor] Respiratory 20 Rate Blood Pressure O2 Sat by Pulse Oximetry - Lab 03/14/21 04:30 03/14/21 04:30 Most recent lab results Calcium 6.5 mg/dL (8.4-10.2) L 03/14/21 04:30 Magnesium 1.80 mg/dL (1.7-2.3) 03/14/21 04:30 Medications & Allergies - Medications Allergies/Adverse Reactions: Allergies No Known Allergies Allergy (Unverified 03/07/21 21:42) Home Medications: Home Medications Medication Instructions Recorded Confirmed Last Taken Type No Known Home Medications [No 03/08/21 03/08/21 Unknown History Reported Home Medications] Active Medications: Generic Name Dose Route Start Last Admin Trade Name Freq PRN Reason Stop Dose Admin Acetaminophen 650 mg 03/08/21 00:43 03/14/21 09:24 Acetaminophen 325 Mg Tab PO 650 mg Q4H PRN Administration Pain MILD(1-3)/Fever >100.5/WARD Calcitriol 0.25 mcg 03/14/21 10:00 03/14/21 09:31 Calcitriol 0.25 Mcg Cap PO 0.25 mcg QDAY VALENTIN Administration Calcium Carbonate/Glycine 1,250 mg 03/13/21 10:00 03/14/21 09:11 Calcium Carbonate 1250 Mg Tab PO 1,250 mg QDAY VALENTIN Administration Diphenhydramine HCl 25 mg 03/13/21 12:58 03/13/21 13:14 Diphenhydramine 25 Mg Cap PO 25 mg Q6H PRN Administration Itching Ergocalciferol 50,000 unit 03/09/21 11:30 03/09/21 12:30 Ergocalciferol (Vit D2) 50,000 Unit Cap PO 50,000 unit We@1000 VALENTIN Administration Famotidine 10 mg 03/10/21 12:00 03/14/21 09:09 Famotidine 10 Mg Tab PO 10 mg BID VALENTIN Administration Sodium Chloride 100 mls @ 999 mls/hr 03/11/21 12:27 Nacl 0.9% IV KYREE PRN Hypotension Metoprolol Tartrate 12.5 mg 03/12/21 10:00 03/14/21 09:09 Metoprolol Tartrate 25 Mg Tab PO 12.5 mg BID VALENTIN Administration Ondansetron HCl 4 mg 03/08/21 00:43 03/10/21 00:37 Ondansetron 4 Mg/2 Ml Inj IV 4 mg Q8H PRN Administration Nausea And Vomiting Sodium Chloride 10 ml 03/08/21 10:00 03/14/21 09:10 Sodium Chloride 0.9% 10 Ml Flush Syringe IV 10 ml BID VALENTIN Administration Sodium Chloride 10 ml 03/08/21 00:43 Sodium Chloride 0.9% 10 Ml Flush Syringe IV PRN PRN LINE FLUSH
--- NOTE | 2021-03-14 12:15 | Progress Note ---
Assessment and Plan Sinus Tachycardia in setting of severe anemia * D-dimer noted to be elevated. Management per primary team Severe MR * Echocardiogram 03/11/2021: LVEF 50 to 55%. LV normal size. LV SF normal. Mild to moderate LVH. RV SF is normal. LA mildly dilated. Mild AR. Severe mitral regurg, no evidence of mitral valve stenosis. Moderate TR, mild pulmonary hypertension, RVSP 40 to 45 mmHg. Mild AK. BRIDGET on CKD * Patient on HD and being followed by nephrology HTN * Optimize hypertensive regimen. Discontinued diltiazem 60 mg PO and and amlodipine 5mg PO. * Continue metoprolol 12.5mg PO BID DVT prophylaxis * Per primary team Patient is currently awaiting placement. Will follow Patient should follow-up with Dr Mcadams, [facility] heart specialists at our [place] office on 03/28/21 at 3:30 PM. #[phone] Patient seen in conjunction with Dr. Webster who agrees with this assessment and plan of care. - Patient Problems (1) Acute kidney injury superimposed on chronic kidney disease Current Visit: Yes Status: Acute (2) DVT prophylaxis Current Visit: Yes Status: Acute (3) Nausea vomiting and diarrhea Current Visit: Yes Status: Acute (4) Hypokalemia Current Visit: Yes Status: Acute (5) Uremia Current Visit: Yes Status: Acute (6) Cardiomyopathy Current Visit: Yes Status: Acute (7) Elevated D-dimer Current Visit: Yes Status: Acute Subjective Date of service: 03/14/21 Principal diagnosis: N/V/D Interval history: Patient resting comfortably in bed. No shortness of breath or chest pain overni ght Telemetry reviewed: Sinus rhythm 98. No events Objective Last Vital Signs Temp 98.5 F 03/14/21 09:50 Pulse 89 03/14/21 10:30 Resp 18 03/14/21 09:50 BP 125/88 03/14/21 10:30 Pulse Ox 99 03/14/21 09:50 - Physical Examination General: No Apparent Distress HEENT: Positive: PERRL Neck: Positive: trachea midline Cardiac: Positive: Reg Rate and Rhythm, S1/S2 Lungs: Positive: Normal Exam, Normal Breath Sounds Neuro: Positive: Grossly Intact Abdomen: Positive: Soft Skin: Positive: Clear Musculoskeletal: No Pain Extremities: Present: normal, upper extr. pulses, lower extr. pulses. Absent: edema - Labs and Meds Cardiac Enzymes 03/13/21 03/14/21 Range/Units 20:48 04:30 AST 106 H (5-40) units/L Lactate Dehydrogenase 430 H (91-180) units/L CBC 03/14/21 Range/Units 04:30 WBC 6.1 (4.5-11.0) K/mm3 RBC 2.72 L (3.65-5.03) M/mm3 Hgb 7.6 L (10.1-14.3) gm/dl Hct 23.7 L (30.3-42.9) % Plt Count 267 (140-440) K/mm3 Lymph # (Auto) 1.0 L (1.2-5.4) K/mm3 Rogers # (Auto) 0.8 (0.0-0.8) K/mm3 Eos # (Auto) 0.2 (0.0-0.4) K/mm3 Baso # (Auto) 0.1 (0.0-0.1) K/mm3 Comprehensive Metabolic Panel 03/14/21 Range/Units 04:30 Sodium 136 L (137-145) mmol/L Potassium 4.4 D (3.6-5.0) mmol/L Chloride 97.1 L (98-107) mmol/L Carbon Dioxide 23 (22-30) mmol/L BUN 48 H (7-17) mg/dL Creatinine 9.3 H (0.6-1.2) mg/dL Glucose 95 (65-100) mg/dL Calcium 6.5 L (8.4-10.2) mg/dL AST 106 H (5-40) units/L ALT 33 (7-56) units/L Alkaline Phosphatase 379 H (35-129) units/L Total Protein 6.2 L (6.3-8.2) g/dL Albumin 2.8 L (3.9-5) g/dL - Imaging and Cardiology EKG: report reviewed, image reviewed Echo: report reviewed (Echocardiogram 03/11/2021: LVEF 50 to 55%. LV normal size. LV SF normal. Mild to moderate LVH. RV SF is normal. LA mildly dilated. Mild AR. Severe mitral regurg, no evidence of mitral valve stenosis. Moderate TR, mild pulmonary hypertension, RVSP 40 to 45 mmHg. Mild AK.) - Telemetry EKG Rhythm: Sinus Rhythm - EKG Sinus rhythms and dysrhythmias: sinus tachycardia - Allied health notes Allied health notes reviewed: nursing
--- NOTE | 2021-03-14 14:08 | Nuclear Medicine Report ---
NUCLEAR MEDICINE PERFUSION LUNG SCAN INDICATION / CLINICAL INFORMATION: Elevated D-dimer. TECHNIQUE: 5.0 mCi of Tc-99m MAA were given by IV. COMPARISON: Chest radiograph dated 03/14/2021. FINDINGS: PERFUSION: No significant perfusion defects. There is slight heterogeneous distribution of the radiot racer throughout the left lung but no segmental perfusion defects. ADDITIONAL FINDINGS: None. IMPRESSION: 1. Low probability for pulmonary embolism. Signer Name: Luisa Santiago MD Signed: 03/14/2021 2:04 PM Workstation Name: [id number]
--- NOTE | 2021-03-14 17:44 | Progress Note ---
Assessment and Plan Assessment and plan: 35-year-old female with history of stage IV kidney disease was brought to the emergency room because of nausea vomiting diarrhea. Patient states for the past 2 weeks she has had nausea vomiting and diarrhea. The patient states she is either unable to keep any food by mouth down "goes right through her and produces watery yellow diarrhea. The patient states over the past 2 weeks there were 3 episodes when she wiped she noticed blood on the tissue but never in the bowl. Patient states she has felt fatigued, has shortness of breath and dyspnea on exertion since 02/26/2021. In the emergency room patient is found to have hemoglobin of 7.2 and hematocrit 20.7. Bicarb up 9 and calcium 4.7 1) Nausea vomiting and diarrhea Current Visit: Yes Status: Acute Plan to address problem: Likely from uremia. No diarrhea. Nausea and vomiting improving with improvement of uremia. GI consulted, no acute intervention recommended at present. Zofran as needed. (2) GI bleed Current Visit: Yes Status: Acute Plan to address problem: No recurrence of hematochezia. Patient denies history of hemorrhoidal bleed. GI consulted, no acute intervention recommended at present. Stool occult blood negative. Continue to monitor hemoglobin. (3) Chronic kidney disease/BRIDGET/ESRD initiated HD Current Visit: Yes Status: Acute Plan to address problem: Per nephrology, ESRD from progression of CKD with significant uremic symptoms, initiated hemodialysis 03/09. Received dialysis daily x3. Creatinine and BUN improving progressively. Continue to monitor renal function and electrolytes as well as volume status. Patient is making urine. Patient does not have significant volume overload today. Consulted CM for outpatient dialysis placement. (4) Symptomatic anemia Current Visit: Yes Status: Acute Plan to address problem: Patient is getting 1 unit of packed red blood cell. More likely from a CKD then from GI bleed. Hemoglobin stable so far and will continue monitor. No further hematochezia since admitted. Hematochezia could be related to diarrhea, possible hemorrhoids or from frequent wiping. Stool occult blood negative. Given PRBC transfusions twice will follow, the last 03/13. Iron profile, folate and B12 ordered. Likely needs Epogen. (5) hypocalcemia COVID-19 positive test (U07.1, COVID-19) with Viral Sepsis (A41.89 other specified sepsis) (If respiratory failure present, add as separate assessment) current Visit: Yes Status: Acute Plan to address problem: Likely from CKD patient is getting 1 g of calcium gluconate. Calcitriol started by nephrology. (6) sinus tachycardia, severe mitral regurgitation, moderate pulmonary hypertension Tachycardia could be influenced by neb treatments in the setting of hypokalemia, hypomagnesemia and significant but stable anemia Echocardiogram normal LV size, EF 50 to 50%, mild to moderate LVH, severe mitral regurgitation, normal RV size/function, moderate pulmonary hypertension 40 to 45 mm, moderate tricuspid regurgitation. Troponin normal. BNP elevated in the setting of ESRD but no significant volume overload clinically. CXR showed pulmonary vascular congestion only. TSH free T4 normal. Neb treatment stopped. Sinus tachycardia is improving, cardiology is following, placed on metoprolol. Per cardiology, may need mitral valve repair/replacement pending further assessment. (7) hypokalemia and hypomagnesemia Replenishing aggressively and monitoring (8) low-grade fever 100.9 without leukocytosis, not septic clinically, blood cultures and urine negative, defer antibiotic therapy for now and monitor closely. (9) elevated D-dimer VQ scan low probability for PE and ordered venous duplex to rule out DVT. Heparin not given for DVT in view of dropping hemoglobin DVT prophylaxis SCDs Disposition: Nephrology cleared for discharge once outpatient dialysis arrangements made. Discussed with employment case manager today. Discussed the patient in detail. History Interval history: Low-grade fever since resolving. No cough or dysuria. Right IJ apparently functioning okay and patient has some soreness there. WBC normal. Blood cultures and urine normal. Not started antibiotics empirically. Patient reports itching with dialysis. Occasionally had hives. Using Benadryl as needed. Hemoglobin dropped to 6.3 and given PRBC x1 yesterday. Stool occult blood test negative. Not on anticoagulants. Tachycardia 100-110, improved with the metoprolol. Neb treatments stopped . Cardiology following and placed on metoprolol. Denies chest pains or palpitations. Was hypotensive yesterday and received normal saline bolus with improvement. Undergoing hemodialysis today. Nausea, vomiting much improved and diarrhea resolved. Tolerated diet well. Hospitalist Physical - Constitutional Vitals: Temp Pulse Resp BP Pulse Ox 98 F 92 H 16 147/98 99 03/14/21 14:16 03/14/21 14:16 03/14/21 14:16 03/14/21 14:16 03/14/21 09:50 General appearance: Present: no acute distress, other (Facial pallor noted.) - EENT Eyes: Present: PERRL, EOM intact ENT: clear oral mucosa - Neck Neck: Present: supple, other - Respiratory Respiratory effort: normal (No JVD) Respiratory: bilateral: CTA - Cardiovascular Rhythm: other (Mild sinus tach) - Extremities Extremities: No edema - Abdominal General gastrointestinal: soft, non-tender, non-distended, normal bowel sounds - Integumentary Integumentary: Absent: rash - Psychiatric Psychiatric: appropriate mood/affect - Neurologic Neurologic: no focal deficits HEART Score - HEART Score Troponin: Troponin T 0.031 ng/mL (0.00-0.029) H 03/11/21 08:32 Results - Labs CBC & Chem 7: 03/14/21 04:30 03/14/21 04:30 Labs: Laboratory Last Values WBC 6.1 K/mm3 (4.5-11.0) 03/14/21 04:30 RBC 2.72 M/mm3 (3.65-5.03) L 03/14/21 04:30 Hgb 7.6 gm/dl (10.1-14.3) L 03/14/21 04:30 Hct 23.7 % (30.3-42.9) L 03/14/21 04:30 MCV 87 fl (79-97) 03/14/21 04:30 MCH 28 pg (28-32) 03/14/21 04:30 MCHC 32 % (30-34) 03/14/21 04:30 RDW 13.9 % (13.2-15.2) 03/14/21 04:30 Plt Count 267 K/mm3 (140-440) 03/14/21 04:30 Lymph % (Auto) 16.4 % (13.4-35.0) 03/14/21 04:30 [place] % (Auto) 13.5 % (0.0-7.3) H 03/14/21 04:30 Eos % (Auto) 2.5 % (0.0-4.3) 03/14/21 04:30 Baso % (Auto) 1.0 % (0.0-1.8) 03/14/21 04:30 Lymph # (Auto) 1.0 K/mm3 (1.2-5.4) L 03/14/21 04:30 [place] # (Auto) 0.8 K/mm3 (0.0-0.8) 03/14/21 04:30 Eos # (Auto) 0.2 K/mm3 (0.0-0.4) 03/14/21 04:30 Baso # (Auto) 0.1 K/mm3 (0.0-0.1) 03/14/21 04:30 Seg Neutrophils % 66.6 % (40.0-70.0) 03/14/21 04:30 Seg Neutrophils # 4.1 K/mm3 (1.8-7.7) 03/14/21 04:30 Percent Retic 1.22 % (0.78-2.58) 03/13/21 20:48 D-Dimer 1633.16 ng/mlDDU (0-234) H 03/12/21 17:48 Sodium 136 mmol/L (137-145) L 03/14/21 04:30 Potassium 4.4 mmol/L (3.6-5.0) D 03/14/21 04:30 Chloride 97.1 mmol/L (98-107) L 03/14/21 04:30 Carbon Dioxide 23 mmol/L (22-30) 03/14/21 04:30 Anion Gap 20 mmol/L 03/14/21 04:30 BUN 48 mg/dL (7-17) H 03/14/21 04:30 Creatinine 9.3 mg/dL (0.6-1.2) H 03/14/21 04:30 Estimated GFR 6 ml/min 03/14/21 04:30 BUN/Creatinine Ratio 5 % 03/14/21 04:30 Glucose 95 mg/dL (65-100) 03/14/21 04:30 Calcium 6.5 mg/dL (8.4-10.2) L 03/14/21 04:30 Magnesium 1.80 mg/dL (1.7-2.3) 03/14/21 04:30 Iron 34 ug/dL (37-170) L 03/13/21 20:48 TIBC 215 mcg/dL (250-450) L 03/13/21 20:48 Ferritin 136.6 ng/mL (10.0-200.0) 03/13/21 20:48 Total Bilirubin 0.40 mg/dL (0.1-1.2) 03/14/21 04:30 Direct Bilirubin < 0.2 mg/dL (0-0.2) 03/07/21 21:46 Indirect Bilirubin 0.2 mg/dL 03/07/21 21:46 AST 106 units/L (5-40) H 03/14/21 04:30 ALT 33 units/L (7-56) 03/14/21 04:30 Alkaline Phosphatase 379 units/L (35-129) H 03/14/21 04:30 Lactate Dehydrogenase 430 units/L (91-180) H 03/13/21 20:48 Troponin T 0.031 ng/mL (0.00-0.029) H 03/11/21 08:32 NT-Pro-B Natriuret Pep 05172 pg/mL (0-450) H 03/11/21 08:32 Total Protein 6.2 g/dL (6.3-8.2) L 03/14/21 04:30 Albumin 2.8 g/dL (3.9-5) L 03/14/21 04:30 Albumin/Globulin Ratio 0.8 % 03/14/21 04:30 Triglycerides 88 mg/dL (2-149) 03/11/21 08:32 Cholesterol 140 mg/dL (50-199) 03/11/21 08:32 LDL Cholesterol Direct 82 mg/dL (50-130) 03/11/21 08:32 HDL Cholesterol 46 mg/dL (40-59) 03/11/21 08:32 Cholesterol/HDL Ratio 3.04 % 03/11/21 08:32 Vitamin B12 1490 pg/mL (211-911) H 03/13/21 20:48 Folate 10.70 ng/mL (7.3-26.0) 03/13/21 20:48 TSH 1.920 mlU/mL (0.270-4.200) 03/11/21 08:32 Free T4 1.67 ng/dL (0.76-1.46) H 03/11/21 08:32 PTH Intact 690.0 pg/mL (15-65) H 03/13/21 04:36 Coronavirus (PCR) Negative (Negative) 03/11/21 Unknown Hepatitis A IgM Ab Non-reactive (NonReactive) 03/08/21 20:21 Hep Bs Antigen Non-reactive (Negative) 03/08/21 20:21 Hep B Core IgM Ab Non-reactive (NonReactive) 03/08/21 20:21 Hepatitis C Antibody Non-reactive (NonReactive) 03/08/21 20:21 Blood Type B POSITIVE 03/13/21 07:27 Antibody Screen Negative 03/13/21 07:27 Crossmatch See Detail 03/13/21 07:27 Microbiology: Microbiology 03/12/21 06:19 Peripheral/Venous Blood Culture - Preliminary NO GROWTH AFTER 48 HOURS 03/12/21 05:21 Peripheral/Venous Blood Culture - Preliminary NO GROWTH AFTER 48 HOURS Zimmerman/IV: Voiding Method Toilet Active Medications - Current Medications Current Medications: Generic Name Dose Route Start Last Admin Trade Name Freq PRN Reason Stop Dose Admin Acetaminophen 650 mg 03/08/21 00:43 03/14/21 09:24 Acetaminophen 325 Mg Tab PO 650 mg Q4H PRN Administration Pain MILD(1-3)/Fever >100.5/WARD Calcitriol 0.25 mcg 03/14/21 10:00 03/14/21 09:31 Calcitriol 0.25 Mcg Cap PO 0.25 mcg QDAY VALENTIN Administration Calcium Carbonate/Glycine 1,250 mg 03/13/21 10:00 03/14/21 09:11 Calcium Carbonate 1250 Mg Tab PO 1,250 mg QDAY VALENTIN Administration Diphenhydramine HCl 25 mg 03/13/21 12:58 03/13/21 13:14 Diphenhydramine 25 Mg Cap PO 25 mg Q6H PRN Administration Itching Ergocalciferol 50,000 unit 03/09/21 11:30 03/09/21 12:30 Ergocalciferol (Vit D2) 50,000 Unit Cap PO 50,000 unit We@1000 VALENTIN Administration Famotidine 10 mg 03/10/21 12:00 03/14/21 09:09 Famotidine 10 Mg Tab PO 10 mg BID VALENTIN Administration Sodium Chloride 100 mls @ 999 mls/hr 03/11/21 12:27 Nacl 0.9% IV KYREE PRN Hypotension Metoprolol Tartrate 25 mg 03/14/21 12:00 Metoprolol Tartrate 25 Mg Tab PO BID VALENTIN Ondansetron HCl 4 mg 03/08/21 00:43 03/10/21 00:37 Ondansetron 4 Mg/2 Ml Inj IV 4 mg Q8H PRN Administration Nausea And Vomiting Sodium Chloride 10 ml 03/08/21 10:00 03/14/21 09:10 Sodium Chloride 0.9% 10 Ml Flush Syringe IV 10 ml BID VALENTIN Administration Sodium Chloride 10 ml 03/08/21 00:43 Sodium Chloride 0.9% 10 Ml Flush Syringe IV PRN PRN LINE FLUSH
[2021-03-14 18:39] LABS: Bacteria,Urine 2+ /HPF (Negative); Bilirubin,Urine NEG (Negative); Blood,Urine SM (Negative); Color,Urine Yellow (Yellow); Hyaline Casts,Urine 3 /LPF; Urobilinogen,Urine < 2.0 mg/dL (<2.0)
[2021-03-15 05:52] LABS: Basophils # (Auto) 0.1 K/mm3 (0.0-0.1); Basophils % (Auto) 0.9 % (0.0-1.8); Eosinophils # (Auto) 0.1 K/mm3 (0.0-0.4); Eosinophils % (Auto) 1.8 % (0.0-4.3); Hematocrit 22.5 % (30.3-42.9); Hemoglobin 7.4 gm/dl (10.1-14.3); Lymphocytes # (Auto) 0.6 K/mm3 (1.2-5.4); Lymphocytes % (Auto) 9.1 % (13.4-35.0); Mean Corpuscular HGB Conc 33 % (30-34); Mean Corpuscular Volume 88 fl (79-97); Monocytes # (Auto) 0.9 K/mm3 (0.0-0.8); Monocytes % (Auto) 14.4 % (0.0-7.3); Platelet Count 222 K/mm3 (140-440); Red Blood Count 2.56 M/mm3 (3.65-5.03)
[2021-03-15 06:09] LABS: Calcium 7.3 mg/dL (8.4-10.2)
[2021-03-15] MEDS: FAMOTIDINE 10 MG TAB PO SCH ×2 (09:30→22:49)
[2021-03-15] MEDS: METOPROLOL TARTRATE 25 MG TAB PO SCH ×2 (09:30→22:49)
[2021-03-15] MEDS: CALCITRIOL 0.25 MCG CAP PO SCH (09:30)
[2021-03-15] MEDS ORDERED: MAGNESIUM SULFATE 1 GM in SODIUM CHLORIDE 0.9% 50 ML IV ONE (11:00)
--- NOTE | 2021-03-15 11:13 | Progress Note ---
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 Patient tolerated dialysis treatments x3. Arrangements for outpatient dialysis ongoing. 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 We will follow-up with dialysis clinic tomorrow. Hemodialysis on a Sunday, Sunday and Sunday schedule this week. (2) Uremia Current Visit: Yes Status: Acute Plan to address problem: Uremic symptoms resolved with dialysis (3) Hypocalcemia Current Visit: Yes Status: Acute Plan to address problem: Continue calcium supplements. Started on calcitriol since PTH is high. Follow- up PTH at outpatient dialysis (4) Hypokalemia Current Visit: Yes Status: Acute Plan to address problem: Potassium has improved to normal. Follow-up level (5) Nausea vomiting and diarrhea Current Visit: Yes Status: Acute Plan to address problem: Symptoms resolved (6) Anemia in chronic kidney disease (CKD) Current Visit: Yes Status: Chronic Plan to address problem: Receiving packed red blood cell transfusions. I explained importance of trying to avoid this in the future to avoid sensitization which will decrease her chances of getting a match for kidney transplant. She expressed understanding. Continue erythropoietin on dialysis Subjective Date of service: 03/15/21 Principal diagnosis: N/V/D Interval history: Patient seen lying in bed. She feels better today. She is getting duplex ultrasound of the leg. No nausea or vomiting. Diarrhea has resolved. Objective - Exam Narrative Exam: Young -[place] female lying in bed in no acute distress HEENT: NCAT, Neck: Supple, no venous distention CVS: S1S2 RRR with no murmur, rub or gallop Chest: Clear to auscultation Abdomen: Protuberant, soft, nontender, no organomegaly, bowel sounds are present Extremities: No edema Neuro: Awake, alert no focal deficits - Vital Signs Vital signs: Vital Signs - 12hr 03/15/21 03/15/21 04:18 09:30 Temperature 99.4 F Pulse Rate 100 H 103 H Respiratory 16 Rate Blood Pressure 119/88 105/62 O2 Sat by Pulse 98 Oximetry - Lab 03/15/21 05:25 03/15/21 05:25 Most recent lab results Calcium 7.3 mg/dL (8.4-10.2) L 03/15/21 05:25 Magnesium 1.50 mg/dL (1.7-2.3) L 03/15/21 05:25 Medications & Allergies - Medications Allergies/Adverse Reactions: Allergies No Known Allergies Allergy (Unverified 03/07/21 21:42) Home Medications: Home Medications Medication Instructions Recorded Confirmed Last Taken Type No Known Home Medications [No 03/08/21 03/08/21 Unknown History Reported Home Medications] Active Medications: Generic Name Dose Route Start Last Admin Trade Name Freq PRN Reason Stop Dose Admin Acetaminophen 650 mg 03/08/21 00:43 03/14/21 21:12 Acetaminophen 325 Mg Tab PO 650 mg Q4H PRN Administration Pain MILD(1-3)/Fever >100.5/WARD Calcitriol 0.25 mcg 03/14/21 10:00 03/15/21 09:30 Calcitriol 0.25 Mcg Cap PO 0.25 mcg QDAY VALENTIN Administration Calcium Carbonate/Glycine 1,250 mg 03/13/21 10:00 03/14/21 09:11 Calcium Carbonate 1250 Mg Tab PO 1,250 mg QDAY VALENTIN Administration Diphenhydramine HCl 25 mg 03/13/21 12:58 03/13/21 13:14 Diphenhydramine 25 Mg Cap PO 25 mg Q6H PRN Administration Itching Ergocalciferol 50,000 unit 03/09/21 11:30 03/09/21 12:30 Ergocalciferol (Vit D2) 50,000 Unit Cap PO 50,000 unit We@1000 VALENTIN Administration Famotidine 10 mg 03/10/21 12:00 03/15/21 09:30 Famotidine 10 Mg Tab PO 10 mg BID VALENTIN Administration Sodium Chloride 100 mls @ 999 mls/hr 03/11/21 12:27 Nacl 0.9% IV KYREE PRN Hypotension Magnesium Sulfate 1 gm/ Sodium 52 mls @ 52 mls/hr 03/15/21 11:00 Chloride IV 03/15/21 11:59 ONCE ONE Metoprolol Tartrate 25 mg 03/14/21 12:00 03/15/21 09:30 Metoprolol Tartrate 25 Mg Tab PO 25 mg BID VALENTIN Administration Ondansetron HCl 4 mg 03/08/21 00:43 03/10/21 00:37 Ondansetron 4 Mg/2 Ml Inj IV 4 mg Q8H PRN Administration Nausea And Vomiting Sodium Chloride 10 ml 03/08/21 10:00 03/15/21 09:32 Sodium Chloride 0.9% 10 Ml Flush Syringe IV 10 ml BID VALENTIN Administration Sodium Chloride 10 ml 03/08/21 00:43 Sodium Chloride 0.9% 10 Ml Flush Syringe IV PRN PRN LINE FLUSH
--- NOTE | 2021-03-15 11:24 | Vascular Lab Report ---
DUPLEX DOPPLER LOWER EXTREMITY VEINS, BILATERAL INDICATION: Elevated D-dimer, rule out DVT. TECHNIQUE: Duplex doppler imaging was performed through the veins of both lower extremities using ve nous compression and other maneuvers. COMPARISON: No relevant prior imaging study available. FINDINGS: Right Common femoral vein: Negative. Right Superficial femoral vein: Negative. Right Popliteal vein: Negative. Right Calf veins: Negative. Left Common femoral vein: Negative. Left Superficial femoral vein: Negative. Left Popliteal vein: Negative. Left Calf veins: Negative. Additional findings: None. IMPRESSION: No sonographic evidence for DVT in either lower extremity. Signer Name: Ian Moseley Jr, MD Signed: 03/15/2021 11:20 AM Workstation Name: [id number]
--- NOTE | 2021-03-15 12:09 | Progress Note ---
Assessment and Plan Sinus Tachycardia in setting of severe anemia * D-dimer noted to be elevated. Management per primary team Severe MR * Echocardiogram 03/11/2021: LVEF 50 to 55%. LV normal size. LV SF normal. Mild to moderate LVH. RV SF is normal. LA mildly dilated. Mild AR. Severe mitral regurg, no evidence of mitral valve stenosis. Moderate TR, mild pulmonary hypertension, RVSP 40 to 45 mmHg. Mild MT. BRIDGET on CKD * Patient on HD and being followed by nephrology HTN * Optimize hypertensive regimen. Discontinued diltiazem 60 mg PO and and amlodipine 5mg PO. * Optimize antihypertensive regimen: Increase metoprolol to 25 mg twice daily DVT prophylaxis * Per primary team Patient is currently awaiting HD placement. Patient may discharge from cardiology standpoint once OP HD is established. Will follow Patient should follow-up with Dr Mcadams, [facility] heart specialists at our [place] office on 03/28/21 at 3:30 PM. #[phone] Patient seen in conjunction with Dr. Webster who agrees with this assessment and plan of care. - Patient Problems (1) Acute kidney injury superimposed on chronic kidney disease Current Visit: Yes Status: Acute (2) DVT prophylaxis Current Visit: Yes Status: Acute (3) Nausea vomiting and diarrhea Current Visit: Yes Status: Acute (4) Hypokalemia Current Visit: Yes Status: Acute (5) Uremia Current Visit: Yes Status: Acute (6) Cardiomyopathy Current Visit: Yes Status: Acute (7) Elevated D-dimer Current Visit: Yes Status: Acute (8) Mitral Regurgitation Current Visit: Yes Status: Acute Subjective Date of service: 03/15/21 Principal diagnosis: ESRD Interval history: Patient resting comfortably in bed. No shortness of breath or chest pain overnight Telemetry reviewed: Sinus tach 103. No events Objective Last Vital Signs Temp 99.4 F 03/15/21 04:18 Pulse 94 H 03/15/21 11:32 Resp 18 03/15/21 09:28 BP 105/62 03/15/21 09:30 Pulse Ox 99 03/15/21 11:32 - Physical Examination General: No Apparent Distress HEENT: Positive: PERRL Neck: Positive: trachea midline Cardiac: Positive: Regular Rhythm, S1/S2 Lungs: Positive: Normal Exam, Normal Breath Sounds Neuro: Positive: Grossly Intact Abdomen: Positive: Soft Skin: Positive: Clear Musculoskeletal: No Pain Extremities: Present: normal, upper extr. pulses, lower extr. pulses. Absent: edema - Labs and Meds CBC 03/15/21 Range/Units 05:25 WBC 6.4 (4.5-11.0) K/mm3 RBC 2.56 L (3.65-5.03) M/mm3 Hgb 7.4 L (10.1-14.3) gm/dl Hct 22.5 L (30.3-42.9) % Plt Count 222 (140-440) K/mm3 Lymph # (Auto) 0.6 L (1.2-5.4) K/mm3 [place] # (Auto) 0.9 H (0.0-0.8) K/mm3 Eos # (Auto) 0.1 (0.0-0.4) K/mm3 Baso # (Auto) 0.1 (0.0-0.1) K/mm3 Comprehensive Metabolic Panel 03/15/21 Range/Units 05:25 Sodium 137 (137-145) mmol/L Potassium 4.3 (3.6-5.0) mmol/L Chloride 98.4 (98-107) mmol/L Carbon Dioxide 28 (22-30) mmol/L BUN 27 H (7-17) mg/dL Creatinine 6.1 H (0.6-1.2) mg/dL Glucose 103 H (65-100) mg/dL Calcium 7.3 L (8.4-10.2) mg/dL - Imaging and Cardiology EKG: report reviewed, image reviewed Echo: report reviewed (Echocardiogram 03/11/2021: LVEF 50 to 55%. LV normal size. LV SF normal. Mild to moderate LVH. RV SF is normal. LA mildly dilated. Mild AR. Severe mitral regurg, no evidence of mitral valve stenosis. Moderate TR, mild pulmonary hypertension, RVSP 40 to 45 mmHg. Mild MT.) - Telemetry EKG Rhythm: Sinus Tachycardia - EKG Sinus rhythms and dysrhythmias: sinus tachycardia - Allied health notes Allied health notes reviewed: nursing
--- NOTE | 2021-03-15 13:32 | Progress Note ---
Assessment and Plan Assessment and plan: 35-year-old female with history of stage IV kidney disease was brought to the emergency room because of nausea vomiting diarrhea. Patient states for the past 2 weeks she has had nausea vomiting and diarrhea. The patient states she is either unable to keep any food by mouth down "goes right through her and produces watery yellow diarrhea. The patient states over the past 2 weeks there were 3 episodes when she wiped she noticed blood on the tissue but never in the bowl. Patient states she has felt fatigued, has shortness of breath and dyspnea on exertion since 02/26/2021. In the emergency room patient is found to have hemoglobin of 7.2 and hematocrit 20.7. Bicarb up 9 and calcium 4.7 1) Nausea vomiting and diarrhea Current Visit: Yes Status: Acute Plan to address problem: Likely from uremia. No diarrhea. Nausea and vomiting improving with improvement of uremia. GI consulted, no acute intervention recommended at present. Zofran as needed. (2) GI bleed Current Visit: Yes Status: Acute Plan to address problem: No recurrence of hematochezia. Patient denies history of hemorrhoidal bleed. GI consulted, no acute intervention recommended at present. Stool occult blood negative. Continue to monitor hemoglobin. (3) Chronic kidney disease/BRIDGET/ESRD initiated HD Current Visit: Yes Status: Acute Plan to address problem: Per nephrology, ESRD from progression of CKD with significant uremic symptoms, initiated hemodialysis 03/09. Received dialysis daily x3. Creatinine and BUN improving progressively. Continue to monitor renal function and electrolytes as well as volume status. Patient is making urine. Patient does not have significant volume overload today. Consulted CM for outpatient dialysis placement. (4) Symptomatic anemia Current Visit: Yes Status: Acute Plan to address problem: Patient is getting 1 unit of packed red blood cell. More likely from a CKD then from GI bleed. Hemoglobin stable so far and will continue monitor. No further hematochezia since admitted. Hematochezia could be related to diarrhea, possible hemorrhoids or from frequent wiping. Stool occult blood negative. Given PRBC transfusions twice will follow, the last 03/13. Iron profile, folate and B12 ordered. Likely needs Epogen. (5) hypocalcemia COVID-19 positive test (U07.1, COVID-19) with Viral Sepsis (A41.89 other specified sepsis) (If respiratory failure present, add as separate assessment) current Visit: Yes Status: Acute Plan to address problem: Likely from CKD patient is getting 1 g of calcium gluconate. Calcitriol started by nephrology. (6) sinus tachycardia, severe mitral regurgitation, moderate pulmonary hypertension Tachycardia could be influenced by neb treatments in the setting of hypokalemia, hypomagnesemia and significant but stable anemia Echocardiogram normal LV size, EF 50 to 50%, mild to moderate LVH, severe mitral regurgitation, normal RV size/function, moderate pulmonary hypertension 40 to 45 mm, moderate tricuspid regurgitation. Troponin normal. BNP elevated in the setting of ESRD but no significant volume overload clinically. CXR showed pulmonary vascular congestion only. TSH free T4 normal. Neb treatment stopped. Sinus tachycardia is improving, cardiology is following, placed on metoprolol. Per cardiology, may need mitral valve repair/replacement pending further assessment. (7) hypokalemia and hypomagnesemia Replenishing aggressively and monitoring (8) low-grade fever 100.9 without leukocytosis, not septic clinically, blood cultures and urine negative, defer antibiotic therapy for now and monitor closely. (9) elevated D-dimer VQ scan low probability for PE and ordered venous duplex to rule out DVT. Heparin not given for DVT in view of dropping hemoglobin DVT prophylaxis SCDs Disposition: Nephrology cleared for discharge once outpatient dialysis arrangements made. Discussed with hospice case manager today. Discussed the patient in detail. 03/15: Pt seen and examined, doing well, no new complaints. No new fever, Per report Patient reports itching with dialysis. Occasionally had hives. Using Benadryl as needed. Hemoglobin dropped to 6.3 and given PRBC x1 03/13. Stool occult blood test negative. Not on anticoagulants. Had an episode of Hypotension and tachycardia on the 03/13 but stable today, No further nausea or vomiting or diarrhea. U/S of lower ext ungoing right now. History Interval history: Patient seen and examined, no new complaints. Resting comfortable Hospitalist Physical - Physical exam Narrative exam: General appearance: Present: no acute distress, - EENT Eyes: Present: PERRL, EOM intact ENT: clear oral mucosa - Neck Neck: Present: supple, other - Respiratory Respiratory effort: normal (No JVD) Respiratory: bilateral: CTA - Cardiovascular Rhythm: other (Mild sinus tach) - Extremities Extremities: No edema - Abdominal General gastrointestinal: soft, non-tender, non-distended, normal bowel sounds - Integumentary Integumentary: Absent: rash - Psychiatric Psychiatric: appropriate mood/affect - Neurologic Neurologic: no focal deficits - Constitutional Vitals: Temp Pulse Resp BP Pulse Ox 99.4 F 94 H 18 105/62 99 03/15/21 04:18 03/15/21 11:32 03/15/21 09:28 03/15/21 09:30 03/15/21 11:32 General appearance: Present: no acute distress, other (Facial pallor noted.) HEART Score - HEART Score Troponin: Troponin T 0.031 ng/mL (0.00-0.029) H 03/11/21 08:32 Results - Labs CBC & Chem 7: 03/15/21 05:25 03/15/21 05:25 Labs: Laboratory Last Values WBC 6.4 K/mm3 (4.5-11.0) 03/15/21 05:25 RBC 2.56 M/mm3 (3.65-5.03) L 03/15/21 05:25 Hgb 7.4 gm/dl (10.1-14.3) L 03/15/21 05:25 Hct 22.5 % (30.3-42.9) L 03/15/21 05:25 MCV 88 fl (79-97) 03/15/21 05:25 MCH 29 pg (28-32) 03/15/21 05:25 MCHC 33 % (30-34) 03/15/21 05:25 RDW 14.0 % (13.2-15.2) 03/15/21 05:25 Plt Count 222 K/mm3 (140-440) 03/15/21 05:25 Lymph % (Auto) 9.1 % (13.4-35.0) L 03/15/21 05:25 [place] % (Auto) 14.4 % (0.0-7.3) H 03/15/21 05:25 Eos % (Auto) 1.8 % (0.0-4.3) 03/15/21 05:25 Baso % (Auto) 0.9 % (0.0-1.8) 03/15/21 05:25 Lymph # (Auto) 0.6 K/mm3 (1.2-5.4) L 03/15/21 05:25 [place] # (Auto) 0.9 K/mm3 (0.0-0.8) H 03/15/21 05:25 Eos # (Auto) 0.1 K/mm3 (0.0-0.4) 03/15/21 05:25 Baso # (Auto) 0.1 K/mm3 (0.0-0.1) 03/15/21 05:25 Seg Neutrophils % 73.8 % (40.0-70.0) H 03/15/21 05:25 Seg Neutrophils # 4.7 K/mm3 (1.8-7.7) 03/15/21 05:25 Percent Retic 1.22 % (0.78-2.58) 03/13/21 20:48 D-Dimer 1633.16 ng/mlDDU (0-234) H 03/12/21 17:48 Sodium 137 mmol/L (137-145) 03/15/21 05:25 Potassium 4.3 mmol/L (3.6-5.0) 03/15/21 05:25 Chloride 98.4 mmol/L (98-107) 03/15/21 05:25 Carbon Dioxide 28 mmol/L (22-30) 03/15/21 05:25 Anion Gap 15 mmol/L 03/15/21 05:25 BUN 27 mg/dL (7-17) H 03/15/21 05:25 Creatinine 6.1 mg/dL (0.6-1.2) H 03/15/21 05:25 Estimated GFR 9 ml/min 03/15/21 05:25 BUN/Creatinine Ratio 4 % 03/15/21 05:25 Glucose 103 mg/dL (65-100) H 03/15/21 05:25 Calcium 7.3 mg/dL (8.4-10.2) L 03/15/21 05:25 Magnesium 1.50 mg/dL (1.7-2.3) L 03/15/21 05:25 Iron 34 ug/dL (37-170) L 03/13/21 20:48 TIBC 215 mcg/dL (250-450) L 03/13/21 20:48 Ferritin 136.6 ng/mL (10.0-200.0) 03/13/21 20:48 Total Bilirubin 0.40 mg/dL (0.1-1.2) 03/14/21 04:30 Direct Bilirubin < 0.2 mg/dL (0-0.2) 03/07/21 21:46 Indirect Bilirubin 0.2 mg/dL 03/07/21 21:46 AST 106 units/L (5-40) H 03/14/21 04:30 ALT 33 units/L (7-56) 03/14/21 04:30 Alkaline Phosphatase 379 units/L (35-129) H 03/14/21 04:30 Lactate Dehydrogenase 430 units/L (91-180) H 03/13/21 20:48 Troponin T 0.031 ng/mL (0.00-0.029) H 03/11/21 08:32 NT-Pro-B Natriuret Pep 48036 pg/mL (0-450) H 03/11/21 08:32 Total Protein 6.2 g/dL (6.3-8.2) L 03/14/21 04:30 Albumin 2.8 g/dL (3.9-5) L 03/14/21 04:30 Albumin/Globulin Ratio 0.8 % 03/14/21 04:30 Triglycerides 88 mg/dL (2-149) 03/11/21 08:32 Cholesterol 140 mg/dL (50-199) 03/11/21 08:32 LDL Cholesterol Direct 82 mg/dL (50-130) 03/11/21 08:32 HDL Cholesterol 46 mg/dL (40-59) 03/11/21 08:32 Cholesterol/HDL Ratio 3.04 % 03/11/21 08:32 Vitamin B12 1490 pg/mL (211-911) H 03/13/21 20:48 Folate 10.70 ng/mL (7.3-26.0) 03/13/21 20:48 TSH 1.920 mlU/mL (0.270-4.200) 03/11/21 08:32 Free T4 1.67 ng/dL (0.76-1.46) H 03/11/21 08:32 PTH Intact 690.0 pg/mL (15-65) H 03/13/21 04:36 Urine Color Yellow (Yellow) 03/14/21 18:15 Urine Turbidity Cloudy (Clear) 03/14/21 18:15 Urine pH 7.0 (5.0-7.0) 03/14/21 18:15 Ur Specific [place] 1.006 (1.003-1.030) 03/14/21 18:15 Urine Protein 100 mg/dl mg/dL (Negative) 03/14/21 18:15 Urine Glucose (UA) Neg mg/dL (Negative) 03/14/21 18:15 Urine Ketones Neg mg/dL (Negative) 03/14/21 18:15 Urine Blood Sm (Negative) 03/14/21 18:15 Urine Nitrite Neg (Negative) 03/14/21 18:15 Urine Bilirubin Neg (Negative) 03/14/21 18:15 Urine Urobilinogen < 2.0 mg/dL (<2.0) 03/14/21 18:15 Ur Leukocyte Esterase Sm (Negative) 03/14/21 18:15 Urine WBC (Auto) 8.0 /HPF (0.0-6.0) H 03/14/21 18:15 Urine RBC (Auto) 3.0 /HPF (0.0-6.0) 03/14/21 18:15 U Epithel Cells (Auto) 29.0 /HPF (0-13.0) H 03/14/21 18:15 Urine Bacteria (Auto) 2+ /HPF (Negative) 03/14/21 18:15 Hyaline Casts 3 /LPF 03/14/21 18:15 Urine Yeast (Budding) 2+ /HPF 03/14/21 18:15 Coronavirus (PCR) Negative (Negative) 03/11/21 Unknown Hepatitis A IgM Ab Non-reactive (NonReactive) 03/08/21 20:21 Hep Bs Antigen Non-reactive (Negative) 03/08/21 20:21 Hep B Core IgM Ab Non-reactive (NonReactive) 03/08/21 20:21 Hepatitis C Antibody Non-reactive (NonReactive) 03/08/21 20:21 Blood Type B POSITIVE 03/13/21 07:27 Antibody Screen Negative 03/13/21 07:27 Crossmatch See Detail 03/13/21 07:27 Microbiology: Microbiology 03/12/21 06:19 Peripheral/Venous Blood Culture - Preliminary NO GROWTH AFTER 72 HOURS 03/12/21 05:21 Peripheral/Venous Blood Culture - Preliminary NO GROWTH AFTER 72 HOURS Zimmerman/IV: Voiding Method Toilet Active Medications - Current Medications Current Medications: Generic Name Dose Route Start Last Admin Trade Name Freq PRN Reason Stop Dose Admin Acetaminophen 650 mg 03/08/21 00:43 03/14/21 21:12 Acetaminophen 325 Mg Tab PO 650 mg Q4H PRN Administration Pain MILD(1-3)/Fever >100.5/WARD Calcitriol 0.25 mcg 03/14/21 10:00 03/15/21 09:30 Calcitriol 0.25 Mcg Cap PO 0.25 mcg QDAY VALENTIN Administration Calcium Carbonate/Glycine 1,250 mg 03/13/21 10:00 03/14/21 09:11 Calcium Carbonate 1250 Mg Tab PO 1,250 mg QDAY VALENTIN Administration Diphenhydramine HCl 25 mg 03/13/21 12:58 03/13/21 13:14 Diphenhydramine 25 Mg Cap PO 25 mg Q6H PRN Administration Itching Ergocalciferol 50,000 unit 03/09/21 11:30 03/09/21 12:30 Ergocalciferol (Vit D2) 50,000 Unit Cap PO 50,000 unit We@1000 VALENTIN Administration Famotidine 10 mg 03/10/21 12:00 03/15/21 09:30 Famotidine 10 Mg Tab PO 10 mg BID VALENTIN Administration Sodium Chloride 100 mls @ 999 mls/hr 03/11/21 12:27 Nacl 0.9% IV KYREE PRN Hypotension Metoprolol Tartrate 25 mg 03/14/21 12:00 03/15/21 09:30 Metoprolol Tartrate 25 Mg Tab PO 25 mg BID VALENTIN Administration Ondansetron HCl 4 mg 03/08/21 00:43 03/10/21 00:37 Ondansetron 4 Mg/2 Ml Inj IV 4 mg Q8H PRN Administration Nausea And Vomiting Sodium Chloride 10 ml 03/08/21 10:00 03/15/21 09:32 Sodium Chloride 0.9% 10 Ml Flush Syringe IV 10 ml BID VALENTIN Administration Sodium Chloride 10 ml 03/08/21 00:43 Sodium Chloride 0.9% 10 Ml Flush Syringe IV PRN PRN LINE FLUSH Nutrition/Malnutrition Assess - Dietary Evaluation Nutrition/Malnutrition Findings: Nutrition Notes Start: 03/15/21 08:43 Freq: Status: Active Protocol: Document 03/15/21 08:43 DAVID (Rec: 03/15/21 08:48 DAVID [email or web address]) Nutrition Notes Need for Assessment generated from: LOS Initial or Follow up Assessment Current Diagnosis CKD (stage V CKD) Other Pertinent Diagnosis Uremia, COVID-19 (+), GIB Current Diet Renal Labs/Tests BUN 27 Cr 6.1 Mg 1.5 Pertinent Medications reviewed Height 5 ft 7 in Weight 82.9 kg [place] Body Weight (kg) 61.36 BMI 28.6 Weight Status Overweight Subjective/Other Information Pt screened for LOS. She has consumed 54% of meals since admission. Percent of energy/protein needs met: 56% energy 42% pro Burn Absent Trauma Absent Current % PO Fair (50-74%) Minimum of two criteria No #1 Nutrition Diagnosis Inadequate protein-energy intake As Evidenced by Signs and Symptoms PO intake meeting <75% energy and pro needs Is patient on ventilator? No Is Patient Ambulatory and/or Out of Bed Yes REE-([facility]-ambulatory/OOB) [ 2009.619 NUTR.[id number]] Calculation Used for Recommendations [facility] Additional Notes Pro needs >1.2g/kg: >99g/day Fluid needs 1-1.5L/day Nutrition Intervention Change Diet Order: Continue current diet order Add Supplement/Snack (indicate name/kcal Nepro once daily /protein ) Provides kCal: 425 Provides Protein (gm) 19 Goal #1 PO intake of meals plus ONS to meet at least 75% energy and pro needs Anticipated Discharge Needs: None identified at this time Follow-Up By: 03/17/21 Additional Comments F/U: intakes (meals, ONS)
[2021-03-15] MEDS: CALCIUM CARBONATE 1250 MG TAB PO SCH (14:26)
[2021-03-15] MEDS: ACETAMINOPHEN 325 MG TAB PO PRN (18:30)
[2021-03-15 19:30] LABS: Albumin 3.2 g/dL (3.9-5); Calcium 7.3 mg/dL (8.4-10.2)
--- NOTE | 2021-03-16 09:50 | Progress Note ---
Hospitalist Physical - Constitutional Vitals: Temp Pulse Resp BP Pulse Ox 98.4 F 92 H 18 145/100 95 03/16/21 06:16 03/16/21 06:16 03/16/21 06:16 03/16/21 06:16 03/16/21 06:16 General appearance: Present: no acute distress, other (Facial pallor noted.) HEART Score - HEART Score Troponin: Troponin T 0.031 ng/mL (0.00-0.029) H 03/11/21 08:32 Results - Labs CBC & Chem 7: 03/15/21 05:25 03/15/21 18:37 Labs: Laboratory Last Values WBC 6.4 K/mm3 (4.5-11.0) 03/15/21 05:25 RBC 2.56 M/mm3 (3.65-5.03) L 03/15/21 05:25 Hgb 7.4 gm/dl (10.1-14.3) L 03/15/21 05:25 Hct 22.5 % (30.3-42.9) L 03/15/21 05:25 MCV 88 fl (79-97) 03/15/21 05:25 MCH 29 pg (28-32) 03/15/21 05:25 MCHC 33 % (30-34) 03/15/21 05:25 RDW 14.0 % (13.2-15.2) 03/15/21 05:25 Plt Count 222 K/mm3 (140-440) 03/15/21 05:25 Lymph % (Auto) 9.1 % (13.4-35.0) L 03/15/21 05:25 [place] % (Auto) 14.4 % (0.0-7.3) H 03/15/21 05:25 Eos % (Auto) 1.8 % (0.0-4.3) 03/15/21 05:25 Baso % (Auto) 0.9 % (0.0-1.8) 03/15/21 05:25 Lymph # (Auto) 0.6 K/mm3 (1.2-5.4) L 03/15/21 05:25 [place] # (Auto) 0.9 K/mm3 (0.0-0.8) H 03/15/21 05:25 Eos # (Auto) 0.1 K/mm3 (0.0-0.4) 03/15/21 05:25 Baso # (Auto) 0.1 K/mm3 (0.0-0.1) 03/15/21 05:25 Seg Neutrophils % 73.8 % (40.0-70.0) H 03/15/21 05:25 Seg Neutrophils # 4.7 K/mm3 (1.8-7.7) 03/15/21 05:25 Percent Retic 1.22 % (0.78-2.58) 03/13/21 20:48 D-Dimer 1633.16 ng/mlDDU (0-234) H 03/12/21 17:48 Sodium 135 mmol/L (137-145) L 03/15/21 18:37 Potassium 4.2 mmol/L (3.6-5.0) 03/15/21 18:37 Chloride 93.3 mmol/L (98-107) L 03/15/21 18:37 Carbon Dioxide 28 mmol/L (22-30) 03/15/21 18:37 Anion Gap 18 mmol/L 03/15/21 18:37 BUN 35 mg/dL (7-17) H 03/15/21 18:37 Creatinine 7.0 mg/dL (0.6-1.2) H 03/15/21 18:37 Estimated GFR 8 ml/min 03/15/21 18:37 BUN/Creatinine Ratio 5 % 03/15/21 18:37 Glucose 136 mg/dL (65-100) H 03/15/21 18:37 Calcium 7.3 mg/dL (8.4-10.2) L 03/15/21 18:37 Magnesium 1.50 mg/dL (1.7-2.3) L 03/15/21 05:25 Iron 34 ug/dL (37-170) L 03/13/21 20:48 TIBC 215 mcg/dL (250-450) L 03/13/21 20:48 Ferritin 136.6 ng/mL (10.0-200.0) 03/13/21 20:48 Total Bilirubin 0.30 mg/dL (0.1-1.2) 03/15/21 18:37 Direct Bilirubin < 0.2 mg/dL (0-0.2) 03/07/21 21:46 Indirect Bilirubin 0.2 mg/dL 03/07/21 21:46 AST 55 units/L (5-40) H 03/15/21 18:37 ALT 27 units/L (7-56) 03/15/21 18:37 Alkaline Phosphatase 375 units/L (35-129) H 03/15/21 18:37 Lactate Dehydrogenase 430 units/L (91-180) H 03/13/21 20:48 Troponin T 0.031 ng/mL (0.00-0.029) H 03/11/21 08:32 NT-Pro-B Natriuret Pep 16847 pg/mL (0-450) H 03/11/21 08:32 Total Protein 6.5 g/dL (6.3-8.2) 03/15/21 18:37 Albumin 3.2 g/dL (3.9-5) L 03/15/21 18:37 Albumin/Globulin Ratio 1.0 % 03/15/21 18:37 Triglycerides 88 mg/dL (2-149) 03/11/21 08:32 Cholesterol 140 mg/dL (50-199) 03/11/21 08:32 LDL Cholesterol Direct 82 mg/dL (50-130) 03/11/21 08:32 HDL Cholesterol 46 mg/dL (40-59) 03/11/21 08:32 Cholesterol/HDL Ratio 3.04 % 03/11/21 08:32 Vitamin B12 1490 pg/mL (211-911) H 03/13/21 20:48 Folate 10.70 ng/mL (7.3-26.0) 03/13/21 20:48 TSH 1.920 mlU/mL (0.270-4.200) 03/11/21 08:32 Free T4 1.67 ng/dL (0.76-1.46) H 03/11/21 08:32 PTH Intact 690.0 pg/mL (15-65) H 03/13/21 04:36 Urine Color Yellow (Yellow) 03/14/21 18:15 Urine Turbidity Cloudy (Clear) 03/14/21 18:15 Urine pH 7.0 (5.0-7.0) 03/14/21 18:15 Ur Specific [place] 1.006 (1.003-1.030) 03/14/21 18:15 Urine Protein 100 mg/dl mg/dL (Negative) 03/14/21 18:15 Urine Glucose (UA) Neg mg/dL (Negative) 03/14/21 18:15 Urine Ketones Neg mg/dL (Negative) 03/14/21 18:15 Urine Blood Sm (Negative) 03/14/21 18:15 Urine Nitrite Neg (Negative) 03/14/21 18:15 Urine Bilirubin Neg (Negative) 03/14/21 18:15 Urine Urobilinogen < 2.0 mg/dL (<2.0) 03/14/21 18:15 Ur Leukocyte Esterase Sm (Negative) 03/14/21 18:15 Urine WBC (Auto) 8.0 /HPF (0.0-6.0) H 03/14/21 18:15 Urine RBC (Auto) 3.0 /HPF (0.0-6.0) 03/14/21 18:15 U Epithel Cells (Auto) 29.0 /HPF (0-13.0) H 03/14/21 18:15 Urine Bacteria (Auto) 2+ /HPF (Negative) 03/14/21 18:15 Hyaline Casts 3 /LPF 03/14/21 18:15 Urine Yeast (Budding) 2+ /HPF 03/14/21 18:15 Coronavirus (PCR) Negative (Negative) 03/11/21 Unknown Hepatitis A IgM Ab Non-reactive (NonReactive) 03/08/21 20:21 Hep Bs Antigen Non-reactive (Negative) 03/08/21 20:21 Hep B Core IgM Ab Non-reactive (NonReactive) 03/08/21 20:21 Hepatitis C Antibody Non-reactive (NonReactive) 03/08/21 20:21 Blood Type B POSITIVE 03/13/21 07:27 Antibody Screen Negative 03/13/21 07:27 Crossmatch See Detail 03/13/21 07:27 Microbiology: Microbiology 03/12/21 06:19 Peripheral/Venous Blood Culture - Preliminary NO GROWTH AFTER 4 DAYS 03/12/21 05:21 Peripheral/Venous Blood Culture - Preliminary NO GROWTH AFTER 4 DAYS Zimmerman/IV: Voiding Method Toilet Active Medications - Current Medications Current Medications: Generic Name Dose Route Start Last Admin Trade Name Freq PRN Reason Stop Dose Admin Acetaminophen 650 mg 03/08/21 00:43 03/15/21 18:30 Acetaminophen 325 Mg Tab PO 650 mg Q4H PRN Administration Pain MILD(1-3)/Fever >100.5/WARD Calcitriol 0.25 mcg 03/14/21 10:00 03/15/21 09:30 Calcitriol 0.25 Mcg Cap PO 0.25 mcg QDAY VALENTIN Administration Calcium Carbonate/Glycine 1,250 mg 03/13/21 10:00 03/15/21 14:26 Calcium Carbonate 1250 Mg Tab PO 1,250 mg QDAY VALENTIN Administration Diphenhydramine HCl 25 mg 03/13/21 12:58 03/13/21 13:14 Diphenhydramine 25 Mg Cap PO 25 mg Q6H PRN Administration Itching Ergocalciferol 50,000 unit 03/09/21 11:30 03/09/21 12:30 Ergocalciferol (Vit D2) 50,000 Unit Cap PO 50,000 unit We@1000 VALENTIN Administration Famotidine 10 mg 03/10/21 12:00 03/15/21 22:49 Famotidine 10 Mg Tab PO 10 mg BID VALENTIN Administration Sodium Chloride 100 mls @ 999 mls/hr 03/11/21 12:27 Nacl 0.9% IV KYREE PRN Hypotension Magnesium Sulfate 1 gm/ Sodium 52 mls @ 52 mls/hr 03/16/21 09:50 Chloride IV 03/16/21 10:49 ONCE ONE Metoprolol Tartrate 25 mg 03/14/21 12:00 03/15/21 22:49 Metoprolol Tartrate 25 Mg Tab PO 25 mg BID VALENTIN Administration Ondansetron HCl 4 mg 03/08/21 00:43 03/10/21 00:37 Ondansetron 4 Mg/2 Ml Inj IV 4 mg Q8H PRN Administration Nausea And Vomiting Sodium Chloride 10 ml 03/08/21 10:00 03/16/21 08:46 Sodium Chloride 0.9% 10 Ml Flush Syringe IV Not Given BID VALENTIN Sodium Chloride 10 ml 03/08/21 00:43 Sodium Chloride 0.9% 10 Ml Flush Syringe IV PRN PRN LINE FLUSH Nutrition/Malnutrition Assess - Dietary Evaluation Nutrition/Malnutrition Findings: Nutrition Notes Start: 03/15/21 08:43 Freq: Status: Active Protocol: Document 03/15/21 08:43 DAVID (Rec: 03/15/21 08:48 DAVID [id number]) Nutrition Notes Need for Assessment generated from: LOS Initial or Follow up Assessment Current Diagnosis CKD (stage V CKD) Other Pertinent Diagnosis Uremia, COVID-19 (+), GIB Current Diet Renal Labs/Tests BUN 27 Cr 6.1 Mg 1.5 Pertinent Medications reviewed Height 5 ft 7 in Weight 82.9 kg [place] Body Weight (kg) 61.36 BMI 28.6 Weight Status Overweight Subjective/Other Information Pt screened for LOS. She has consumed 54% of meals since admission. Percent of energy/protein needs met: 56% energy 42% pro Burn Absent Trauma Absent Current % PO Fair (50-74%) Minimum of two criteria No #1 Nutrition Diagnosis Inadequate protein-energy intake As Evidenced by Signs and Symptoms PO intake meeting <75% energy and pro needs Is patient on ventilator? No Is Patient Ambulatory and/or Out of Bed Yes REE-([facility]-ambulatory/OOB) [ 2009.619 NUTR.MSJOOB] Calculation Used for Recommendations [facility] Additional Notes Pro needs >1.2g/kg: >99g/day Fluid needs 1-1.5L/day Nutrition Intervention Change Diet Order: Continue current diet order Add Supplement/Snack (indicate name/kcal Nepro once daily /protein ) Provides kCal: 425 Provides Protein (gm) 19 Goal #1 PO intake of meals plus ONS to meet at least 75% energy and pro needs Anticipated Discharge Needs: None identified at this time Follow-Up By: 03/17/21 Additional Comments F/U: intakes (meals, ONS)
--- NOTE | 2021-03-16 09:55 | Discharge Summary ---
Providers - Providers Date of Admission: 03/08/21 11:06 Attending physician: MARISOL MEDEL MD 03/08/21 00:08 Consult to Physician [CONS] Urgent Comment: Consulting Provider: PEREZ ALICEA Physician Instructions: Reason For Exam: Uremia 03/08/21 00:47 Consult to Physician [CONS] Routine Comment: Consulting Provider: FRANCINE MCGINNIS Physician Instructions: Reason For Exam: Nausea vomiting diarrhea 03/08/21 14:25 Consult to Physician [CONS] Routine Comment: Consulting Provider: BRANDON MORENO Physician Instructions: Reason For Exam: need for permcath for dialysis initiation 03/10/21 11:24 Consult to Case Management [CONS] Routine Services Needed at Discharge: Other Notified:: cm Comment:: Outpatient hemodialysis arrangement Additional Physician Instructions: Patient is initiated on hemodialysis and requires outpatient hemodialysis measurements 03/11/21 11:15 Consult to Physician [CONS] Routine Comment: Consulting Provider: JAZMIN ESPARZA Physician Instructions: Reason For Exam: abnormal EKG Primary care physician: VP OF TECHNOLOGY Hospitalization Reason for admission: Nausea and vomiting Condition: Stable Hospital course: 35-year-old female with history of stage IV kidney disease was brought to the emergency room because of nausea vomiting diarrhea. Patient states for the past 2 weeks she has had nausea vomiting and diarrhea. The patient states she is either unable to keep any food by mouth down "goes right through her and produces watery yellow diarrhea. The patient states over the past 2 weeks there were 3 episodes when she wiped she noticed blood on the tissue but never in the bowl. Patient states she has felt fatigued, has shortness of breath and dyspnea on exertion since 02/26/2021. In the emergency room patient is found to have hemoglobin of 7.2 and hematocrit 20.7. Bicarb up 9 and calcium 4.7 1) Nausea vomiting and diarrhea Current Visit: Yes Status: Acute Plan to address problem: Likely from uremia. No diarrhea. Nausea and vomiting improving with improvement of uremia. GI consulted, no acute intervention recommended at present. Zofran as needed. (2) GI bleed Current Visit: Yes Status: Acute Plan to address problem: No recurrence of hematochezia. Patient denies history of hemorrhoidal bleed. GI consulted, no acute intervention recommended at present. Stool occult blood negative. Continue to monitor hemoglobin. (3) Chronic kidney disease/BRIDGET/ESRD initiated HD Current Visit: Yes Status: Acute Plan to address problem: Per nephrology, ESRD from progression of CKD with significant uremic symptoms, initiated hemodialysis 03/09. Received dialysis daily x3. Creatinine and BUN improving progressively. Continue to monitor renal function and electrolytes as well as volume status. Patient is making urine. Patient does not have significant volume overload today. Consulted CM for outpatient dialysis placement. (4) Symptomatic anemia Current Visit: Yes Status: Acute Plan to address problem: Patient is getting 1 unit of packed red blood cell. More likely from a CKD then from GI bleed. Hemoglobin stable so far and will continue monitor. No further hematochezia since admitted. Hematochezia could be related to diarrhea, possible hemorrhoids or from frequent wiping. Stool occult blood negative. Given PRBC transfusions twice will follow, the last 03/13. Iron profile, folate and B12 ordered. Likely needs Epogen. (5) hypocalcemia current Visit: Yes Status: Acute Plan to address problem: Likely from CKD patient is getting 1 g of calcium gluconate. Calcitriol started by nephrology. (6) sinus tachycardia, severe mitral regurgitation, moderate pulmonary hypertension Tachycardia could be influenced by neb treatments in the setting of hypokalemia, hypomagnesemia and significant but stable anemia Echocardiogram normal LV size, EF 50 to 50%, mild to moderate LVH, severe mitral regurgitation, normal RV size/function, moderate pulmonary hypertension 40 to 45 mm, moderate tricuspid regurgitation. Troponin normal. BNP elevated in the setting of ESRD but no significant volume overload clinically. CXR showed pulmonary vascular congestion only. TSH free T4 normal. Neb treatment stopped. Sinus tachycardia is improving, cardiology is following, placed on metoprolol. Per cardiology, may need mitral valve repair/replacement pending further assessment. (7) hypokalemia and hypomagnesemia Replenishing aggressively and monitoring (8) low-grade fever 100.9 without leukocytosis, not septic clinically, blood cultures and urine n egative, defer antibiotic therapy for now and monitor closely. (9) elevated D-dimer VQ scan low probability for PE and ordered venous duplex to rule out DVT. Heparin not given for DVT in view of dropping hemoglobin Disposition: Nephrology cleared for discharge once outpatient dialysis arrangements made. Discussed with case supervisor today. Discussed the patient in detail. 03/15: Pt seen and examined, doing well, no new complaints. No new fever, Per report Patient reports itching with dialysis. Occasionally had hives. Using Benadryl as needed. Hemoglobin dropped to 6.3 and given PRBC x1 03/13. Stool occult blood test negative. Not on anticoagulants. Had an episode of Hypotension and tachycardia on the 03/13 but stable today, No further nausea or vomiting or diarrhea. U/S of lower ext ungoing right now. 03/16: Patient seen and examined, no new complaints, tolerating diet. COVID 19 testing was negative, US done with no DVT. she now has outpatient HD and understands the importance of follow up. Disposition: DC-01 TO HOME OR SELFCARE Final Discharge Diagnosis (Prints w/discharge instructions): ESRD with Uremia Time spent for discharge: 35 mins Core Measure Documentation - Palliative Care Palliative Care/ Comfort Measures: Not Applicable - Core Measures Any of the following diagnoses?: none Exam - Physical Exam Narrative exam: General appearance: Present: no acute distress, - EENT Eyes: Present: PERRL, EOM intact ENT: clear oral mucosa - Neck Neck: Present: supple, other - Respiratory Respiratory effort: normal (No JVD) Respiratory: bilateral: CTA - Cardiovascular Rhythm: other (Mild sinus tach) - Extremities Extremities: No edema - Abdominal General gastrointestinal: soft, non-tender, non-distended, normal bowel sounds - Integumentary Integumentary: Absent: rash - Psychiatric Psychiatric: appropriate mood/affect - Neurologic Neurologic: no focal deficits - Constitutional Vitals: Temp Pulse Resp BP Pulse Ox 98.4 F 92 H 18 145/100 95 03/16/21 06:16 03/16/21 06:16 03/16/21 06:16 03/16/21 06:16 03/16/21 06:16 Plan Activity: advance as tolerated, fall precautions Diet: renal Special Instructions: restrict fluid intake to (1200cc/day), record daily weights, record daily BP diary Follow up with: ELISABETH MURDOCK MD [Primary Care Provider] - 7 Days BRI ZAMORANO MD [Staff Physician] - 7 Days SHILPI SALAS MD [Staff Physician] - 7 Days Forms: Accompanied Note Prescriptions: diphenhydrAMINE [Benadryl CAP] 25 mg PO Q6H PRN #30 capsule PRN Reason: Itching Metoprolol [Lopressor TAB] 25 mg PO BID #60 tablet Calcium Carbonate [Oscal 1250MG TAB] 1,250 mg PO QDAY #30 tablet Famotidine [Pepcid] 10 mg PO BID #60 tablet calcitrioL [Rocaltrol] 0.25 mcg PO QDAY #30 capsule Ergocalciferol [Vitamin D2] 50,000 unit PO We@1000 #30 capsule
[2021-03-16] MEDS: CALCIUM CARBONATE 1250 MG TAB PO SCH (10:08)
[2021-03-16] MEDS: FAMOTIDINE 10 MG TAB PO SCH (10:09)
[2021-03-16] MEDS: ERGOCALCIFEROL (VIT D2) 50,000 UNIT CAP PO SCH (10:09)
[2021-03-16] MEDS: CALCITRIOL 0.25 MCG CAP PO SCH (10:09)
[2021-03-16] MEDS: METOPROLOL TARTRATE 25 MG TAB PO SCH (10:10)
[2021-03-16] MEDS ORDERED: MAGNESIUM SULFATE 1 GM in SODIUM CHLORIDE 0.9% 50 ML IV ONE (11:00)
--- NOTE | 2021-03-16 11:09 | Progress Note ---
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 Patient tolerated dialysis treatments x3. Arrangements for outpatient dialysis ongoing. 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 We will follow-up with dialysis clinic tomorrow. Hemodialysis on a Sunday, Sunday and Sunday schedule this week. Outpatient dialysis has been arranged at [facility]. Okay to discharge from renal standpoint. (2) Uremia Current Visit: Yes Status: Acute Plan to address problem: Uremic symptoms resolved with dialysis (3) Hypocalcemia Current Visit: Yes Status: Acute Plan to address problem: Continue calcium supplements. Started on calcitriol since PTH is high. Follow- up PTH at outpatient dialysis (4) Hypokalemia Current Visit: Yes Status: Acute Plan to address problem: Potassium has improved to normal. Follow-up level (5) Nausea vomiting and diarrhea Current Visit: Yes Status: Acute Plan to address problem: Symptoms resolved (6) Anemia in chronic kidney disease (CKD) Current Visit: Yes Status: Chronic Plan to address problem: Receiving packed red blood cell transfusions. I explained importance of trying to avoid this in the future to avoid sensitization which will decrease her chances of getting a match for kidney transplant. She expressed understanding. Continue erythropoietin on dialysis Subjective Date of service: 03/16/21 Principal diagnosis: ESRD Interval history: Patient seen lying in bed. She feels better today. No nausea or vomiting. Diarrhea has resolved. Ambulating on the floor with no problems Objective - Exam Narrative Exam: Young -Vietnamese female lying in bed in no acute distress HEENT: NCAT, Neck: Supple, no venous distention CVS: S1S2 RRR with no murmur, rub or gallop Chest: Clear to auscultation Abdomen: Protuberant, soft, nontender, no organomegaly, bowel sounds are present Extremities: No edema Neuro: Awake, alert no focal deficits - Vital Signs Vital signs: Vital Signs - 12hr 03/16/21 03/16/21 06:16 10:10 Temperature 98.4 F Pulse Rate 92 H 100 H Respiratory 18 Rate Blood Pressure 145/100 121/87 O2 Sat by Pulse 95 Oximetry - Lab 03/15/21 05:25 03/15/21 18:37 Most recent lab results Calcium 7.3 mg/dL (8.4-10.2) L 03/15/21 18:37 Magnesium 1.50 mg/dL (1.7-2.3) L 03/15/21 05:25 Medications & Allergies - Medications Allergies/Adverse Reactions: Allergies No Known Allergies Allergy (Unverified 03/07/21 21:42) Home Medications: Home Medications Medication Instructions Recorded Confirmed Last Taken Type Calcium Carbonate [Oscal 1250MG 1,250 mg PO QDAY #30 tablet 03/16/21 Unknown Rx TAB] Ergocalciferol [Vitamin D2] 50,000 unit PO We@1000 #30 capsule 03/16/21 Unknown Rx Famotidine [Pepcid] 10 mg PO BID #60 tablet 03/16/21 Unknown Rx Metoprolol [Lopressor TAB] 25 mg PO BID #60 tablet 03/16/21 Unknown Rx calcitrioL [Rocaltrol] 0.25 mcg PO QDAY #30 capsule 03/16/21 Unknown Rx diphenhydrAMINE [Benadryl CAP] 25 mg PO Q6H PRN #30 capsule 03/16/21 Unknown Rx Active Medications: Generic Name Dose Route Start Last Admin Trade Name Freq PRN Reason Stop Dose Admin Acetaminophen 650 mg 03/08/21 00:43 03/15/21 18:30 Acetaminophen 325 Mg Tab PO 650 mg Q4H PRN Administration Pain MILD(1-3)/Fever >100.5/WARD Calcitriol 0.25 mcg 03/14/21 10:00 03/16/21 10:09 Calcitriol 0.25 Mcg Cap PO 0.25 mcg QDAY VALENTIN Administration Calcium Carbonate/Glycine 1,250 mg 03/13/21 10:00 03/16/21 10:08 Calcium Carbonate 1250 Mg Tab PO 1,250 mg QDAY VALENTIN Administration Diphenhydramine HCl 25 mg 03/13/21 12:58 03/13/21 13:14 Diphenhydramine 25 Mg Cap PO 25 mg Q6H PRN Administration Itching Ergocalciferol 50,000 unit 03/09/21 11:30 03/16/21 10:09 Ergocalciferol (Vit D2) 50,000 Unit Cap PO 50,000 unit We@1000 VALENTIN Administration Famotidine 10 mg 03/10/21 12:00 03/16/21 10:09 Famotidine 10 Mg Tab PO 10 mg BID VALENTIN Administration Sodium Chloride 100 mls @ 999 mls/hr 03/11/21 12:27 Nacl 0.9% IV KYREE PRN Hypotension Magnesium Sulfate 1 gm/ Sodium 52 mls @ 52 mls/hr 03/16/21 11:00 03/16/21 10:44 Chloride IV 03/16/21 11:59 52 mls/hr ONCE ONE Administration Metoprolol Tartrate 25 mg 03/14/21 12:00 03/16/21 10:10 Metoprolol Tartrate 25 Mg Tab PO 25 mg BID VALENTIN Administration Ondansetron HCl 4 mg 03/08/21 00:43 03/10/21 00:37 Ondansetron 4 Mg/2 Ml Inj IV 4 mg Q8H PRN Administration Nausea And Vomiting Sodium Chloride 10 ml 03/08/21 10:00 03/16/21 10:09 Sodium Chloride 0.9% 10 Ml Flush Syringe IV 10 ml BID VALENTIN Administration Sodium Chloride 10 ml 03/08/21 00:43 Sodium Chloride 0.9% 10 Ml Flush Syringe IV PRN PRN LINE FLUSH
--- NOTE | 2021-03-16 11:59 | Progress Note ---
Assessment and Plan Sinus Tachycardia in setting of severe anemia * D-dimer noted to be elevated. Management per primary team Severe MR * Echocardiogram 03/11/2021: LVEF 50 to 55%. LV normal size. LV SF normal. Mild to moderate LVH. RV SF is normal. LA mildly dilated. Mild AR. Severe mitral regurg, no evidence of mitral valve stenosis. Moderate TR, mild pulmonary hypertension, RVSP 40 to 45 mmHg. Mild TN. BRIDGET on CKD * Patient on HD and being followed by nephrology HTN * Optimize hypertensive regimen. Discontinued diltiazem 60 mg PO and and amlodipine 5mg PO. * Optimize antihypertensive regimen: Increase metoprolol to 25 mg twice daily DVT prophylaxis * Per primary team Patient has been scheduled for M/W/F outpatient hemodialysis. Patient may discharge from cardiology standpoint. She will receive dialysis inpatient today and then will be discharged. Patient should follow-up with Dr Mcadams, [facility] heart specialists at our [place] office on 03/28/21 at 3:30 PM. #[phone] Patient seen in conjunction with Dr. Webster who agrees with this assessment and plan of care. - Patient Problems (1) Acute kidney injury superimposed on chronic kidney disease Current Visit: Yes Status: Acute (2) DVT prophylaxis Current Visit: Yes Status: Acute (3) Nausea vomiting and diarrhea Current Visit: Yes Status: Acute (4) Hypokalemia Current Visit: Yes Status: Acute (5) Uremia Current Visit: Yes Status: Acute (6) Cardiomyopathy Current Visit: Yes Status: Acute (7) Elevated D-dimer Current Visit: Yes Status: Acute (8) Mitral Regurgitation Current Visit: Yes Status: Acute Subjective Date of service: 03/16/21 Principal diagnosis: ESRD Interval history: Patient resting comfortably in bed. No shortness of breath or chest pain overnight Not currently on telemetry Objective Last Vital Signs Temp 98.4 F 03/16/21 06:16 Pulse 100 H 03/16/21 10:10 Resp 18 03/16/21 11:24 BP 121/87 03/16/21 10:10 Pulse Ox 95 03/16/21 06:16 - Physical Examination General: No Apparent Distress HEENT: Positive: PERRL Neck: Positive: trachea midline Cardiac: Positive: Reg Rate and Rhythm, S1/S2 Lungs: Positive: Normal Exam, Normal Breath Sounds Neuro: Positive: Grossly Intact Abdomen: Positive: Soft Skin: Positive: Clear Musculoskeletal: No Pain Extremities: Present: normal, upper extr. pulses, lower extr. pulses. Absent: edema - Labs and Meds Cardiac Enzymes 03/15/21 Range/Units 18:37 AST 55 H (5-40) units/L Comprehensive Metabolic Panel 03/15/21 Range/Units 18:37 Sodium 135 L (137-145) mmol/L Potassium 4.2 (3.6-5.0) mmol/L Chloride 93.3 L (98-107) mmol/L Carbon Dioxide 28 (22-30) mmol/L BUN 35 H (7-17) mg/dL Creatinine 7.0 H (0.6-1.2) mg/dL Glucose 136 H (65-100) mg/dL Calcium 7.3 L (8.4-10.2) mg/dL AST 55 H (5-40) units/L ALT 27 (7-56) units/L Alkaline Phosphatase 375 H (35-129) units/L Total Protein 6.5 (6.3-8.2) g/dL Albumin 3.2 L (3.9-5) g/dL - Imaging and Cardiology EKG: report reviewed, image reviewed Echo: report reviewed (Echocardiogram 03/11/2021: LVEF 50 to 55%. LV normal size. LV SF normal. Mild to moderate LVH. RV SF is normal. LA mildly dilated. Mild AR. Severe mitral regurg, no evidence of mitral valve stenosis. Moderate TR, mild pulmonary hypertension, RVSP 40 to 45 mmHg. Mild TN.) - EKG Sinus rhythms and dysrhythmias: sinus tachycardia - Allied health notes Allied health notes reviewed: nursing
[2021-03-17 02:42] VITALS: BP 148/92
== END 2021-03-16 18:19 | disposition home or self-care (01) | DRG 177 ==
LOC: ED 20:55 → 3A 03-08 00:09 → OBSVTOIN 03-08 11:06 → 3A 03-08 17:04
PROVIDERS: ADMIT Hospitalist; ATTEND Internal Medicine
PROC: 0JH63XZ Insertion of Tunneled Vascular Access Device into Chest Subcutaneous Tissue and Fascia, Percutaneous Approach (ICD-10-PCS; principal; 2021-03-08)
PROC: 02H633Z Insertion of Infusion Device into Right Atrium, Percutaneous Approach (ICD-10-PCS; 2021-03-08)
PROC: B5181ZA Fluoroscopy of Superior Vena Cava using Low Osmolar Contrast, Guidance (ICD-10-PCS; 2021-03-08)
PROC: B548ZZA Ultrasonography of Superior Vena Cava, Guidance (ICD-10-PCS; 2021-03-08)
PROC: 30233N1 Transfusion of Nonautologous Red Blood Cells into Peripheral Vein, Percutaneous Approach (ICD-10-PCS; 2021-03-08)
PROC: 5A1D70Z Performance of Urinary Filtration, Intermittent, Less than 6 Hours Per Day (ICD-10-PCS; 2021-03-10)
PROC: 5A1D70Z Performance of Urinary Filtration, Intermittent, Less than 6 Hours Per Day (ICD-10-PCS; 2021-03-11)
PROC: 5A1D70Z Performance of Urinary Filtration, Intermittent, Less than 6 Hours Per Day (ICD-10-PCS; 2021-03-14)
PROC: 5A1D70Z Performance of Urinary Filtration, Intermittent, Less than 6 Hours Per Day (ICD-10-PCS; 2021-03-16)
DX: U07.1 COVID-19 (principal); A41.89 Other specified sepsis; N18.6 End stage renal disease; N17.9 Acute kidney failure, unspecified; K92.2 Gastrointestinal hemorrhage, unspecified; I42.9 Cardiomyopathy, unspecified; I12.0 Hypertensive chronic kidney disease with stage 5 chronic kidney disease or end stage renal disease; E83.51 Hypocalcemia; D63.1 Anemia in chronic kidney disease; E87.6 Hypokalemia; I34.0 Nonrheumatic mitral (valve) insufficiency; I27.20 Pulmonary hypertension, unspecified; E83.42 Hypomagnesemia
CPT/HCPCS: 36415; 36558; 71045; 71046; 77001; 78580; 80048; 80053; 80061; 80074; 80076; 81001; 82271; 82607; 82728; 82747; 83550; 83615; 83735; 83880; 83970; 84132; 84439; 84443; 84484; 85025; 85045; 85379; 86850; 86900; 86901; 86920; 87040; 93005; 93306; 93970; 94640; 96365; 96375; G0378; A9540; C1750; C9113; J0360; J0610; J0690; J1644; J2250; J2270; J2405; J3010; J3475; J3480; J7030; J7040; J7050; P9016; U0003

== ENCOUNTER 2021-04-30 10:33 | Observation (INO) | payer OTHER ==
[2021-04-30 11:43] LABS: Hematocrit 23.7 % (30.3-42.9); Hemoglobin 7.8 gm/dl (10.1-14.3); Mean Corpuscular HGB Conc 33 % (30-34); Mean Corpuscular Volume 89 fl (79-97); Platelet Count 224 K/mm3 (140-440); Red Blood Count 2.67 M/mm3 (3.65-5.03)
[2021-04-30 11:51] LABS: BUN/Creatinine Ratio 5; Blood Urea Nitrogen 35 mg/dL (7-17); Calcium 8.2 mg/dL (8.4-10.2); Hemolysis Index 10
[2021-04-30 11:52] LABS: Red Cell Distribution Width 20.1 % (13.2-15.2)
[2021-04-30] MEDS ORDERED: ASPIRIN 81 MG TAB CHEW PO ONE (11:52)
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
--- NOTE | 2021-04-30 12:09 | XRay Report ---
CHEST 2 VIEWS INDICATION / CLINICAL INFORMATION: sob LE swelling. COMPARISON: 03/14/2021 FINDINGS: SUPPORT DEVICES: Stable, satisfactory device positioning. HEART / MEDIASTINUM: Stable cardiomegaly LUNGS / PLEURA: Findings of mild vascular congestion. No focal lung consolidation. No pneumothorax. ADDITIONAL FINDINGS: No significant additional findings. IMPRESSION: 1. Cardiomegaly with mild pulmonary edema. Signer Name: Xavier Hazel MD Signed: 04/30/2021 12:04 PM Workstation Name: [id number]
[2021-04-30 12:54] LABS: INR 1.33 (0.87-1.13)
[2021-04-30 12:55] LABS: Partial Thromboplastin Time 30.9 Sec. (24.2-36.6)
[2021-04-30 13:01] LABS: Albumin 3.7 g/dL (3.9-5); Bilirubin,Direct 0.7 mg/dL (0-0.2)
--- NOTE | 2021-04-30 13:24 | Nuclear Medicine Report ---
NUCLEAR MEDICINE PERFUSION LUNG SCAN INDICATION / CLINICAL INFORMATION: CHEST PAIN,SOB,. TECHNIQUE: 5.1 mCi of Tc-99m MAA were given by IV. COMPARISON: Chest radiograph dated 04/30/2021. FINDINGS: PERFUSION: Nonspecific small perfusion defects are seen along the lung apices. No other suspicious pe rfusion defects. ADDITIONAL FINDINGS: None. IMPRESSION: 1. Low probability for pulmonary embolism. Signer Name: Sukhi Mccloud MD Signed: 04/30/2021 1:20 PM Workstation Name: [id number]
[2021-04-30] MEDS ORDERED: EPOETIN ALFA-EPBX 10,000 UNIT/1 ML VIAL IV PRN (15:29)
[2021-04-30] MEDS ORDERED: SODIUM CHLORIDE 0.9% 100 ML IV PRN (15:29)
--- NOTE | 2021-04-30 16:40 | History and Physical Report ---
History of Present Illness Chief complaint: I need dialysis History of present illness: 35 YO Female with ESRD on HD(M,W,F), HTN presents to ED for evaluation. Patient reports "I need dialysis. Patient states that she has experienced shortness of breath over the past 1 day with persistent symptoms over the same timeframe. Patient acknowledges missed dialysis yesterday due to lack of transportation. Patient acknowledges chest discomfort. Patient transported to [facility] via private vehicle for further care and evaluation of the aforementioned symptoms. The patient was seen and evaluated in the emergency department. All lab and imaging studies reviewed. Patient found to have end-stage renal disease complicated by fluid overload due to missed dialysis. Patient placed in observation status admitted to medical floor. Nephrology team consulted in ED for urgent dialysis. Patient denies fever, chills, chest pain, palpitation, productive cough, skin rash, recent ill contacts, or known exposure to COVID-19. Prior admission on 03/08/2021 reviewed. All medication listed at time of admission has been reconciled. Past History Past Medical History: ESRD, hypertension, other (See HPI) Past Surgical History: Other (Dialysis access) Social history: single. denies: smoking, alcohol abuse, prescription drug abuse Family history: diabetes, hypertension Medications and Allergies Allergies Allergy/AdvReac Type Severity Reaction Status Date / Time No Known Allergies Allergy Verified 04/30/21 10:42 Home Medications Medication Instructions Recorded Confirmed Last Taken Type Calcium Carbonate [Oscal 1250MG 1,250 mg PO QDAY #30 tablet 03/16/21 Unknown Rx TAB] Ergocalciferol [Vitamin D2] 50,000 unit PO We@1000 #30 capsule 03/16/21 Unknown Rx Famotidine [Pepcid] 10 mg PO BID #60 tablet 03/16/21 Unknown Rx Metoprolol [Lopressor TAB] 25 mg PO BID #60 tablet 03/16/21 Unknown Rx calcitrioL [Rocaltrol] 0.25 mcg PO QDAY #30 capsule 03/16/21 Unknown Rx diphenhydrAMINE [Benadryl CAP] 25 mg PO Q6H PRN #30 capsule 03/16/21 Unknown Rx Active Meds: Active Medications Sodium Chloride (Nacl 0.9%) 100 mls @ 999 mls/hr IV KYREE PRN PRN Reason: Hypotension Review of Systems Constitutional: weight gain, other (I need dialysis), no weight loss, no chills Ears, nose, mouth and throat: no ear pain, no tinnitis, no nose pain Cardiovascular: no chest pain, no palpitations, no rapid/irregular heart beat Respiratory: shortness of breath, no cough, no cough with sputum, no hemoptysis Gastrointestinal: no nausea, no vomiting, no diarrhea, no constipation Genitourinary Female: no pelvic pain, no dysuria, no urinary frequency, no urgency Rectal: no pain, no incontinence, no bleeding Musculoskeletal: no neck stiffness, no neck pain, no shooting leg pain, no redness of joints Integumentary: no rash, no pruritis, no redness, no wounds, no boils Neurological: no transient paralysis, no weakness, no numbness, no tingling, no syncope Psychiatric: no anxiety, no memory loss, no hypersomnia, no suicidal ideation Endocrine: no cold intolerance Hematologic/Lymphatic: no easy bruising, no easy bleeding, no lymphadenopathy Allergic/Immunologic: no urticaria, no allergic rhinitis, no persistent infecti ons, no anaphylaxis Exam - Constitutional Vitals: Temp Pulse Resp BP Pulse Ox 98.2 F 92 H 27 H 189/130 99 04/30/21 10:40 04/30/21 16:31 04/30/21 16:31 04/30/21 16:31 04/30/21 16:31 General appearance: Present: mild distress, well-nourished - EENT Eyes: Present: PERRL ENT: hearing intact, clear oral mucosa - Neck Neck: Present: supple, normal ROM - Respiratory Respiratory effort: labored Respiratory: bilateral: diminished - Cardiovascular Heart Sounds: Present: S1 & S2. Absent: rub, click - Extremities Extremities: pulses symmetrical, No edema Peripheral Pulses: within normal limits - Abdominal General gastrointestinal: Present: soft, non-tender, non-distended, normal bowel sounds Female genitourinary: Present: normal - Integumentary Integumentary: Present: clear, warm, dry - Musculoskeletal Musculoskeletal: gait normal, strength equal bilaterally - Psychiatric Psychiatric: appropriate mood/affect, intact judgment & insight - Neurologic Neurologic: CNII-XII intact, moves all extremities HEART Score - HEART Score EKG: Non-specific Age: < 45 Risk factors: 1-2 risk factors Troponin: Troponin T 0.024 ng/mL (0.00-0.029) 04/30/21 14:46 Troponin: < normal limit - Critical Actions Critical Actions: 0-3 pts:0.9-1.7%risk of adverse cardiac event.Candidate for d ischarge Results - Labs CBC & Chem 7: 04/30/21 11:16 04/30/21 11:16 Labs: Abnormal lab results 04/30/21 04/30/21 04/30/21 Range/Units 11:16 11:16 12:06 RBC 2.67 L (3.65-5.03) M/mm3 Hgb 7.8 L (10.1-14.3) gm/dl Hct 23.7 L (30.3-42.9) % RDW 20.1 H (13.2-15.2) % PT 17.0 H (12.2-14.9) Sec. INR 1.33 H (0.87-1.13) D-Dimer 2178.38 H (0-234) ng/mlDDU Sodium 136 L (137-145) mmol/L Chloride 92.9 L (98-107) mmol/L Carbon Dioxide 20 L (22-30) mmol/L BUN 35 H (7-17) mg/dL Creatinine 7.7 H (0.6-1.2) mg/dL Calcium 8.2 L (8.4-10.2) mg/dL Total Bilirubin (0.1-1.2) mg/dL Direct Bilirubin (0-0.2) mg/dL AST (5-40) units/L Alkaline Phosphatase (35-129) units/L NT-Pro-B Natriuret Pep > 42953 H (0-450) pg/mL Albumin (3.9-5) g/dL 04/30/21 Range/Units 12:06 RBC (3.65-5.03) M/mm3 Hgb (10.1-14.3) gm/dl Hct (30.3-42.9) % RDW (13.2-15.2) % PT (12.2-14.9) Sec. INR (0.87-1.13) D-Dimer (0-234) ng/mlDDU Sodium (137-145) mmol/L Chloride (98-107) mmol/L Carbon Dioxide (22-30) mmol/L BUN (7-17) mg/dL Creatinine (0.6-1.2) mg/dL Calcium (8.4-10.2) mg/dL Total Bilirubin 1.70 H (0.1-1.2) mg/dL Direct Bilirubin 0.7 H (0-0.2) mg/dL AST 42 H (5-40) units/L Alkaline Phosphatase 181 H (35-129) units/L NT-Pro-B Natriuret Pep (0-450) pg/mL Albumin 3.7 L (3.9-5) g/dL Assessment and Plan - Patient Problems (1) End stage renal disease Current Visit: Yes Status: Acute Plan to address problem: Strict I's/O, monitor fluid balance, nephrology team consulted, dialysis as per renal team, avoid nephrotoxic agents. (2) Hypertension Current Visit: Yes Status: Acute Qualifiers: Hypertension type: primary hypertension Qualified Code(s): I10 - Essential (primary) hypertension Plan to address problem: Monitor blood pressure every shift, continue medical management. (3) Volume overload Current Visit: Yes Status: Acute Plan to address problem: Dialysis as per renal team. Patient counseled regarding missed dialysis. Patient states she will attempt to be more compliant in the future. Strict I's/ O, monitor urine output every shift, afterload reduction, dialysis as per renal team. (4) DVT prophylaxis Current Visit: Yes Status: Acute Plan to address problem: SCD to bilateral lower extremities while in bed, patient is ambulatory
[2021-04-30] MEDS ORDERED: ACETAMINOPHEN 325 MG TAB PO PRN (16:42)
[2021-04-30] MEDS ORDERED: HYDROmorphone 1 MG/1 ML INJ IV PRN (16:42)
[2021-04-30] MEDS ORDERED: ONDANSETRON 4 MG/2 ML INJ IV PRN (16:42)
[2021-04-30 16:53] LABS: Hepatitis C Virus Antibody Non-Reactive (NonReactive)
[2021-04-30] MEDS ORDERED: ALBUTEROL 2.5 MG/3 ML NEBU IH PRN (16:58)
[2021-04-30] MEDS: oxyCODONE /ACETAMINOPHEN 5-325MG TAB PO PRN (17:02)
[2021-04-30 17:04] LABS: Hepatitis B Surface Antigen Nonreactive (Negative)
[2021-04-30] MEDS ORDERED: cloNIDine 0.2 MG TAB PO ONE (21:40)
[2021-04-30] MEDS: FAMOTIDINE 10 MG TAB PO SCH (23:36)
[2021-04-30] MEDS: METOPROLOL TARTRATE 25 MG TAB PO SCH (23:36)
[2021-05-01] MEDS: hydrALAZINE 20 MG/1 ML INJ IV PRN ×2 (05:36→16:57)
--- NOTE | 2021-05-01 08:28 | Discharge Summary ---
Providers - Providers Date of Admission: 04/30/21 16:42 Date of discharge: 05/01/21 Attending physician: JODIE GOLDSTEIN 04/30/21 15:19 Consult to Physician [CONS] Stat Comment: Consulting Provider: YURI LO Physician Instructions: Reason For Exam: End-stage renal disease, needing dialysis Primary care physician: DIRECTOR OF PSYCHIATRY Hospitalization Reason for admission: Missed HD Condition: Stable Hospital course: 35 YO Female with ESRD on HD(M,W,F), HTN presents to ED for evaluation. Patient reports "I need dialysis. Patient states that she has experienced shortness of breath over the past 1 day with persistent symptoms over the same timeframe. Patient acknowledges missed dialysis the day prior to admission due to lack of transportation. Patient transported to [facility] via private vehicle for further care and evaluation of the aforementioned symptoms. The patient was seen and evaluated in the emergency department. All lab and imaging studies reviewed. Patient found to have end-stage renal disease complicated by fluid overload due to missed dialysis. Patient placed in observation status admitted to medical floor. Nephrology team consulted in ED for urgent dialysis. The patient underwent hemodialysis and has no further complaints. Patient is felt to have received maximal hospital benefit and will be discharged home if okay with nephrology. Dedicated discharge time 32 minutes. Disposition: 01 HOME / SELF CARE / HOMELESS Final Discharge Diagnosis (Prints w/discharge instructions): ESRD with missed hemodialysis, hypertension, volume overload Core Measure Documentation - Palliative Care Palliative Care/ Comfort Measures: Not Applicable - Core Measures Any of the following diagnoses?: none Exam - Constitutional Vitals: Temp Pulse Resp BP Pulse Ox 98 F 91 H 13 161/101 100 04/30/21 23:37 05/01/21 06:31 05/01/21 06:31 05/01/21 06:31 05/01/21 06:31 General appearance: Present: no acute distress, well-nourished - EENT Eyes: Present: PERRL ENT: hearing intact, clear oral mucosa - Neck Neck: Present: supple, normal ROM - Respiratory Respiratory effort: normal Respiratory: bilateral: CTA - Cardiovascular Heart Sounds: Present: S1 & S2. Absent: rub, click - Extremities Extremities: pulses symmetrical, No edema Peripheral Pulses: within normal limits - Abdominal General gastrointestinal: Present: soft, non-tender, non-distended, normal bowel sounds Female genitourinary: Present: normal - Integumentary Integumentary: Present: clear, warm, dry - Musculoskeletal Musculoskeletal: gait normal, strength equal bilaterally - Psychiatric Psychiatric: appropriate mood/affect, intact judgment & insight - Neurologic Neurologic: CNII-XII intact, moves all extremities Plan Activity: advance as tolerated Weight Bearing Status: Weight Bear as Tolerated Follow up with: PRIMARY CARE, [Primary Care Provider] - 3-5 Days
--- NOTE | 2021-05-01 11:35 | Consultation ---
History of Present Illness - Reason for Consult end stage renal disease - History of Present Illness Pleasant 35 y/o AAF with PMHx of ESRD in the setting of HTN, well known to our outpatient HD clinic at [facility], presented to the ED secondary to worsening shortness of breath in the setting of missed HD treatment on Sunday. She states that unfortunately her car was repossessed and was unable to get transportation to the dialysis facility for her treatment. She received HD yesterday, with goal UF 4L. She tolerated treatment well. Seen in the ER this am. Past History Past Medical History: ESRD, hypertension, other (See HPI) Past Surgical History: Other (Dialysis access) Social history: single. denies: smoking, alcohol abuse, prescription drug abuse Family history: diabetes, hypertension Medications and Allergies Allergies Allergy/AdvReac Type Severity Reaction Status Date / Time No Known Allergies Allergy Verified 04/30/21 10:42 Home Medications Medication Instructions Recorded Confirmed Last Taken Type Calcium Carbonate [Oscal 1250MG 1,250 mg PO QDAY #30 tablet 03/16/21 Unknown Rx TAB] Ergocalciferol [Vitamin D2] 50,000 unit PO We@1000 #30 capsule 03/16/21 Unknown Rx Famotidine [Pepcid] 10 mg PO BID #60 tablet 03/16/21 Unknown Rx Metoprolol [Lopressor TAB] 25 mg PO BID #60 tablet 03/16/21 Unknown Rx calcitrioL [Rocaltrol] 0.25 mcg PO QDAY #30 capsule 03/16/21 Unknown Rx diphenhydrAMINE [Benadryl CAP] 25 mg PO Q6H PRN #30 capsule 03/16/21 Unknown Rx Active Meds: Active Medications Acetaminophen (Acetaminophen 325 Mg Tab) 650 mg PO Q4H PRN PRN Reason: Pain MILD(1-3)/Fever >100.5/WARD Albuterol (Albuterol 2.5 Mg/3 Ml Nebu) 2.5 mg IH Q4HRT PRN PRN Reason: Shortness Of Breath Calcitriol (Calcitriol 0.25 Mcg Cap) 0.25 mcg PO QDAY VALENTIN Calcium Carbonate/Glycine (Calcium Carbonate 1250 Mg Tab) 1,250 mg PO QDAY VALENTIN Diphenhydramine HCl (Diphenhydramine 25 Mg Cap) 25 mg PO Q6H PRN PRN Reason: Itching Ergocalciferol (Ergocalciferol (Vit D2) 50,000 Unit Cap) 50,000 unit PO We@1000 [facility] Famotidine (Famotidine 10 Mg Tab) 10 mg PO BID [facility] Last Admin: 04/30/21 23:36 Dose: 10 mg Documented by: Hydralazine HCl (Hydralazine 20 Mg/1 Ml Inj) 5 mg IV Q4H PRN PRN Reason: Hypertension Last Admin: 05/01/21 05:36 Dose: 5 mg Documented by: Hydromorphone HCl (Hydromorphone 1 Mg/1 Ml Inj) 0.5 mg IV Q12H PRN PRN Reason: Pain , Severe (7-10) Sodium Chloride (Nacl 0.9%) 100 mls @ 999 mls/hr IV KYREE PRN PRN Reason: Hypotension Metoprolol Tartrate (Metoprolol Tartrate 25 Mg Tab) 25 mg PO BID [facility] Last Admin: 04/30/21 23:36 Dose: 25 mg Documented by: Ondansetron HCl (Ondansetron 4 Mg/2 Ml Inj) 4 mg IV Q8H PRN PRN Reason: Nausea And Vomiting Oxycodone/Acetaminophen (Oxycodone /Acetaminophen 5-325mg Tab) 1 tab PO Q12H PRN PRN Reason: Pain, Moderate (4-6) Last Admin: 04/30/21 17:02 Dose: 1 tab Documented by: Sodium Chloride (Sodium Chloride 0.9% 10 Ml Flush Syringe) 10 ml IV BID [facility] Last Admin: 04/30/21 23:36 Dose: 10 ml Documented by: Sodium Chloride (Sodium Chloride 0.9% 10 Ml Flush Syringe) 10 ml IV PRN PRN PRN Reason: LINE FLUSH Review of Systems Cardiovascular: orthopnea, edema Exam - Vital Signs Vital signs: Vital Signs Temp Pulse Resp BP Pulse Ox 98.2 F 111 H 22 214/191 100 04/30/21 10:40 04/30/21 10:40 04/30/21 10:40 04/30/21 10:40 04/30/21 10:40 - General Appearance General appearance: well-developed, well-nourished, appears stated age EENT: ATNC, PERRL Neck: Present: neck supple, trachea midline Respiratory: Decreased Breath Sounds Heart: regular, S1S2 Gastrointestinal: Present: normal, normoactive bowel sounds Integumentary: no rash, warm and dry Neurologic: no focal deficit, alert and oriented x3 Musculoskeletal: Present: deferred Psychiatric: cooperative Results - Lab Results 04/30/21 11:16 05/01/21 04:26 Most recent lab results Calcium 8.0 mg/dL (8.4-10.2) L 05/01/21 04:26 Assessment and Plan - Patient Problems (1) End stage renal disease Current Visit: Yes Status: Chronic Plan to address problem: Will place on inpatient MWF HD schedule. Will need to have CM to help assist patient as she is struggling with transportation to her dialysis facility. She lives in [place], and will work on transferring her to [facility] [place] or [facility] on [address] as she is currently living with her aunt. (2) Hypertensive chronic kidney disease with stage 5 chronic kidney disease or end stage renal disease Current Visit: Yes Status: Chronic Plan to address problem: Will need to optimize her current antihypertensive regimen. Will add her on hydralazine 50 mg BID to her current regimen. I also anticipate that with optimal fluid removal with UF, will see improvement in blood pressure control. (3) Volume overload Current Visit: Yes Status: Acute Plan to address problem: counseled on importance of sodium/fluid restrictions along with importance of compliance with HD treatments. She was able to have ~ 4L UF done yesterday and tolerated treatment well. (4) Uremia Current Visit: No Status: Acute Plan to address problem: In the setting of missed HD treatment. She had been complaining of nausea and generalized malaise along with symptoms of shortness of breath. Back to baseline at this time. Counseled on the importance of compliance with dialysis treatments. Will plan for next HD session tomorrow.
[2021-05-01] MEDS ORDERED: SODIUM CHLORIDE 0.9% 100 ML IV PRN (11:40)
[2021-05-01] MEDS: CALCIUM CARBONATE 1250 MG TAB PO SCH (11:53)
[2021-05-01] MEDS: METOPROLOL TARTRATE 25 MG TAB PO SCH ×2 (11:53→22:03)
[2021-05-01] MEDS: FAMOTIDINE 10 MG TAB PO SCH ×2 (11:54→22:04)
[2021-05-01] MEDS: CALCITRIOL 0.25 MCG CAP PO SCH (11:54)
[2021-05-01] MEDS: hydrALAZINE 25 MG TAB PO SCH ×2 (11:59→22:04)
[2021-05-01] MEDS: oxyCODONE /ACETAMINOPHEN 5-325MG TAB PO PRN (14:17)
[2021-05-02] MEDS: hydrALAZINE 20 MG/1 ML INJ IV PRN ×2 (02:32→10:45)
--- NOTE | 2021-05-02 09:03 | Progress Note ---
Assessment and Plan Assessment and plan: ESRD. Hypertension. Volume overload. Uremia. Medical noncompliance. 05/01/2021. Nephrology to place patient on MWF HD schedule. Case management consultation to assist patient as she is struggling with transportation to her dialysis facility. She lives in [place], and will work on transferring her to [facility] [address] or [facility] on [address] as she is currently living with her aunt. Nephrology added hydralazine to BP regimen. Nephrology counseled the patient on importance of medical compliance. 05/02/2021. Patient will likely have hemodialysis today. Await case management arrangements regarding outpatient hemodialysis and barriers regarding transportation. Increase hydralazine to 100 mg p.o. 3 times daily. History Interval history: No new issues overnight. Hospitalist Physical - Constitutional Vitals: Temp Pulse Resp BP Pulse Ox 99 F 98 H 20 204/109 99 05/02/21 07:30 05/02/21 07:30 05/02/21 07:30 05/02/21 07:30 05/02/21 07:30 General appearance: Present: no acute distress, well-nourished - EENT Eyes: Present: PERRL, EOM intact ENT: hearing intact, clear oral mucosa, dentition normal - Neck Neck: Present: supple, normal ROM - Respiratory Respiratory effort: normal Respiratory: bilateral: CTA - Cardiovascular Rhythm: regular Heart Sounds: Present: S1 & S2. Absent: gallop, rub - Extremities Extremities: no ischemia, No edema, Full ROM - Abdominal General gastrointestinal: soft, non-tender, non-distended, normal bowel sounds - Integumentary Integumentary: Present: clear, warm, dry - Neurologic Neurologic: CNII-XII intact, moves all extremities HEART Score - HEART Score EKG: Non-specific Age: < 45 Risk factors: 1-2 risk factors Troponin: Troponin T 0.028 ng/mL (0.00-0.029) 04/30/21 17:32 Troponin: < normal limit - Critical Actions Critical Actions: 0-3 pts:0.9-1.7%risk of adverse cardiac event.Candidate for discharge Results - Labs CBC & Chem 7: 04/30/21 11:16 05/01/21 04:26 Labs: Laboratory Last Values WBC 8.0 K/mm3 (4.5-11.0) 04/30/21 11:16 RBC 2.67 M/mm3 (3.65-5.03) L 04/30/21 11:16 Hgb 7.8 gm/dl (10.1-14.3) L 04/30/21 11:16 Hct 23.7 % (30.3-42.9) L 04/30/21 11:16 MCV 89 fl (79-97) 04/30/21 11:16 MCH 29 pg (28-32) 04/30/21 11:16 MCHC 33 % (30-34) 04/30/21 11:16 RDW 20.1 % (13.2-15.2) H 04/30/21 11:16 Plt Count 224 K/mm3 (140-440) 04/30/21 11:16 PT 17.0 Sec. (12.2-14.9) H 04/30/21 12:06 INR 1.33 (0.87-1.13) H 04/30/21 12:06 APTT 30.9 Sec. (24.2-36.6) 04/30/21 12:06 D-Dimer 2178.38 ng/mlDDU (0-234) H 04/30/21 12:06 Sodium 136 mmol/L (137-145) L 05/01/21 04:26 Potassium 4.2 mmol/L (3.6-5.0) 05/01/21 04:26 Chloride 98.3 mmol/L (98-107) 05/01/21 04:26 Carbon Dioxide 25 mmol/L (22-30) 05/01/21 04:26 Anion Gap 17 mmol/L 05/01/21 04:26 BUN 20 mg/dL (7-17) H 05/01/21 04:26 Creatinine 5.3 mg/dL (0.6-1.2) H 05/01/21 04:26 Estimated GFR 11 ml/min 05/01/21 04:26 BUN/Creatinine Ratio 4 % 05/01/21 04:26 Glucose 111 mg/dL (65-100) H 05/01/21 04:26 Calcium 8.0 mg/dL (8.4-10.2) L 05/01/21 04:26 Total Bilirubin 1.70 mg/dL (0.1-1.2) H 04/30/21 12:06 Direct Bilirubin 0.7 mg/dL (0-0.2) H 04/30/21 12:06 Indirect Bilirubin 1.0 mg/dL 04/30/21 12:06 AST 42 units/L (5-40) H 04/30/21 12:06 ALT 11 units/L (7-56) 04/30/21 12:06 Alkaline Phosphatase 181 units/L (35-129) H 04/30/21 12:06 Troponin T 0.028 ng/mL (0.00-0.029) 04/30/21 17:32 NT-Pro-B Natriuret Pep > 70006 pg/mL (0-450) H 04/30/21 11:16 Total Protein 6.8 g/dL (6.3-8.2) 04/30/21 12:06 Albumin 3.7 g/dL (3.9-5) L 04/30/21 12:06 Albumin/Globulin Ratio 1.2 % 04/30/21 12:06 Hepatitis A IgM Ab Non-reactive (NonReactive) 04/30/21 16:19 Hep Bs Antigen Nonreactive (Negative) 04/30/21 16:19 Hep B Core IgM Ab Non-reactive (NonReactive) 04/30/21 16:19 Hepatitis C Antibody Non-reactive (NonReactive) 04/30/21 16:19 Zimmerman/IV: Voiding Method Toilet Active Medications - Current Medications Current Medications: Generic Name Dose Route Start Last Admin Trade Name Freq PRN Reason Stop Dose Admin Acetaminophen 650 mg 04/30/21 16:42 Acetaminophen 325 Mg Tab PO Q4H PRN Pain MILD(1-3)/Fever >100.5/WARD Albuterol 2.5 mg 04/30/21 16:58 Albuterol 2.5 Mg/3 Ml Nebu IH Q4HRT PRN Shortness Of Breath Calcitriol 0.25 mcg 05/01/21 10:00 05/01/21 11:54 Calcitriol 0.25 Mcg Cap PO 0.25 mcg QDAY VALENTIN Administration Calcium Carbonate/Glycine 1,250 mg 05/01/21 10:00 05/01/21 11:53 Calcium Carbonate 1250 Mg Tab PO 1,250 mg QDAY VALENTIN Administration Diphenhydramine HCl 25 mg 04/30/21 16:44 Diphenhydramine 25 Mg Cap PO Q6H PRN Itching Ergocalciferol 50,000 unit 05/04/21 10:00 Ergocalciferol (Vit D2) 50,000 Unit Cap PO We@1000 VALENTIN Famotidine 10 mg 04/30/21 22:00 05/01/21 22:04 Famotidine 10 Mg Tab PO 10 mg BID VALENTIN Administration Hydralazine HCl 5 mg 05/01/21 03:55 05/02/21 02:32 Hydralazine 20 Mg/1 Ml Inj IV 5 mg Q4H PRN Administration Hypertension Hydralazine HCl 50 mg 05/01/21 12:00 05/01/21 22:04 Hydralazine 25 Mg Tab PO 50 mg Q12HR VALENTIN Administration Hydromorphone HCl 0.5 mg 04/30/21 16:42 Hydromorphone 1 Mg/1 Ml Inj IV Q12H PRN Pain , Severe (7-10) Sodium Chloride 100 mls @ 999 mls/hr 04/30/21 15:29 Nacl 0.9% IV KYREE PRN Hypotension Sodium Chloride 100 mls @ 999 mls/hr 05/01/21 11:40 Nacl 0.9% IV KYREE PRN Hypotension Metoprolol Tartrate 25 mg 04/30/21 22:00 05/01/21 22:03 Metoprolol Tartrate 25 Mg Tab PO 25 mg BID VALENTIN Administration Ondansetron HCl 4 mg 04/30/21 16:42 Ondansetron 4 Mg/2 Ml Inj IV Q8H PRN Nausea And Vomiting Oxycodone/Acetaminophen 1 tab 04/30/21 17:42 05/01/21 14:17 Oxycodone /Acetaminophen 5-325mg Tab PO 1 tab Q12H PRN Administration Pain, Moderate (4-6) Sodium Chloride 10 ml 04/30/21 22:00 05/01/21 22:04 Sodium Chloride 0.9% 10 Ml Flush Syringe IV 10 ml BID VALENTIN Administration Sodium Chloride 10 ml 04/30/21 16:59 Sodium Chloride 0.9% 10 Ml Flush Syringe IV PRN PRN LINE FLUSH
[2021-05-02] MEDS: METOPROLOL TARTRATE 25 MG TAB PO SCH (10:16)
[2021-05-02] MEDS: diphenhydrAMINE 25 MG CAP PO PRN (13:45)
[2021-05-02] MEDS: oxyCODONE /ACETAMINOPHEN 5-325MG TAB PO PRN (13:45)
[2021-05-02] MEDS: CALCIUM CARBONATE 1250 MG TAB PO SCH (13:46)
[2021-05-02] MEDS: FAMOTIDINE 10 MG TAB PO SCH ×2 (13:47→21:45)
[2021-05-02] MEDS: CALCITRIOL 0.25 MCG CAP PO SCH (13:47)
--- NOTE | 2021-05-02 13:56 | Electrocardiograph Report ---
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
[2021-05-02] MEDS ORDERED: hydrALAZINE 100 MG TAB PO SCH (14:00)
--- NOTE | 2021-05-02 14:16 | Electrocardiograph Report ---
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
[2021-05-02] MEDS ORDERED: ADENOSINE 6 MG/2 ML INJ IV ONE (15:24)
--- NOTE | 2021-05-02 15:28 | Event Note ---
Date: 05/02/21 A rapid response was called overhead. I presented to bedside. The patient was found to be in mild distress with SVT as well as accelerated hypertension. The patient was treated with adenosine 6 mg IV x1 with normalization of heart rate as well as normalization of blood pressure. Cardiology team consulted. Discharge discontinued for further cardiac monitoring.
[2021-05-02] MEDS ORDERED: NIFEdipine XL 30 MG TAB PO ONE ×2 (16:00→21:09)
--- NOTE | 2021-05-02 16:03 | Consultation ---
History of Present Illness Consult date: 05/02/21 Requesting physician: MIGUEL ANGEL CALLE Consult reason: other (SVT) History of present illness: Pt is a 35-year-old AA female who was recently initiated on HD and presented this admission with complaints of SOB and a non-productive cough x 1 day prior to arrival. In addition to dyspnea, she also reports pleuritic chest pain secondary to coughing prior to arrival. She also notes progressive swelling of her lower extremities. Pt states she missed a dialysis session because her car was repossessed. She was thus admitted to undergo volume optimization via HD. Pt was seen by our group during a previous admission in February 2021, at which time she was evaluated for sinus tachycardia in the setting of anemia and was also found to have severe MR via echocardiogram. Cardiology has been consulted this admission for SVT. At approximately 1506 today, pt went in SVT in the 150-160s. She reports feeling her heart race and also reports onset of left-sided chest tightness that radiated up to her jaw. Pt received IV Adenosine 6mg x 1 and converted back to sinus rhythm. At baseline, she appears to be mildly tachycardic in the 90-100s. Of note, pt reports intermittent palpitations of varying durations at home over the past 8 months. Episodes can occur both at rest or with exertion and usually last a few min. She reports intermittent episodes of chest pain (as described above) at home during the same timeframe as well. Also of note, BP has been markedly elevated. Pt states she has issues with BP control at home and often has to be given additional antihypertensives during outpatient HD. Echo 03/11/2021 - EF 50-55%, mild-mod LVH, LA mildly dilated, mild AR, severe MR, no evidence of MS, mod TR, mild pulm HTN w/RVSP 40-45mmHg, mild OR. Past History Past Medical History: dialysis, ESRD, hypertension Past Surgical History: denies: CABG, PTCA Social history: single. denies: smoking, alcohol abuse Family history: CAD, diabetes, hypertension Medications and Allergies Allergies Allergy/AdvReac Type Severity Reaction Status Date / Time No Known Allergies Allergy Verified 04/30/21 10:42 Home Medications Medication Instructions Recorded Confirmed Last Taken Type Calcium Carbonate [Oscal 1250MG 1,250 mg PO QDAY #30 tablet 03/16/21 05/02/21 Unknown Rx TAB] Ergocalciferol [Vitamin D2] 50,000 unit PO We@1000 #30 capsule 03/16/21 05/02/21 Unknown Rx Famotidine [Pepcid] 10 mg PO BID #60 tablet 03/16/21 05/02/21 Unknown Rx Metoprolol [Lopressor TAB] 25 mg PO BID #60 tablet 03/16/21 05/02/21 Unknown Rx calcitrioL [Rocaltrol] 0.25 mcg PO QDAY #30 capsule 03/16/21 05/02/21 Unknown Rx diphenhydrAMINE [Benadryl CAP] 25 mg PO Q6H PRN #30 capsule 03/16/21 05/02/21 Unknown Rx Active Meds: Active Medications Acetaminophen (Acetaminophen 325 Mg Tab) 650 mg PO Q4H PRN PRN Reason: Pain MILD(1-3)/Fever >100.5/WARD Albuterol (Albuterol 2.5 Mg/3 Ml Nebu) 2.5 mg IH Q4HRT PRN PRN Reason: Shortness Of Breath Calcitriol (Calcitriol 0.25 Mcg Cap) 0.25 mcg PO QDAY [facility] Last Admin: 05/02/21 13:47 Dose: 0.25 mcg Documented by: Calcium Carbonate/Glycine (Calcium Carbonate 1250 Mg Tab) 1,250 mg PO QDAY [facility] Last Admin: 05/02/21 13:46 Dose: 1,250 mg Documented by: Diphenhydramine HCl (Diphenhydramine 25 Mg Cap) 25 mg PO Q6H PRN PRN Reason: Itching Last Admin: 05/02/21 13:45 Dose: 25 mg Documented by: Ergocalciferol (Ergocalciferol (Vit D2) 50,000 Unit Cap) 50,000 unit PO We@1000 [facility]IN Famotidine (Famotidine 10 Mg Tab) 10 mg PO BID [facility] Last Admin: 05/02/21 13:47 Dose: 10 mg Documented by: Hydralazine HCl (Hydralazine 20 Mg/1 Ml Inj) 5 mg IV Q4H PRN PRN Reason: Hypertension Last Admin: 05/02/21 10:45 Dose: 5 mg Documented by: Hydralazine HCl (Hydralazine 100 Mg Tab) 100 mg PO Q8HR [facility] Last Admin: 05/02/21 13:45 Dose: 100 mg Documented by: Hydromorphone HCl (Hydromorphone 1 Mg/1 Ml Inj) 0.5 mg IV Q12H PRN PRN Reason: Pain , Severe (7-10) Sodium Chloride (Nacl 0.9%) 100 mls @ 999 mls/hr IV KYREE PRN PRN Reason: Hypotension Metoprolol Tartrate (Metoprolol Tartrate 50 Mg Tab) 50 mg PO BID [facility] Ondansetron HCl (Ondansetron 4 Mg/2 Ml Inj) 4 mg IV Q8H PRN PRN Reason: Nausea And Vomiting Oxycodone/Acetaminophen (Oxycodone /Acetaminophen 5-325mg Tab) 1 tab PO Q12H PRN PRN Reason: Pain, Moderate (4-6) Last Admin: 05/02/21 13:45 Dose: 1 tab Documented by: Sodium Chloride (Sodium Chloride 0.9% 10 Ml Flush Syringe) 10 ml IV BID [facility] Last Admin: 05/02/21 13:47 Dose: 10 ml Documented by: Sodium Chloride (Sodium Chloride 0.9% 10 Ml Flush Syringe) 10 ml IV PRN PRN PRN Reason: LINE FLUSH Review of Systems Constitutional: no fever, no chills Ears, nose, mouth and throat: no nasal congestion, no sore throat Cardiovascular: chest pain, palpitations, rapid/irregular heart beat, edema, shortness of breath, dyspnea on exertion, paroxysmal nocturnal dyspnea, no orthopnea, no syncope, no lightheadedness Respiratory: cough, shortness of breath, dyspnea on exertion Gastrointestinal: no abdominal pain, no nausea, no vomiting Genitourinary Female: no dysuria Musculoskeletal: myalgias, no neck stiffness, no neck pain Integumentary: no rash, no wounds Neurological: no head injury, no paralysis, no weakness, no numbness, no tingling, no seizures, no syncope, no vertigo, no headaches Endocrine: no cold intolerance, no heat intolerance Hematologic/Lymphatic: no easy bruising, no easy bleeding Allergic/Immunologic: no anaphylaxis Physical Examination Last Vital Signs Temp 98.0 F 05/02/21 16:05 Pulse 105 H 05/02/21 16:05 Resp 20 05/02/21 16:05 BP 159/95 05/02/21 16:05 Pulse Ox 99 05/02/21 16:05 General appearance: no acute distress HEENT: Positive: EOMI, Normocephaly Neck: Positive: neck supple, trachea midline Cardiac: Positive: Reg Rate and Rhythm, S1/S2, Systolic Murmur (2/6) Lungs: Positive: Decreased Breath Sounds Neuro: Positive: Grossly Intact Abdomen: Positive: Soft. Negative: Tender Skin: Negative: Rash Musculoskeletal: No Pain Extremities: Present: lower extr. pulses, edema Results 04/30/21 11:16 05/02/21 16:20 Cardiac Enzymes 04/30/21 04/30/21 04/30/21 Range/Units 11:16 11:16 12:06 WBC 8.0 (4.5-11.0) K/mm3 RBC 2.67 L (3.65-5.03) M/mm3 Hgb 7.8 L (10.1-14.3) gm/dl Hct 23.7 L (30.3-42.9) % MCV 89 (79-97) fl MCH 29 (28-32) pg MCHC 33 (30-34) % RDW 20.1 H (13.2-15.2) % Plt Count 224 (140-440) K/mm3 PT 17.0 H (12.2-14.9) Sec. INR 1.33 H (0.87-1.13) APTT 30.9 (24.2-36.6) Sec. D-Dimer 2178.38 H (0-234) ng/mlDDU Sodium 136 L (137-145) mmol/L Potassium 4.4 (3.6-5.0) mmol/L Chloride 92.9 L (98-107) mmol/L Carbon Dioxide 20 L (22-30) mmol/L Anion Gap 28 mmol/L BUN 35 H (7-17) mg/dL Creatinine 7.7 H (0.6-1.2) mg/dL Estimated GFR 7 ml/min BUN/Creatinine Ratio 5 % Glucose 76 (65-100) mg/dL POC Glucose (70-105) mg/dL Calcium 8.2 L (8.4-10.2) mg/dL Total Bilirubin (0.1-1.2) mg/dL Direct Bilirubin (0-0.2) mg/dL Indirect Bilirubin mg/dL ALT (7-56) units/L Alkaline Phosphatase (35-129) units/L Troponin T (0.00-0.029) ng/mL NT-Pro-B Natriuret Pep > 28980 H (0-450) pg/mL Total Protein (6.3-8.2) g/dL Albumin (3.9-5) g/dL Albumin/Globulin Ratio % Hepatitis A IgM Ab (NonReactive) Hep Bs Antigen (Negative) Hep B Core IgM Ab (NonReactive) Hepatitis C Antibody (NonReactive) 04/30/21 04/30/21 04/30/21 Range/Units 12:06 12:06 14:46 WBC (4.5-11.0) K/mm3 RBC (3.65-5.03) M/mm3 Hgb (10.1-14.3) gm/dl Hct (30.3-42.9) % MCV (79-97) fl MCH (28-32) pg MCHC (30-34) % RDW (13.2-15.2) % Plt Count (140-440) K/mm3 PT (12.2-14.9) Sec. INR (0.87-1.13) APTT (24.2-36.6) Sec. D-Dimer (0-234) ng/mlDDU Sodium (137-145) mmol/L Potassium (3.6-5.0) mmol/L Chloride (98-107) mmol/L Carbon Dioxide (22-30) mmol/L Anion Gap mmol/L BUN (7-17) mg/dL Creatinine (0.6-1.2) mg/dL Estimated GFR ml/min BUN/Creatinine Ratio % Glucose (65-100) mg/dL POC Glucose (70-105) mg/dL Calcium (8.4-10.2) mg/dL Total Bilirubin 1.70 H (0.1-1.2) mg/dL Direct Bilirubin 0.7 H (0-0.2) mg/dL Indirect Bilirubin 1.0 mg/dL ALT 11 (7-56) units/L Alkaline Phosphatase 181 H (35-129) units/L Troponin T 0.014 0.024 (0.00-0.029) ng/mL NT-Pro-B Natriuret Pep (0-450) pg/mL Total Protein 6.8 (6.3-8.2) g/dL Albumin 3.7 L (3.9-5) g/dL Albumin/Globulin Ratio 1.2 % Hepatitis A IgM Ab (NonReactive) Hep Bs Antigen (Negative) Hep B Core IgM Ab (NonReactive) Hepatitis C Antibody (NonReactive) 04/30/21 04/30/21 05/01/21 Range/Units 16:19 17:32 04:26 WBC (4.5-11.0) K/mm3 RBC (3.65-5.03) M/mm3 Hgb (10.1-14.3) gm/dl Hct (30.3-42.9) % MCV (79-97) fl MCH (28-32) pg MCHC (30-34) % RDW (13.2-15.2) % Plt Count (140-440) K/mm3 PT (12.2-14.9) Sec. INR (0.87-1.13) APTT (24.2-36.6) Sec. D-Dimer (0-234) ng/mlDDU Sodium 136 L (137-145) mmol/L Potassium 4.2 (3.6-5.0) mmol/L Chloride 98.3 (98-107) mmol/L Carbon Dioxide 25 (22-30) mmol/L Anion Gap 17 mmol/L BUN 20 H (7-17) mg/dL Creatinine 5.3 H (0.6-1.2) mg/dL Estimated GFR 11 ml/min BUN/Creatinine Ratio 4 % Glucose 111 H (65-100) mg/dL POC Glucose (70-105) mg/dL Calcium 8.0 L (8.4-10.2) mg/dL Total Bilirubin (0.1-1.2) mg/dL Direct Bilirubin (0-0.2) mg/dL Indirect Bilirubin mg/dL ALT (7-56) units/L Alkaline Phosphatase (35-129) units/L Troponin T 0.028 (0.00-0.029) ng/mL NT-Pro-B Natriuret Pep (0-450) pg/mL Total Protein (6.3-8.2) g/dL Albumin (3.9-5) g/dL Albumin/Globulin Ratio % Hepatitis A IgM Ab Non-reactive (NonReactive) Hep Bs Antigen Nonreactive (Negative) Hep B Core IgM Ab Non-reactive (NonReactive) Hepatitis C Antibody Non-reactive (NonReactive) 05/02/21 Range/Units 15:22 WBC (4.5-11.0) K/mm3 RBC (3.65-5.03) M/mm3 Hgb (10.1-14.3) gm/dl Hct (30.3-42.9) % MCV (79-97) fl MCH (28-32) pg MCHC (30-34) % RDW (13.2-15.2) % Plt Count (140-440) K/mm3 PT (12.2-14.9) Sec. INR (0.87-1.13) APTT (24.2-36.6) Sec. D-Dimer (0-234) ng/mlDDU Sodium (137-145) mmol/L Potassium (3.6-5.0) mmol/L Chloride (98-107) mmol/L Carbon Dioxide (22-30) mmol/L Anion Gap mmol/L BUN (7-17) mg/dL Creatinine (0.6-1.2) mg/dL Estimated GFR ml/min BUN/Creatinine Ratio % Glucose (65-100) mg/dL POC Glucose 142 H (70-105) mg/dL Calcium (8.4-10.2) mg/dL Total Bilirubin (0.1-1.2) mg/dL Direct Bilirubin (0-0.2) mg/dL Indirect Bilirubin mg/dL ALT (7-56) units/L Alkaline Phosphatase (35-129) units/L Troponin T (0.00-0.029) ng/mL NT-Pro-B Natriuret Pep (0-450) pg/mL Total Protein (6.3-8.2) g/dL Albumin (3.9-5) g/dL Albumin/Globulin Ratio % Hepatitis A IgM Ab (NonReactive) Hep Bs Antigen (Negative) Hep B Core IgM Ab (NonReactive) Hepatitis C Antibody (NonReactive) - Imaging and Cardiology Echo: report reviewed (03/11/2021 - EF 50-55%, mild-mod LVH, LA mildly dilated, mild AR, severe MR, no evidence of MS, mod TR, mild pulm HTN w/RVSP 40-45mmHg, mild OR) EKG: report reviewed, image reviewed - EKG Interpretation EKG: no acute changes EKG interpretations - Telemetry EKG Rhythm: Sinus Tachycardia - EKG Sinus rhythms and dysrhythmias: sinus tachycardia Chamber hypertrophy or enlargement: left atrial enlargement, left ventricular hypertro Assessment and Plan Re-check BMP & Mg. Obtain repeat 12-lead ECG. Continue tele monitoring. Will likely need event monitor as an outpatient. Previous BLE Dopplers 02/2021 - neg for DVT. VQ scan this admission - low prob for PE. Change Coreg to Lopressor 50mg BID. May titrate up as BP permits. Recommend discontinuing Hydralazine given persistent tachycardia. Will instead add Amlodipine 10mg daily. Plan for Lexiscan stress MPI in AM. NPO after midnight. Ultimately plan for outpatient referral to Structural Heart Team for mgmt of valvulopathy. Pt seen in conjunction with Dr. Mcadams, who agrees with the assessment and plan of care. - Patient Problems (1) Chest pain Current Visit: Yes Status: Acute (2) Paroxysmal SVT (supraventricular tachycardia) Current Visit: Yes Status: Acute (3) Accelerated hypertension Current Visit: Yes Status: Acute (4) Severe mitral regurgitation Current Visit: Yes Status: Chronic (5) ESRD on hemodialysis Current Visit: Yes Status: Chronic (6) Anemia Current Visit: Yes Status: Acute (7) Elevated d-dimer Current Visit: Yes Status: Acute
[2021-05-02] MEDS: METOPROLOL TARTRATE 50 MG TAB PO SCH (21:45)
[2021-05-02] MEDS: amLODIPine 10 MG TAB PO SCH (21:46)
[2021-05-02] MEDS ORDERED: carvediloL 25 MG TAB PO SCH (22:00)
[2021-05-03 02:01] LABS: Chol/HDL Ratio 1.87 %
[2021-05-03] MEDS ORDERED: REGADENOSON 0.4 MG/5 ML INJ IV ONE (06:48)
[2021-05-03] MEDS: CALCITRIOL 0.25 MCG CAP PO SCH (10:29)
[2021-05-03] MEDS: oxyCODONE /ACETAMINOPHEN 5-325MG TAB PO PRN (10:29)
[2021-05-03] MEDS: METOPROLOL TARTRATE 50 MG TAB PO SCH (10:30)
[2021-05-03] MEDS: amLODIPine 10 MG TAB PO SCH (10:30)
[2021-05-03] MEDS: FAMOTIDINE 10 MG TAB PO SCH (10:30)
[2021-05-03] MEDS: diphenhydrAMINE 25 MG CAP PO PRN (10:30)
[2021-05-03] MEDS: CALCIUM CARBONATE 1250 MG TAB PO SCH (10:30)
--- NOTE | 2021-05-03 12:13 | Event Note ---
Date: 05/03/21 attempted to see patient earlier today but she was off the floor for stress test. Will follow up tomorrow.
--- NOTE | 2021-05-03 12:57 | Progress Note ---
Assessment and Plan Chest pain Paroxysmal SVT (supraventricular tachycardia) Accelerated hypertension Severe mitral regurgitation * Patient has no complaint of chest pain. Chest pain resolved * Echo 03/11/2021 - EF 50-55%, mild-mod LVH, LA mildly dilated, mild AR, severe MR, no evidence of MS, mod TR, mild pulm HTN w/RVSP 40-45mmHg, mild IA. * Continue Metoprolol 50mg PO BID * Repeat EKG shows sinus tachy 106 with LVH and left atrial enlargement * Lexiscan stress MPI(05/03/2021)-negative for myocardial ischemia with no significant arrhythmia ESRD on hemodialysis * Nephrology following Patient had a negative stress test. Patient may need an event monitor as an outpatient. From a cardiac standpoint patient is stable and ok for discharge. Patient may follow up with Dr. Mcadams, [facility], 1-2 weeks after discharge. Patient seen in conjunction with Dr. Mcadams who agrees with this plan of care. will see as needed - Patient Problems (1) Accelerated hypertension Current Visit: Yes Status: Acute (2) Anemia Current Visit: Yes Status: Acute (3) Elevated d-dimer Current Visit: Yes Status: Acute (4) Paroxysmal SVT (supraventricular tachycardia) Current Visit: Yes Status: Acute (5) ESRD on hemodialysis Current Visit: Yes Status: Chronic (6) Severe mitral regurgitation Current Visit: Yes Status: Chronic Subjective Date of service: 05/03/21 Principal diagnosis: Accelerated HTN, ESRD, SVT Interval history: Patient for lexiscan MPI stress this AM [place] sinus tach 104 with 5 beat run nonsustained vtach Objective Last Vital Signs Temp 98.3 F 05/03/21 03:56 Pulse 87 05/03/21 03:07 Resp 16 05/03/21 03:07 BP 153/88 05/03/21 08:48 Pulse Ox 100 05/03/21 08:00 - Physical Examination General: No Apparent Distress HEENT: Positive: EOMI, Normocephaly Neck: Positive: neck supple, trachea midline Cardiac: Positive: Reg Rate and Rhythm Lungs: Positive: Normal Breath Sounds Neuro: Positive: Grossly Intact Abdomen: Positive: Soft. Negative: Tender Skin: Negative: Rash Musculoskeletal: No Pain Extremities: Present: lower extr. pulses, edema - Labs and Meds Lipids 09/06/21 Range/Units 23:42 Triglycerides 92 (2-149) mg/dL Cholesterol 150 (50-199) mg/dL HDL Cholesterol 80 H (40-59) mg/dL Cholesterol/HDL Ratio 1.87 % Comprehensive Metabolic Panel 05/02/21 Range/Units 16:20 Sodium 137 (137-145) mmol/L Potassium 3.0 L D (3.6-5.0) mmol/L Chloride 99.3 (98-107) mmol/L Carbon Dioxide 29 (22-30) mmol/L BUN 9 (7-17) mg/dL Creatinine 3.6 H (0.6-1.2) mg/dL Glucose 116 H (65-100) mg/dL Calcium 9.0 (8.4-10.2) mg/dL - Imaging and Cardiology EKG: report reviewed, image reviewed Pharmacologic stress test: report reviewed Echo: report reviewed (03/11/2021 - EF 50-55%, mild-mod LVH, LA mildly dilated, mild AR, severe MR, no evidence of MS, mod TR, mild pulm HTN w/RVSP 40-45mmHg, mild IA) - Telemetry EKG Rhythm: Sinus Tachycardia - EKG Sinus rhythms and dysrhythmias: sinus tachycardia Chamber hypertrophy or enlargement: left atrial enlargement, left ventricular hypertro
--- NOTE | 2021-05-03 15:09 | Discharge Summary ---
Providers - Providers Date of Admission: 04/30/21 16:42 Date of discharge: 05/03/21 Attending physician: RACHEAL SHIN 04/30/21 15:19 Consult to Physician [CONS] Stat Comment: Consulting Provider: YURI LO Physician Instructions: Reason For Exam: End-stage renal disease, needing dialysis 05/02/21 15:28 Consult to Physician [CONS] Routine Comment: Consulting Provider: JUNE SKINNER Physician Instructions: Reason For Exam: SVT Primary care physician: [employer] Hospitalization Condition: Stable Hospital course: Patient is 35 YO Female with ESRD on HD(M,W,F), HTN presented to ED for evaluation. Patient states that she has experienced shortness of breath over the past 1 day. Patient acknowledges missed dialysis due to lack of transportation. Patient acknowledges chest discomfort. The patient was seen and evaluated in the emergency department. Patient found to have end-stage renal disease complicated by fluid overload due to missed dialysis. Patient placed in observation status admitted to medical floor. Nephrology team consulted in ED for urgent dialysis. She was admitted, had dialysis done. Patient had chest pain and stress test done on 05/03/21 was negative. Her BP was very elevated was treated with labetalol, Hydralazine. During stay she had an episode of SVT so was treated with Adenosine iv push. She improved, BP stabilized and was discharged home 05/03/21 ESRD on hemodialysis. Hypertensive urgency Volume overload. SVT Uremia. Medical noncompliance. Chest pain due to GERD 05/01/2021. Nephrology to place patient on MWF HD schedule. Case management consultation to assist patient as she is struggling with transportation to her dialysis facility. She lives in [place], and will work [facility] as she is currently living with her aunt. Nephrology added hydralazine to BP regimen. Nephrology counseled the patient on importance of medical compliance. 05/02/2021. Patient will likely have hemodialysis today. Await case management arrangements regarding outpatient hemodialysis and barriers regarding transportation. Increase hydralazine to 100 mg p.o. 3 times daily. 05/03/21 BP stabilized. She is stable to discharge home. (1) End stage renal disease Current Visit: Yes Status: Acute Plan to address problem: Strict I's/O, monitor fluid balance, nephrology team consulted, dialysis as per renal team, avoid nephrotoxic agents. (2) Hypertension Current Visit: Yes Status: Acute Qualifiers: Hypertension type: primary hypertension Qualified Code(s): I10 - Essential (primary) hypertension Plan to address problem: Monitor blood pressure every shift, continue medical management. (3) Volume overload Current Visit: Yes Status: Acute Plan to address problem: Dialysis as per renal team. Patient counseled regarding missed dialysis. Patient states she will attempt to be more compliant in the future. Strict I's/O, monitor urine output every shift, afterload reduction, dialysis as per renal team. (4) DVT prophylaxis Current Visit: Yes Status: Acute Plan to address problem: SCD to bilateral lower extremities while in bed, patient is ambulatory Disposition: 01 HOME / SELF CARE / HOMELESS Final Discharge Diagnosis (Prints w/discharge instructions): 1.Chest pain due to GERD. 2.Supraventricular tachycardia. 3.ESRD on hemodialysis - Discharge Diagnoses (1) Acute chest pain Status: Acute Comment: due to GERD (2) Hypertension Status: Acute Qualifiers: Hypertension type: primary hypertension Qualified Code(s): I10 - Essential (primary) hypertension (3) Hypertensive emergency Status: Acute (4) Volume overload Status: Acute (5) ESRD on hemodialysis Status: Chronic (6) End stage renal disease Status: Chronic (7) Severe mitral regurgitation Status: Chronic (8) Paroxysmal SVT (supraventricular tachycardia) Status: Acute Core Measure Documentation - Palliative Care Palliative Care/ Comfort Measures: Not Applicable - Core Measures Any of the following diagnoses?: none Exam - Constitutional Vitals: Temp Pulse Resp BP Pulse Ox 98.3 F 87 16 153/88 100 05/03/21 03:56 05/03/21 03:07 05/03/21 03:07 05/03/21 08:48 05/03/21 08:00 Plan Activity: other (No strenous activity until cleared by cardiology) Diet: low fat, low cholesterol, low salt, renal Plan of Treatment: 1.Follow up with PCP in 1 week. 2.Follow up with Dr. Mcadams, cardiology in 1-2 weeks 3.Continue routine hemodialysis as scheduled Follow up with: PRIMARY CARE, [Primary Care Provider] - 3-5 Days Prescriptions: amLODIPine 10 mg PO QDAY #30 tablet Metoprolol [Lopressor TAB] 50 mg PO BID #60 tablet
[2021-05-03 16:24] VITALS: BP 151/96
[2021-05-04] MEDS ORDERED: ERGOCALCIFEROL (VIT D2) 50,000 UNIT CAP PO SCH (10:00)
--- NOTE | 2021-05-04 10:49 | Electrocardiograph Report ---
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
== END 2021-05-03 18:03 | disposition home or self-care (01) ==
LOC: ED 10:33 → 3A 16:42 → 4A 05-02 01:01
PROVIDERS: ADMIT Internal Medicine; ATTEND Internal Medicine
DX: E87.70 Fluid overload, unspecified (principal); I16.1 Hypertensive emergency; I12.0 Hypertensive chronic kidney disease with stage 5 chronic kidney disease or end stage renal disease; N18.6 End stage renal disease; I34.0 Nonrheumatic mitral (valve) insufficiency; D64.9 Anemia, unspecified; I47.1 Supraventricular tachycardia; R77.8 Other specified abnormalities of plasma proteins; R07.89 Other chest pain; Z99.2 Dependence on renal dialysis; Z91.14 Patient's other noncompliance with medication regimen; Z79.899 Other long term (current) drug therapy; Z98.890 Other specified postprocedural states
CPT/HCPCS: 36415; 71046; 78452; 78580; 80048; 80061; 80074; 80076; 82962; 83735; 83880; 84484; 85027; 85379; 85610; 85730; 93005; 93017; 94760; 96374; 96375; 96376; 99291; A9502; A9540; G0257; G0378; J0153; J0360; J1170; J2785

== ENCOUNTER 2021-05-21 11:37 | Inpatient (IN) | payer SELFPAY ==
--- NOTE | 2021-05-21 12:14 | Emergency Department Report ---
ED General Adult HPI - General Chief complaint: High BP Stated complaint: DIALYSIS/CHEST TIGHT/PAIN Time Seen by Provider: 05/21/21 11:57 Source: patient Mode of arrival: Wheelchair Limitations: No Limitations - History of Present Illness Initial comments: 35-year-old female, history of hypertension, ESRD, presents to ED for dialysis. Patient states she was started on dialysis in February 2021. Patient was last dialyzed at the beginning of this month, during hospitalization here at this facility. Since discharge on 05/03/2021, patient has not been dialyzed at all. Patient reports she moved to [facility]. She was told that she would be transferred to a [facility] nearby, however, they were found to be full. Patient is currently reporting some shortness of breath and orthopnea. Nephrology: Dr. Park -: week(s) (3) Quality: other (Painless) Consistency: constant Improves with: rest Worsens with: none, other (Exertion) Associated Symptoms: shortness of breath. denies: chest pain, cough, fever/chills - Related Data Previous Rx's Medication Instructions Recorded Last Taken Type Calcium Carbonate [Oscal 1250MG 1,250 mg PO QDAY #30 tablet 03/16/21 Unknown Rx TAB] Ergocalciferol [Vitamin D2] 50,000 unit PO We@1000 #30 capsule 03/16/21 Unknown Rx Famotidine [Pepcid] 10 mg PO BID #60 tablet 03/16/21 Unknown Rx calcitrioL [Rocaltrol] 0.25 mcg PO QDAY #30 capsule 03/16/21 Unknown Rx diphenhydrAMINE [Benadryl CAP] 25 mg PO Q6H PRN #30 capsule 03/16/21 Unknown Rx Metoprolol [Lopressor TAB] 50 mg PO BID #60 tablet 05/03/21 Unknown Rx amLODIPine 10 mg PO QDAY #30 tablet 05/03/21 Unknown Rx Allergies Allergy/AdvReac Type Severity Reaction Status Date / Time No Known Allergies Allergy Verified 04/30/21 10:42 ED Review of Systems ROS: Stated complaint: DIALYSIS/CHEST TIGHT/PAIN Other details as noted in HPI Comment: All other systems reviewed and negative Constitutional: denies: chills, fever Respiratory: orthopnea, shortness of breath. denies: cough Cardiovascular: denies: chest pain Gastrointestinal: denies: nausea, vomiting ED Past Medical Hx - Past Medical History Previous Medical History?: Yes Hx Hypertension: Yes Hx Congestive Heart Failure: No Hx Diabetes: No Hx Asthma: No Hx COPD: No Hx HIV: No Additional medical history: Stage 4 kidney disease/ Anemia, Perm cath for HD - Surgical History Past Surgical History?: No - Social History Smoking Status: Current Every Day Smoker Substance Use Type: Alcohol - Medications Home Medications: Home Medications Medication Instructions Recorded Confirmed Last Taken Type Calcium Carbonate [Oscal 1250MG 1,250 mg PO QDAY #30 tablet 03/16/21 05/02/21 Unknown Rx TAB] Ergocalciferol [Vitamin D2] 50,000 unit PO We@1000 #30 capsule 03/16/21 05/02/21 Unknown Rx Famotidine [Pepcid] 10 mg PO BID #60 tablet 03/16/21 05/02/21 Unknown Rx calcitrioL [Rocaltrol] 0.25 mcg PO QDAY #30 capsule 03/16/21 05/02/21 Unknown Rx diphenhydrAMINE [Benadryl CAP] 25 mg PO Q6H PRN #30 capsule 03/16/21 05/02/21 Unknown Rx Metoprolol [Lopressor TAB] 50 mg PO BID #60 tablet 05/03/21 Unknown Rx amLODIPine 10 mg PO QDAY #30 tablet 05/03/21 Unknown Rx ED Physical Exam - General Limitations: No Limitations General appearance: alert - Head Head exam: Present: atraumatic, normocephalic - Eye Eye exam: Present: normal appearance - ENT ENT exam: Present: mucous membranes moist - Neck Neck exam: Present: normal inspection - Respiratory Respiratory exam: Present: respiratory distress, rales, other (Tachypnea) - Cardiovascular Cardiovascular Exam: Present: normal rhythm, tachycardia - GI/Abdominal GI/Abdominal exam: Present: soft. Absent: distended, tenderness - Extremities Exam Extremities exam: Present: normal inspection - Neurological Exam Neurological exam: Present: alert, oriented X3 - Psychiatric Psychiatric exam: Present: normal affect, normal mood - Skin Skin exam: Present: warm, dry, intact, normal color ED Course Vital Signs 05/21/21 05/21/21 05/21/21 11:55 11:58 12:36 Temperature 98.0 F 98 F Pulse Rate 104 H 102 H Respiratory 24 24 20 Rate Blood Pressure 211/141 211/141 O2 Sat by Pulse 100 99 97 Oximetry O2 Sat by Pulse Oximetry [ Posterior Bilateral] 05/21/21 05/21/21 05/21/21 13:11 15:15 15:20 Temperature 96.9 F L Pulse Rate 98 H 102 H 102 H Respiratory 24 Rate Blood Pressure 206/141 203/129 205/127 O2 Sat by Pulse Oximetry O2 Sat by Pulse 96 Oximetry [ Posterior Bilateral] 05/21/21 05/21/21 05/21/21 15:30 15:45 16:00 Temperature Pulse Rate 98 H 100 H 92 H Respiratory Rate Blood Pressure 200/125 206/126 203/129 O2 Sat by Pulse Oximetry O2 Sat by Pulse Oximetry [ Posterior Bilateral] 05/21/21 05/21/21 05/21/21 16:15 16:30 16:45 Temperature Pulse Rate 92 H 85 81 Respiratory Rate Blood Pressure 202/126 209/124 208/120 O2 Sat by Pulse Oximetry O2 Sat by Pulse Oximetry [ Posterior Bilateral] 05/21/21 05/21/21 05/21/21 17:00 17:15 18:28 Temperature Pulse Rate 84 93 H 95 H Respiratory 18 Rate Blood Pressure 201/127 207/123 O2 Sat by Pulse 100 Oximetry O2 Sat by Pulse Oximetry [ Posterior Bilateral] 05/21/21 18:31 Temperature Pulse Rate 98 H Respiratory 36 H Rate Blood Pressure 207/123 O2 Sat by Pulse 100 Oximetry O2 Sat by Pulse Oximetry [ Posterior Bilateral] ED Medical Decision Making - Lab Data Result diagrams: 05/21/21 15:28 05/21/21 12:09 - EKG Data -: EKG Interpreted by Or EKG shows normal: sinus rhythm, axis, intervals, QRS complexes Rate: tachycardia (rate 105) - EKG Data Interpretation: no acute changes, LVH, other (peaked T waves present) - Radiology Data Radiology results: report reviewed, image reviewed - Medical Decision Making 35-year-old female presents to ED for dialysis. Patient has not been dialyzed in 3 weeks. She presents to the ED with tachypnea, although chest x-ray shows no evidence of pulmonary edema. Potassium is elevated at 4.9. Peaked T waves seen on EKG. Patient also hypertensive. She has been given hydralazine, insulin, D50, calcium gluconate, Kayexalate. I spoke with paintless dent repair technician who will place orders for emergent dialysis. Patient will be admitted to Dr. Watson, Hospitalist, for further management. - Differential Diagnosis Pulmonary edema, hyperkalemia, hypertensive emergency Critical Care Time: Yes Critical care time in (mins) excluding proc time.: 35 Critical care attestation.: If time is entered above; I have spent that time in minutes in the direct care of this critically ill patient, excluding procedure time. Critical Care Time: 35 min ED Disposition Clinical Impression: Hyperkalemia, ESRD needing dialysis, Hypertensive emergency Disposition: ADMITTED INPATIENT Is pt being admited?: Yes Condition: Stable Time of Disposition: 14:05
[2021-05-21] MEDS ORDERED: hydrALAZINE 20 MG/1 ML INJ IV ONE (12:27)
[2021-05-21 12:35] LABS: Basophils % (Auto) 0.8 % (0.0-1.8); Eosinophils # (Auto) 0.1 K/mm3 (0.0-0.4); Eosinophils % (Auto) 1.3 % (0.0-4.3); Hematocrit 25.8 % (30.3-42.9); Hemoglobin 8.6 gm/dl (10.1-14.3); Lymphocytes # (Auto) 0.8 K/mm3 (1.2-5.4); Lymphocytes % (Auto) 14.4 % (13.4-35.0); Mean Corpuscular HGB Conc 33 % (30-34); Mean Corpuscular Volume 88 fl (79-97); Monocytes # (Auto) 0.3 K/mm3 (0.0-0.8); Monocytes % (Auto) 5.6 % (0.0-7.3); Platelet Count 230 K/mm3 (140-440); Red Blood Count 2.92 M/mm3 (3.65-5.03)
--- NOTE | 2021-05-21 12:43 | XRay Report ---
CHEST 1 VIEW INDICATION / CLINICAL INFORMATION: SOB. COMPARISON: 04/30/2021 FINDINGS: SUPPORT DEVICES: Unchanged. HEART / MEDIASTINUM: Enlarged but stable LUNGS / PLEURA: No significant pulmonary or pleural abnormality. No pneumothorax. ADDITIONAL FINDINGS: No significant additional findings. IMPRESSION: 1. No acute findings. Signer Name: Tam Mina MD Signed: 05/21/2021 12:38 PM Workstation Name: [id number]
[2021-05-21 12:46] LABS: Red Cell Distribution Width 23.3 % (13.2-15.2)
[2021-05-21 12:51] LABS: Calcium 8.7 mg/dL (8.4-10.2)
[2021-05-21] MEDS ORDERED: DEXTROSE 50% IN WATER (25GM) 50 ML SYRINGE IV ONE (13:27)
[2021-05-21] MEDS ORDERED: INSULIN REGULAR, HUMAN 100 UNITS/1 ML IV ONE (13:27)
[2021-05-21] MEDS ORDERED: SODIUM POLYSTYRENE 15 GM/60 ML ORAL LIQD PO ONE (13:28)
[2021-05-21] MEDS ORDERED: SODIUM CHLORIDE 0.9% 100 ML IV PRN (13:48)
[2021-05-21] MEDS ORDERED: CALCIUM GLUCONATE 1,000 MG in SODIUM CHLORIDE 0.9% 100 ML IV ONE (14:00)
[2021-05-21 16:09] LABS: Basophils # (Auto) 0.1 K/mm3 (0.0-0.1); Basophils % (Auto) 0.8 % (0.0-1.8); Eosinophils % (Auto) 0.6 % (0.0-4.3); Hematocrit 25.1 % (30.3-42.9); Hemoglobin 8.3 gm/dl (10.1-14.3); Lymphocytes # (Auto) 0.8 K/mm3 (1.2-5.4); Lymphocytes % (Auto) 11.9 % (13.4-35.0); Mean Corpuscular HGB Conc 33 % (30-34); Mean Corpuscular Volume 89 fl (79-97); Monocytes # (Auto) 0.5 K/mm3 (0.0-0.8); Monocytes % (Auto) 7.4 % (0.0-7.3); Platelet Count 235 K/mm3 (140-440); Red Blood Count 2.83 M/mm3 (3.65-5.03)
[2021-05-21 16:25] LABS: Red Cell Distribution Width 23.9 % (13.2-15.2)
[2021-05-21] MEDS: amLODIPine 10 MG TAB PO SCH (20:23)
[2021-05-21] MEDS: BUTALB/ACETAMINOPHEN/CAFFEINE TAB PO PRN (20:24)
[2021-05-21] MEDS ORDERED: METOCLOPRAMIDE 10 MG/2 ML INJ IV PRN ×2 (20:39→20:56)
[2021-05-21] MEDS ORDERED: ONDANSETRON 4 MG/2 ML INJ IV PRN (20:39)
[2021-05-21] MEDS ORDERED: ACETAMINOPHEN 325 MG TAB PO PRN (20:39)
[2021-05-21] MEDS: CALCIUM CARBONATE 1250 MG TAB PO SCH (20:44)
[2021-05-21] MEDS: CALCITRIOL 0.25 MCG CAP PO SCH (20:44)
[2021-05-21] MEDS: hydrALAZINE 20 MG/1 ML INJ IV SCH (21:11)
[2021-05-21] MEDS: VALSARTAN 160MG TAB PO SCH (21:23)
[2021-05-21] MEDS: FAMOTIDINE 10 MG TAB PO SCH (23:37)
[2021-05-21] MEDS: METOPROLOL TARTRATE 50 MG TAB PO SCH (23:37)
[2021-05-22] MEDS: hydrALAZINE 20 MG/1 ML INJ IV SCH ×8 (00:35→21:27)
[2021-05-22] MEDS: MORPHINE 2 MG/1 ML INJ IV PRN ×2 (00:37→13:17)
[2021-05-22 05:50] LABS: Basophils % (Auto) 0.7 % (0.0-1.8); Eosinophils # (Auto) 0.1 K/mm3 (0.0-0.4); Eosinophils % (Auto) 2.3 % (0.0-4.3); Hematocrit 24.8 % (30.3-42.9); Hemoglobin 8.4 gm/dl (10.1-14.3); Lymphocytes % (Auto) 17.2 % (13.4-35.0); Mean Corpuscular HGB Conc 34 % (30-34); Mean Corpuscular Volume 88 fl (79-97); Monocytes # (Auto) 0.4 K/mm3 (0.0-0.8); Monocytes % (Auto) 7.6 % (0.0-7.3); Platelet Count 209 K/mm3 (140-440); Red Blood Count 2.82 M/mm3 (3.65-5.03)
[2021-05-22 05:56] LABS: Red Cell Distribution Width 22.9 % (13.2-15.2)
[2021-05-22 06:12] LABS: Albumin 3.8 g/dL (3.9-5); Calcium 8.9 mg/dL (8.4-10.2)
--- NOTE | 2021-05-22 08:05 | History and Physical Report ---
History of Present Illness Date of examination: 05/21/21 Date of admission: 05/21/21 14:55 Chief complaint: Shortness of breath for 1 week History of present illness: 35-year-old female with history of hypertension and end-stage renal disease started on hemodialysis in February 2021. Patient was discharged on 05/03/2021 and her hemodialysis chair was not arranged. Patient did not get hemodialysis for this last 17 days. Patient is due to get hemodialysis with replacement center and case management is working on arrangements. Patient is noncompliant. Noncompliant with her blood pressure medications. Orthopnea present. Shortness of breath on minimal exertion present. No fever or chills. No exposure to Covid. - Past Medical History --Previous Medical History?: Yes --Hypertension: Yes --Additional medical history: Stage 4 kidney disease/ Anemia, Perm cath for HD - Surgical History --Permacath - Social History --Smoking Status: Current Every Day Smoker --Substance Use Type: Alcohol -Family history --Htn Review of Systems ROS: Constitutional no weight loss or weight gain no fever or chills HEENT no sore throat no post nasal drip no diplopia Neck no neck stiffness no lymph gland enlargement Chest and lungs shortness of breath present and orthopnea CVS orthopnea present GI no nausea no vomiting no diarrhea Genitourinary system no dysuria no flank pain Musculoskeletal system no muscle pains no joint pains [employer] no syncope no seizures Skin no rash no itching Psychiatric no depression no homicidal or suicidal tendencies Hematologic no lymphedema or bruising Endocrine no polydipsia no polyuria no cold intolerance no heat intolerance Medications and Allergies Allergies Allergy/AdvReac Type Severity Reaction Status Date / Time No Known Allergies Allergy Verified 04/30/21 10:42 Home Medications Medication Instructions Recorded Confirmed Last Taken Type Calcium Carbonate [Oscal 1250MG 1,250 mg PO QDAY #30 tablet 03/16/21 05/02/21 Unknown Rx TAB] Ergocalciferol [Vitamin D2] 50,000 unit PO We@1000 #30 capsule 03/16/21 05/02/21 Unknown Rx Famotidine [Pepcid] 10 mg PO BID #60 tablet 03/16/21 05/02/21 Unknown Rx calcitrioL [Rocaltrol] 0.25 mcg PO QDAY #30 capsule 03/16/21 05/02/21 Unknown Rx diphenhydrAMINE [Benadryl CAP] 25 mg PO Q6H PRN #30 capsule 03/16/21 05/02/21 Unknown Rx Metoprolol [Lopressor TAB] 50 mg PO BID #60 tablet 05/03/21 Unknown Rx amLODIPine 10 mg PO QDAY #30 tablet 05/03/21 Unknown Rx Active Meds: Active Medications Acetaminophen (Acetaminophen 325 Mg Tab) 650 mg PO Q4H PRN PRN Reason: Pain MILD(1-3)/Fever >100.5/WARD Acetaminophen/Butalbital/Caffeine (Butalb/Acetaminophen/Caffeine Tab) 1 tab PO Q4H PRN PRN Reason: Headache Last Admin: 05/21/21 20:24 Dose: 1 tab Documented by: Amlodipine Besylate (Amlodipine 10 Mg Tab) 10 mg PO QDAY [facility] Last Admin: 05/21/21 20:23 Dose: 10 mg Documented by: Calcitriol (Calcitriol 0.25 Mcg Cap) 0.25 mcg PO QDAY [facility] Last Admin: 05/21/21 20:44 Dose: 0.25 mcg Documented by: Calcium Carbonate/Glycine (Calcium Carbonate 1250 Mg Tab) 1,250 mg PO QDAY [facility] Last Admin: 05/21/21 20:44 Dose: 1,250 mg Documented by: Diphenhydramine HCl (Diphenhydramine 25 Mg Cap) 25 mg PO Q6H PRN PRN Reason: Itching Famotidine (Famotidine 10 Mg Tab) 10 mg PO BID [facility] Last Admin: 05/21/21 23:37 Dose: 10 mg Documented by: Hydralazine HCl (Hydralazine 20 Mg/1 Ml Inj) 10 mg IV Q3H [facility] Last Admin: 05/22/21 06:05 Dose: 10 mg Documented by: Sodium Chloride (Nacl 0.9%) 100 mls @ 999 mls/hr IV KYREE PRN PRN Reason: Hypotension Metoclopramide HCl (Metoclopramide 10 Mg/2 Ml Inj) 2.5 mg IV Q6H PRN PRN Reason: Nausea And Vomiting Metoprolol Tartrate (Metoprolol Tartrate 50 Mg Tab) 50 mg PO BID [facility] Last Admin: 05/21/21 23:37 Dose: 50 mg Documented by: Morphine Sulfate (Morphine 2 Mg/1 Ml Inj) 2 mg IV Q4H PRN PRN Reason: Pain, Moderate (4-6) Last Admin: 05/22/21 00:37 Dose: 2 mg Documented by: Ondansetron HCl (Ondansetron 4 Mg/2 Ml Inj) 4 mg IV Q8H PRN PRN Reason: Nausea And Vomiting Sodium Chloride (Sodium Chloride 0.9% 10 Ml Flush Syringe) 10 ml IV BID [facility] Last Admin: 05/21/21 23:38 Dose: 10 ml Documented by: Sodium Chloride (Sodium Chloride 0.9% 10 Ml Flush Syringe) 10 ml IV PRN PRN PRN Reason: LINE FLUSH Valsartan (Valsartan 160mg Tab) 160 mg PO Q12HR [facility] Last Admin: 05/21/21 21:23 Dose: 160 mg Documented by: Exam - Constitutional Vitals: Temp Pulse Resp BP Pulse Ox 98.2 F 91 H 19 211/141 100 05/21/21 18:15 05/22/21 06:05 05/22/21 04:01 05/22/21 06:05 05/22/21 04:01 General appearance: Present: mild distress, well-nourished - EENT Eyes: Present: PERRL ENT: hearing intact, clear oral mucosa - Neck Neck: Present: supple, normal ROM - Respiratory Respiratory effort: normal Respiratory: bilateral: CTA - Cardiovascular Heart rate: 78 Rhythm: regular Heart Sounds: Present: S1 & S2. Absent: rub, click - Extremities Extremities: pulses symmetrical, No edema Peripheral Pulses: within normal limits - Abdominal General gastrointestinal: Present: soft, non-tender, non-distended, normal bowel sounds Female genitourinary: Present: normal - Integumentary Integumentary: Present: clear, warm, dry - Musculoskeletal Musculoskeletal: gait normal, strength equal bilaterally - Psychiatric Psychiatric: appropriate mood/affect, intact judgment & insight - Neurologic Neurologic: CNII-XII intact, moves all extremities - Allied Health Allied health notes reviewed: nursing, case management HEART Score - HEART Score History: Moderately suspicious Age: < 45 Risk factors: 1-2 risk factors - Critical Actions Critical Actions: 4-6 pts:12-16.6% risk of adverse cardiac event. Should be admitted Results - Labs CBC & Chem 7: 05/22/21 05:36 05/22/21 05:36 Labs: Laboratory Last Values WBC 5.7 K/mm3 (4.5-11.0) 05/22/21 05:36 RBC 2.82 M/mm3 (3.65-5.03) L 05/22/21 05:36 Hgb 8.4 gm/dl (10.1-14.3) L 05/22/21 05:36 Hct 24.8 % (30.3-42.9) L 05/22/21 05:36 MCV 88 fl (79-97) 05/22/21 05:36 MCH 30 pg (28-32) 05/22/21 05:36 MCHC 34 % (30-34) 05/22/21 05:36 RDW 22.9 % (13.2-15.2) H 05/22/21 05:36 Plt Count 209 K/mm3 (140-440) 05/22/21 05:36 Lymph % (Auto) 17.2 % (13.4-35.0) 05/22/21 05:36 [place] % (Auto) 7.6 % (0.0-7.3) H 05/22/21 05:36 Eos % (Auto) 2.3 % (0.0-4.3) 05/22/21 05:36 Baso % (Auto) 0.7 % (0.0-1.8) 05/22/21 05:36 Lymph # (Auto) 1.0 K/mm3 (1.2-5.4) L 05/22/21 05:36 [place] # (Auto) 0.4 K/mm3 (0.0-0.8) 05/22/21 05:36 Eos # (Auto) 0.1 K/mm3 (0.0-0.4) 05/22/21 05:36 Baso # (Auto) 0.0 K/mm3 (0.0-0.1) 05/22/21 05:36 Seg Neutrophils % 72.2 % (40.0-70.0) H 05/22/21 05:36 Seg Neutrophils # 4.1 K/mm3 (1.8-7.7) 05/22/21 05:36 Sodium 137 mmol/L (137-145) 05/22/21 05:36 Potassium 3.9 mmol/L (3.6-5.0) D 05/22/21 05:36 Chloride 96.5 mmol/L (98-107) L 05/22/21 05:36 Carbon Dioxide 23 mmol/L (22-30) D 05/22/21 05:36 Anion Gap 21 mmol/L 05/22/21 05:36 BUN 52 mg/dL (7-17) H 05/22/21 05:36 Creatinine 9.8 mg/dL (0.6-1.2) H 05/22/21 05:36 Estimated GFR 5 ml/min 05/22/21 05:36 BUN/Creatinine Ratio 5 % 05/22/21 05:36 Glucose 95 mg/dL (65-100) 05/22/21 05:36 Calcium 8.9 mg/dL (8.4-10.2) 05/22/21 05:36 Total Bilirubin 0.90 mg/dL (0.1-1.2) 05/22/21 05:36 AST 25 units/L (5-40) 05/22/21 05:36 ALT 13 units/L (7-56) 05/22/21 05:36 Alkaline Phosphatase 141 units/L (35-129) H 05/22/21 05:36 Total Protein 7.2 g/dL (6.3-8.2) 05/22/21 05:36 Albumin 3.8 g/dL (3.9-5) L 05/22/21 05:36 Albumin/Globulin Ratio 1.1 % 05/22/21 05:36 HCG, Qual Negative (Negative) 05/21/21 12:18 - Imaging and Cardiology EKG: report reviewed (Normal sinus rhythm LVH by voltage criteria) Chest x-ray: report reviewed Imaging and Cardiology: Chest x-ray no acute findings Assessment and Plan Advance Directives: Yes - Patient Problems (1) Acute exacerbation of CHF (congestive heart failure) Current Visit: Yes Status: Acute Qualifiers: Heart failure type: combined systolic and diastolic Qualified Code(s): I50.43 - Acute on chronic combined systolic (congestive) and diastolic (congestive) heart failure Plan to address problem: Secondary to volume overload Check echocardiogram (2) Volume overload Current Visit: Yes Status: Acute Plan to address problem: Needs emergent hemodialysis for increased ultrafiltration (3) Hypertensive emergency Current Visit: Yes Status: Acute Plan to address problem: Patient is noncompliant Patient started on valsartan 1 12 in addition to her metoprolol and amlodipine IV hydralazine 10 mg every 3 hours as needed Emergent hemodialysis for removal of toxins which may improve her blood pressure (4) ESRD needing dialysis Current Visit: Yes Status: Acute Plan to address problem: Emergent hemodialysis today Nephrology consulted (5) Anemia Current Visit: Yes Status: Chronic Qualifiers: Anemia type: due to chronic kidney disease Chronic kidney disease stage: on chronic dialysis Qualified Code(s): N18.6 - End stage renal disease; D63.1 - Anemia in chronic kidney disease; Z99.2 - Dependence on renal dialysis Plan to address problem: Secondary to chronic kidney disease (6) Hyponatremia Current Visit: Yes Status: Acute Plan to address problem: Should correct with correction of volume overload and increased ultrafiltration (7) Hyperkalemia Current Visit: Yes Status: Acute Plan to address problem: Kayexalate calcium gluconate and bicarb given in the emergency room (8) DVT prophylaxis Current Visit: Yes Status: Acute Plan to address problem: On heparin and GI prophylaxis
[2021-05-22] MEDS: METOPROLOL TARTRATE 50 MG TAB PO SCH ×2 (12:16→21:28)
[2021-05-22] MEDS: amLODIPine 10 MG TAB PO SCH (12:17)
[2021-05-22] MEDS: CALCITRIOL 0.25 MCG CAP PO SCH (13:09)
[2021-05-22] MEDS: FAMOTIDINE 10 MG TAB PO SCH ×2 (13:09→21:28)
[2021-05-22] MEDS: CALCIUM CARBONATE 1250 MG TAB PO SCH (13:09)
[2021-05-22] MEDS: VALSARTAN 160MG TAB PO SCH ×2 (13:15→21:28)
--- NOTE | 2021-05-22 16:34 | Consultation ---
History of Present Illness - Reason for Consult Consult date: 05/22/21 end stage renal disease Requesting physician: MIKE GUZMAN - History of Present Illness 35-year-old lady with a history of hypertension complicated by end-stage renal disease who started dialysis in February 2021. Patient has been poorly compliant with dialysis treatments usually normal social issues. Her car was repossessed and she lost her apartment here in [place] and so she moved in with her aunt in [facility]. She was no longer able to get to the dialysis clinic in [facility] as her aunt is a tanker truck driver and is gone all week and only comes home on the weekends. Patient was just hospitalized here for a May 02, 2021 and received dialysis then. She has not received any more treatment since then as she was unable to go to the dialysis center. Attempts were made t o set her up at [facility] where she was told the clinic was full. Patient has been having shortness of breath and orthopnea for at least a week now. She also notices some lower extremity swelling. She has vague chest discomfort radiating to her back. She also admits to occasional nausea and vomiting especially yesterday. She has been having diarrhea with loose bowel movements about 6 times a day for at least a week also. No fever or chills. No abdominal pain. Has symptoms kept worsening and especially on account of the shortness of breath, she presented to the hospital for further evaluation. On presentation her blood pressure was quite high at 211/141 mmHg. BUN/creatinine were quite elevated at 104/15.9 and a potassium was high at 5.9 mmol/L. I was consulted to assist with providing dialysis and managing her fluid and electrolyte abnormalities. 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 Lost her job due to her missing work due to her medical problems and was doing "[employer]" unti She got on dialysis she has not been able to work since then). denies: smoking, alcohol abuse (she drank alcohol socially past. Quit years ago), prescription drug abuse, IV drug use Family history: diabetes (Father has type 2 diabetes mellitus.), hypertension (Mother has hypertension and heart disease), other (Her sister was born with a hole in her heart. Had surgery.) Medications and Allergies Allergies Allergy/AdvReac Type Severity Reaction Status Date / Time No Known Allergies Allergy Verified 04/30/21 10:42 Home Medications Medication Instructions Recorded Confirmed Last Taken Type Calcium Carbonate [Oscal 1250MG 1,250 mg PO QDAY #30 tablet 03/16/21 05/02/21 Unknown Rx TAB] Ergocalciferol [Vitamin D2] 50,000 unit PO We@1000 #30 capsule 03/16/21 05/02/21 Unknown Rx Famotidine [Pepcid] 10 mg PO BID #60 tablet 03/16/21 05/02/21 Unknown Rx calcitrioL [Rocaltrol] 0.25 mcg PO QDAY #30 capsule 03/16/21 05/02/21 Unknown Rx diphenhydrAMINE [Benadryl CAP] 25 mg PO Q6H PRN #30 capsule 03/16/21 05/02/21 Unknown Rx Metoprolol [Lopressor TAB] 50 mg PO BID #60 tablet 05/03/21 Unknown Rx amLODIPine 10 mg PO QDAY #30 tablet 05/03/21 Unknown Rx Active Meds: Active Medications Acetaminophen (Acetaminophen 325 Mg Tab) 650 mg PO Q4H PRN PRN Reason: Pain MILD(1-3)/Fever >100.5/WARD Acetaminophen/Butalbital/Caffeine (Butalb/Acetaminophen/Caffeine Tab) 1 tab PO Q4H PRN PRN Reason: Headache Last Admin: 05/21/21 20:24 Dose: 1 tab Documented by: Amlodipine Besylate (Amlodipine 10 Mg Tab) 10 mg PO QDAY [facility] Last Admin: 05/22/21 12:17 Dose: 10 mg Documented by: Calcitriol (Calcitriol 0.25 Mcg Cap) 0.25 mcg PO QDAY [facility] Last Admin: 05/22/21 13:09 Dose: 0.25 mcg Documented by: Calcium Carbonate/Glycine (Calcium Carbonate 1250 Mg Tab) 1,250 mg PO QDAY [facility] Last Admin: 05/22/21 13:09 Dose: 1,250 mg Documented by: Diphenhydramine HCl (Diphenhydramine 25 Mg Cap) 25 mg PO Q6H PRN PRN Reason: Itching Famotidine (Famotidine 10 Mg Tab) 10 mg PO BID [facility] Last Admin: 05/22/21 13:09 Dose: 10 mg Documented by: Hydralazine HCl (Hydralazine 20 Mg/1 Ml Inj) 10 mg IV Q3H [facility] Last Admin: 05/22/21 13:34 Dose: Not Given Documented by: Sodium Chloride (Nacl 0.9%) 100 mls @ 999 mls/hr IV KYREE PRN PRN Reason: Hypotension Metoclopramide HCl (Metoclopramide 10 Mg/2 Ml Inj) 2.5 mg IV Q6H PRN PRN Reason: Nausea And Vomiting Metoprolol Tartrate (Metoprolol Tartrate 50 Mg Tab) 50 mg PO BID [facility] Last Admin: 05/22/21 12:16 Dose: 50 mg Documented by: Morphine Sulfate (Morphine 2 Mg/1 Ml Inj) 2 mg IV Q4H PRN PRN Reason: Pain, Moderate (4-6) Last Admin: 05/22/21 13:17 Dose: 2 mg Documented by: Ondansetron HCl (Ondansetron 4 Mg/2 Ml Inj) 4 mg IV Q8H PRN PRN Reason: Nausea And Vomiting Sodium Chloride (Sodium Chloride 0.9% 10 Ml Flush Syringe) 10 ml IV BID [facility] Last Admin: 05/22/21 11:00 Dose: 10 ml Documented by: Sodium Chloride (Sodium Chloride 0.9% 10 Ml Flush Syringe) 10 ml IV PRN PRN PRN Reason: LINE FLUSH Valsartan (Valsartan 160mg Tab) 160 mg PO Q12HR [facility] Last Admin: 05/22/21 13:15 Dose: 160 mg Documented by: Review of Systems All systems: negative (Constitutional: no fever or chills. No anorexia or weight loss. HEENT: No sore throat or sinus drainage no hearing or vision impairment . Cardiovascular: No chest pain, shortness of breath, palpitations, admits to LE swelling or dizziness. Respiratory: Admits to cough which was nonproductive) Respiratory: no hemoptysis, no pain on inspiration Gastrointestinal: nausea, vomiting, diarrhea, no abdominal pain, no hematemesis, no coffee ground emesis Genitourinary Female: urinary frequency, no dysuria, no urgency Musculoskeletal: other (No joint pains or stiffness), no redness of joints Integumentary: no rash, no pruritis Neurological: numbness (Left leg numbness), headaches, no seizures Psychiatric: depression, no anxiety Endocrine: cold intolerance, no heat intolerance Hematologic/Lymphatic: easy bruising, no easy bleeding Exam - Vital Signs Vital signs: Vital Signs Temp Pulse Resp BP Pulse Ox 98.0 F 104 H 24 211/141 100 05/21/21 11:55 05/21/21 11:55 05/21/21 11:55 05/21/21 11:55 05/21/21 11:55 - Physical Exam Narrative exam: Young -[place] female in no acute distress HEENT: NCAT, pink oral mucous membrane Neck: Supple, no venous distention CVS: S1S2 RRR with no murmur, rub or gallop Chest: Clear to auscultation Abdomen: Protuberant, soft, nontender, no organomegaly, bowel sounds are present Extremities: No edema Skin warm and dry Genitourinary deferred Neuro: Awake, alert no focal deficits Results - Lab Results 05/22/21 05:36 05/22/21 05:36 Most recent lab results Calcium 8.9 mg/dL (8.4-10.2) 05/22/21 05:36 Assessment and Plan - Patient Problems (1) Hyperkalemia Current Visit: Yes Status: Acute Plan to address problem: Secondary to missed dialysis. Improved with hemodialysis (2) Hypertensive emergency Current Visit: Yes Status: Acute Plan to address problem: Elevated blood pressure probably volume related and due to noncompliance with medications. Resume antihypertensive medications. Hemodialysis again tomorrow for fluid removal. Follow-up blood pressure (3) Hyponatremia Current Visit: Yes Status: Acute Plan to address problem: Hypervolemic hyponatremia. Follow-up sodium with fluid removal on dialysis (4) Volume overload Current Visit: Yes Status: Acute Plan to address problem: Secondary to missed dialysis treatments. Fluid removal with dialysis (5) Anemia in chronic kidney disease (CKD) Current Visit: No Status: Chronic Plan to address problem: Given erythropoietin on dialysis and follow-up hemoglobin. (6) ESRD on hemodialysis Current Visit: No Status: Chronic Plan to address problem: Patient was emergently dialyzed yesterday. Hemodialysis again tomorrow. We will consult patient case manager to assist with placement at the dialysis clinic in [facility] Patient is also eligible for Medicare/Medicaid. irrigation manager to assist with applications if not done already.
[2021-05-23] MEDS: hydrALAZINE 20 MG/1 ML INJ IV SCH ×8 (00:58→21:04)
[2021-05-23] MEDS: MORPHINE 2 MG/1 ML INJ IV PRN ×2 (00:59→14:31)
[2021-05-23] MEDS: diphenhydrAMINE 25 MG CAP PO PRN (05:17)
--- NOTE | 2021-05-23 05:49 | Progress Note ---
Assessment and Plan - Patient Problems (1) Acute exacerbation of CHF (congestive heart failure) Current Visit: Yes Status: Acute Qualifiers: Heart failure type: combined systolic and diastolic Qualified Code(s): I50.43 - Acute on chronic combined systolic (congestive) and diastolic (congestive) heart failure Plan to address problem: Secondary to volume overload Check echocardiogram (2) Volume overload Current Visit: Yes Status: Acute Plan to address problem: Needs emergent hemodialysis for increased ultrafiltration (3) Hypertensive emergency Current Visit: Yes Status: Chronic Plan to address problem: Patient is noncompliant Patient started on valsartan 1 6312 in addition to her metoprolol and amlodipine IV hydralazine 10 mg every 3 hours as needed Emergent hemodialysis for removal of toxins which may improve her blood pressure (4) ESRD needing dialysis Current Visit: Yes Status: Acute Plan to address problem: Emergent hemodialysis today Nephrology consulted (5) Anemia Current Visit: Yes Status: Chronic Qualifiers: Anemia type: due to chronic kidney disease Chronic kidney disease stage: on chronic dialysis Qualified Code(s): N18.6 - End stage renal disease; D63.1 - Anemia in chronic kidney disease; Z99.2 - Dependence on renal dialysis Plan to address problem: Secondary to chronic kidney disease (6) Hyponatremia Current Visit: Yes Status: Acute Plan to address problem: Should correct with correction of volume overload and increased ultrafiltration (7) Hyperkalemia Current Visit: Yes Status: Acute Plan to address problem: Kayexalate calcium gluconate and bicarb given in the emergency room (8) DVT prophylaxis Current Visit: Yes Status: Acute Plan to address problem: On heparin and GI prophylaxis Subjective Date of service: 05/22/21 Principal diagnosis: Hypertensive emergency and end-stage renal disease on hemodialysis Interval history: History of present illness: 35-year-old female with history of hypertension and end-stage renal disease started on hemodialysis in February 2021. Patient was discharged on 05/03/2021 and her hemodialysis chair was not arranged. Patient did not get hemodialysis for this last 17 days. Patient is due to get hemodialysis with replacement center and case management is working on arrangements. Patient is noncompliant. Noncompliant with her blood pressure medications. Orthopnea present. Shortness of breath on minimal exertion present. No fever or chills. No exposure to Covid. 05/22/2021 Blood pressure under control Symptomatically better After 1 dialysis session last night Objective - Constitutional Vitals: Vital Signs - 12hr 05/22/21 05/22/21 05/22/21 18:01 19:01 19:31 Pulse Rate 89 86 85 Pulse Rate [ From Monitor] Respiratory 16 21 17 Rate Blood Pressure 132/93 132/93 132/93 O2 Sat by Pulse 100 100 99 Oximetry 05/22/21 05/22/21 05/22/21 20:01 20:31 20:39 Pulse Rate 85 86 84 Pulse Rate [ From Monitor] Respiratory 18 21 21 Rate Blood Pressure 156/100 156/100 156/100 O2 Sat by Pulse 100 100 99 Oximetry 05/22/21 05/22/21 05/22/21 21:01 21:27 21:28 Pulse Rate 85 92 H 92 H Pulse Rate [ From Monitor] Respiratory 15 Rate Blood Pressure 156/100 167/104 167/104 O2 Sat by Pulse 99 Oximetry 05/22/21 05/22/21 05/22/21 21:31 22:01 22:31 Pulse Rate 85 90 80 Pulse Rate [ From Monitor] Respiratory 13 18 18 Rate Blood Pressure 156/100 163/97 163/97 O2 Sat by Pulse 100 98 98 Oximetry 05/22/21 05/22/21 05/23/21 23:01 23:31 00:01 Pulse Rate 72 74 73 Pulse Rate [ From Monitor] Respiratory 14 17 16 Rate Blood Pressure 163/97 163/97 154/99 O2 Sat by Pulse 99 99 100 Oximetry 05/23/21 05/23/21 05/23/21 00:31 00:58 00:59 Pulse Rate 74 75 Pulse Rate [ From Monitor] Respiratory 17 16 Rate Blood Pressure 154/99 154/99 O2 Sat by Pulse 99 Oximetry 05/23/21 05/23/21 05/23/21 01:07 01:31 02:00 Pulse Rate 86 Pulse Rate [ 80 From Monitor] Respiratory 10 L Rate Blood Pressure 154/99 169/114 O2 Sat by Pulse 100 100 100 Oximetry 05/23/21 05/23/21 05/23/21 02:01 02:31 03:01 Pulse Rate 80 79 88 Pulse Rate [ From Monitor] Respiratory 11 L 8 L 10 L Rate Blood Pressure 166/105 166/105 163/97 O2 Sat by Pulse 100 100 99 Oximetry 05/23/21 05/23/21 05/23/21 03:31 04:01 04:31 Pulse Rate 81 81 81 Pulse Rate [ From Monitor] Respiratory 15 16 16 Rate Blood Pressure 163/97 168/93 163/97 O2 Sat by Pulse 100 98 98 Oximetry 05/23/21 05/23/21 05:11 05:20 Pulse Rate 93 H 86 Pulse Rate [ From Monitor] Respiratory Rate Blood Pressure 164/93 O2 Sat by Pulse Oximetry General appearance: Present: no acute distress, well-nourished - EENT Eyes: PERRL, EOM intact ENT: hearing intact, clear oral mucosa Ears: bilateral: normal - Neck Neck: supple, normal ROM - Respiratory Respiratory effort: normal Respiratory: bilateral: CTA - Breasts Breasts: normal - Cardiovascular Heart rate: 78 Rhythm: regular Heart Sounds: Present: S1 & S2. Absent: gallop, rub Extremities: pulses intact, No edema, normal color, Full ROM - Gastrointestinal General gastrointestinal: Present: soft, non-tender, non-distended, normal bowel sounds - Genitourinary Female genitourinary: normal - Integumentary Integumentary: clear, warm, dry - Musculoskeletal Musculoskeletal: 1, strength equal bilaterally - Neurologic Neurologic: moves all extremities - Psychiatric Psychiatric: memory intact, appropriate mood/affect, intact judgment & insight - Labs CBC & Chem 7: 05/22/21 05:36 05/22/21 05:36 Labs: Abnormal lab results 05/22/21 05/22/21 Range/Units 05:36 05:36 RBC 2.82 L (3.65-5.03) M/mm3 Hgb 8.4 L (10.1-14.3) gm/dl Hct 24.8 L (30.3-42.9) % RDW 22.9 H (13.2-15.2) % [place] % (Auto) 7.6 H (0.0-7.3) % Lymph # (Auto) 1.0 L (1.2-5.4) K/mm3 Seg Neutrophils % 72.2 H (40.0-70.0) % Chloride 96.5 L (98-107) mmol/L BUN 52 H (7-17) mg/dL Creatinine 9.8 H (0.6-1.2) mg/dL Alkaline Phosphatase 141 H (35-129) units/L Albumin 3.8 L (3.9-5) g/dL HEART Score - HEART Score Age: < 45 Risk factors: 1-2 risk factors - Critical Actions Critical Actions: 4-6 pts:12-16.6% risk of adverse cardiac event. Should be admitted
--- NOTE | 2021-05-23 10:37 | Electrocardiograph Report ---
[facility] Test Date: 2021-05-21 Test Time: 12:14:45 Pat Name: KIAH MURILLO Department: Room: A486 Gender: F Science Liaison: MARCUS SENAB: 1985 Requested By: KATIE GOMEZ Order Number: [id number] Reading MD: Houston Mcadams Measurements Intervals [place] Rate: 105 P: 71 TX: 156 QRS: 24 QRSD: 74 T: 81 QT: 345 QTc: 456 Interpretive Statements Sinus tachycardia Left atrial enlargement Probable left ventricular hypertrophy Compared to ECG 05/02/2021 15:22:01 Atrial abnormality now present Early repolarization no longer present Prolonged QT interval no longer present Electronically Signed On 05-23-2021 10:37:02 EDT by Houston Mcadams
--- NOTE | 2021-05-23 12:46 | Progress Note ---
Assessment and Plan - Patient Problems (1) Hyperkalemia Current Visit: Yes Status: Acute Plan to address problem: Will manage with hemodialysis. It has improved this morning. (2) Hypertensive emergency Current Visit: Yes Status: Chronic Plan to address problem: home blood pressure medicines restarted. Anticipate that with further adequate ultrafiltration during hemodialysis that blood pressures will continue to improve overall. (3) Volume overload Current Visit: Yes Status: Acute Plan to address problem: counseled on the importance of fluid restriction as well as sodium restriction. Also counseled on the importance of compliance with hemodialysis treatments. Pending further assistance from case management in regards to placement at this time as an outpatient. (4) ESRD needing dialysis Current Visit: Yes Status: Acute Plan to address problem: patient placed on a Sunday inpatient hemodialysis schedule. Second dialysis treatment today in order to help with further clearance and volume management. Hopeful that with continued ultrafiltration her blood pressures will also show adequate improvement. Pending further assistance from case management in regards to placement at an outpatient dialysis facility. Subjective Date of service: 05/23/21 Interval history: no acute changes overnight. Being dialyzed this afternoon. Pending further assistance with case management in regards to outpatient placement. Objective - Vital Signs Vital signs: Vital Signs - 12hr 05/23/21 05/23/21 05/23/21 00:58 00:59 01:07 Temperature Pulse Rate 75 Pulse Rate [ From Monitor] Pulse Rate [ Radial] Respiratory 16 Rate Blood Pressure 154/99 154/99 O2 Sat by Pulse 100 Oximetry O2 Sat by Pulse Oximetry [ Posterior Bilateral] 05/23/21 05/23/21 05/23/21 01:31 02:00 02:01 Temperature Pulse Rate 86 80 Pulse Rate [ 80 From Monitor] Pulse Rate [ Radial] Respiratory 10 L 11 L Rate Blood Pressure 169/114 166/105 O2 Sat by Pulse 100 100 100 Oximetry O2 Sat by Pulse Oximetry [ Posterior Bilateral] 05/23/21 05/23/21 05/23/21 02:31 03:01 03:31 Temperature Pulse Rate 79 88 81 Pulse Rate [ From Monitor] Pulse Rate [ Radial] Respiratory 8 L 10 L 15 Rate Blood Pressure 166/105 163/97 163/97 O2 Sat by Pulse 100 99 100 Oximetry O2 Sat by Pulse Oximetry [ Posterior Bilateral] 05/23/21 05/23/21 05/23/21 04:01 04:31 05:00 Temperature Pulse Rate 81 81 87 Pulse Rate [ From Monitor] Pulse Rate [ Radial] Respiratory 16 16 18 Rate Blood Pressure 168/93 163/97 164/93 O2 Sat by Pulse 98 98 99 Oximetry O2 Sat by Pulse Oximetry [ Posterior Bilateral] 05/23/21 05/23/21 05/23/21 05:11 05:20 05:30 Temperature Pulse Rate 93 H 86 86 Pulse Rate [ From Monitor] Pulse Rate [ Radial] Respiratory 19 Rate Blood Pressure 164/93 164/93 O2 Sat by Pulse 99 Oximetry O2 Sat by Pulse Oximetry [ Posterior Bilateral] 05/23/21 05/23/21 05/23/21 06:00 07:00 08:00 Temperature Pulse Rate 86 84 84 Pulse Rate [ From Monitor] Pulse Rate [ Radial] Respiratory 15 13 18 Rate Blood Pressure 165/89 157/89 159/90 O2 Sat by Pulse 100 97 100 Oximetry O2 Sat by Pulse Oximetry [ Posterior Bilateral] 05/23/21 05/23/21 05/23/21 09:00 10:35 10:45 Temperature 97.9 F Pulse Rate 84 83 77 Pulse Rate [ From Monitor] Pulse Rate [ Radial] Respiratory 15 18 Rate Blood Pressure 167/97 175/101 175/103 O2 Sat by Pulse 97 Oximetry O2 Sat by Pulse 96 Oximetry [ Posterior Bilateral] 05/23/21 05/23/21 05/23/21 11:00 11:15 11:30 Temperature Pulse Rate 86 84 79 Pulse Rate [ From Monitor] Pulse Rate [ Radial] Respiratory Rate Blood Pressure 173/103 186/107 168/105 O2 Sat by Pulse Oximetry O2 Sat by Pulse Oximetry [ Posterior Bilateral] 05/23/21 05/23/21 05/23/21 11:36 11:45 11:49 Temperature Pulse Rate 79 79 Pulse Rate [ 79 From Monitor] Pulse Rate [ 79 Radial] Respiratory 17 Rate Blood Pressure 172/105 172/105 O2 Sat by Pulse 100 Oximetry O2 Sat by Pulse Oximetry [ Posterior Bilateral] - General Appearance General appearance: appears stated age EENT: ATNC Neck: no JVD Respiratory: Present: Decreased Breath Sounds Cardiology: regular Gastrointestinal: normal Integumentary: warm and dry Neurologic: no focal deficit Musculoskeletal: deferred Psychiatric: cooperative - Lab 05/22/21 05:36 05/22/21 05:36 Most recent lab results Calcium 8.9 mg/dL (8.4-10.2) 05/22/21 05:36 - Allied health notes Allied health notes reviewed: nursing Medications & Allergies - Medications Allergies/Adverse Reactions: Allergies No Known Allergies Allergy (Verified 04/30/21 10:42) Home Medications: Home Medications Medication Instructions Recorded Confirmed Last Taken Type Calcium Carbonate [Oscal 1250MG 1,250 mg PO QDAY #30 tablet 03/16/21 05/23/21 Unknown Rx TAB] Ergocalciferol [Vitamin D2] 50,000 unit PO We@1000 #30 capsule 03/16/21 05/23/21 Unknown Rx Famotidine [Pepcid] 10 mg PO BID #60 tablet 03/16/21 05/23/21 Unknown Rx calcitrioL [Rocaltrol] 0.25 mcg PO QDAY #30 capsule 03/16/21 05/23/21 Unknown Rx diphenhydrAMINE [Benadryl CAP] 25 mg PO Q6H PRN #30 capsule 03/16/21 05/23/21 Unknown Rx Metoprolol [Lopressor TAB] 50 mg PO BID #60 tablet 05/03/21 05/23/21 Unknown Rx amLODIPine 10 mg PO QDAY #30 tablet 05/03/21 05/23/21 Unknown Rx Albuterol Mdi (or & Nicu Only) 2 puff IH QID PRN 05/23/21 05/23/21 Unknown History [ProAir HFA Inhaler] Hydralazine HCl 50 mg PO TID 05/23/21 05/23/21 Unknown History NIFEdipine [Nifedipine ER] 60 mg PO QDAY 05/23/21 05/23/21 Unknown History Active Medications: Generic Name Dose Route Start Last Admin Trade Name Freq PRN Reason Stop Dose Admin Acetaminophen 650 mg 05/21/21 20:39 Acetaminophen 325 Mg Tab PO Q4H PRN Pain MILD(1-3)/Fever >100.5/WARD Acetaminophen/Butalbital/Caffeine 1 tab 05/21/21 20:03 05/21/21 20:24 Butalb/Acetaminophen/Caffeine Tab PO 1 tab Q4H PRN Administration Headache Amlodipine Besylate 10 mg 05/21/21 21:00 05/22/21 12:17 Amlodipine 10 Mg Tab PO 10 mg QDAY VALENTIN Administration Calcitriol 0.25 mcg 05/21/21 21:00 05/22/21 13:09 Calcitriol 0.25 Mcg Cap PO 0.25 mcg QDAY VALENTIN Administration Calcium Carbonate/Glycine 1,250 mg 05/21/21 20:00 05/22/21 13:09 Calcium Carbonate 1250 Mg Tab PO 1,250 mg QDAY VALENTIN Administration Diphenhydramine HCl 25 mg 05/21/21 20:00 05/23/21 05:17 Diphenhydramine 25 Mg Cap PO 25 mg Q6H PRN Administration Itching Famotidine 10 mg 05/21/21 22:00 05/22/21 21:28 Famotidine 10 Mg Tab PO 10 mg BID VALENTIN Administration Hydralazine HCl 10 mg 05/21/21 21:00 05/23/21 11:49 Hydralazine 20 Mg/1 Ml Inj IV 10 mg Q3H VALENTIN Administration Sodium Chloride 100 mls @ 999 mls/hr 05/21/21 13:48 Nacl 0.9% IV KYREE PRN Hypotension Metoclopramide HCl 2.5 mg 05/21/21 20:56 Metoclopramide 10 Mg/2 Ml Inj IV Q6H PRN Nausea And Vomiting Metoprolol Tartrate 50 mg 05/21/21 22:00 05/22/21 21:28 Metoprolol Tartrate 50 Mg Tab PO 50 mg BID VALENTIN Administration Morphine Sulfate 2 mg 05/21/21 20:39 05/23/21 00:59 Morphine 2 Mg/1 Ml Inj IV 2 mg Q4H PRN Administration Pain, Moderate (4-6) Ondansetron HCl 4 mg 05/21/21 20:39 Ondansetron 4 Mg/2 Ml Inj IV Q8H PRN Nausea And Vomiting Sodium Chloride 10 ml 05/21/21 22:00 05/22/21 21:29 Sodium Chloride 0.9% 10 Ml Flush Syringe IV 10 ml BID VALENTIN Administration Sodium Chloride 10 ml 05/21/21 20:39 Sodium Chloride 0.9% 10 Ml Flush Syringe IV PRN PRN LINE FLUSH Valsartan 160 mg 05/21/21 21:20 05/22/21 21:28 Valsartan 160mg Tab PO 160 mg Q12HR VALENTIN Administration
[2021-05-23] MEDS: CALCITRIOL 0.25 MCG CAP PO SCH (14:19)
[2021-05-23] MEDS: FAMOTIDINE 10 MG TAB PO SCH ×2 (14:19→21:04)
[2021-05-23] MEDS: VALSARTAN 160MG TAB PO SCH ×2 (14:19→21:04)
[2021-05-23] MEDS: amLODIPine 10 MG TAB PO SCH (14:19)
[2021-05-23] MEDS: METOPROLOL TARTRATE 50 MG TAB PO SCH ×2 (14:20→21:04)
[2021-05-23] MEDS: CALCIUM CARBONATE 1250 MG TAB PO SCH (14:20)
[2021-05-24] MEDS: hydrALAZINE 20 MG/1 ML INJ IV SCH ×8 (02:49→21:39)
--- NOTE | 2021-05-24 07:07 | Progress Note ---
Assessment and Plan - Patient Problems (1) Acute exacerbation of CHF (congestive heart failure) Current Visit: Yes Status: Acute Qualifiers: Heart failure type: combined systolic and diastolic Qualified Code(s): I50.43 - Acute on chronic combined systolic (congestive) and diastolic (congestive) heart failure Plan to address problem: Secondary to volume overload Check echocardiogram--still pending Shortness of breath improved (2) Volume overload Current Visit: Yes Status: Acute Plan to address problem: Had emergent hemodialysis x2 for increased ultrafiltration Improved (3) Hypertensive emergency Current Visit: Yes Status: Chronic Plan to address problem: Patient is noncompliant Patient started on valsartan 1 [id number] in addition to her metoprolol and amlodipine IV hydralazine 10 mg every 3 hours as needed Emergent hemodialysis for removal of toxins which may improve her blood pressure Improved (4) ESRD needing dialysis Current Visit: Yes Status: Acute Plan to address problem: Emergent hemodialysis x2 today Nephrology consult appreciated (5) Anemia Current Visit: Yes Status: Chronic Qualifiers: Anemia type: due to chronic kidney disease Chronic kidney disease stage: on chronic dialysis Qualified Code(s): N18.6 - End stage renal disease; D63.1 - Anemia in chronic kidney disease; Z99.2 - Dependence on renal dialysis Plan to address problem: Secondary to chronic kidney disease (6) Hyponatremia Current Visit: Yes Status: Acute Plan to address problem: Should correct with correction of volume overload and increased ultrafiltration (7) Hyperkalemia Current Visit: Yes Status: Acute Plan to address problem: Kayexalate calcium gluconate and bicarb given in the emergency room (8) DVT prophylaxis Current Visit: Yes Status: Acute Plan to address problem: On heparin and GI prophylaxis (9) Discharge planning issues Current Visit: Yes Status: Acute Plan to address problem: Patient is ready for discharge Waiting for hemodialysis chair placement at [facility] in [place] To discuss with insurance case manager regarding hemodialysis chair manager contact agreed for 1 month supply of medications so that patient does not go into hypertensive emergency and need for immediate attention in the emergency room harvest worker to work with the patient Social work consult placed Subjective Date of service: 05/23/21 Principal diagnosis: Hypertensive emergency, end-stage renal disease needing dialysis Interval history: History of present illness: 35-year-old female with history of hypertension and end-stage renal disease started on hemodialysis in February 2021. Patient was discharged on 05/03/2021 and her hemodialysis chair was not arranged. Patient did not get hemodialysis for this last 17 days. Patient is due to get hemodialysis with replacement center and case management is working on arrangements. Patient is noncompliant. Noncompliant with her blood pressure medications. Orthopnea present. Shortness of breath on minimal exertion present. No fever or chills. No exposure to Covid. 05/22/2021 Blood pressure under control Symptomatically better After 1 dialysis session last night 05/23/2021 Blood pressure under control Waiting for hemodialysis chair in [facility] Discussed with insurance case manager about 1 month supply of medications given her economic situation manager contact agreed to 1 month supply of medications Objective - Constitutional Vitals: Vital Signs - 12hr 05/23/21 05/23/21 05/23/21 19:46 22:00 23:43 Temperature 98.5 F 98.7 F Pulse Rate 87 82 Respiratory 18 18 Rate Blood Pressure 133/79 158/93 O2 Sat by Pulse 98 100 99 Oximetry 05/24/21 03:37 Temperature 98.9 F Pulse Rate 87 Respiratory 18 Rate Blood Pressure 154/90 O2 Sat by Pulse 98 Oximetry General appearance: Present: no acute distress, well-nourished - EENT Eyes: PERRL, EOM intact ENT: hearing intact, clear oral mucosa Ears: bilateral: normal - Neck Neck: supple, normal ROM - Respiratory Respiratory effort: normal Respiratory: bilateral: CTA - Breasts Breasts: normal - Cardiovascular Heart rate: 78 Rhythm: regular Heart Sounds: Present: S1 & S2. Absent: gallop, rub Extremities: pulses intact, No edema, normal color, Full ROM - Gastrointestinal General gastrointestinal: Present: soft, non-tender, non-distended, normal bowel sounds - Genitourinary Female genitourinary: normal - Integumentary Integumentary: clear, warm, dry - Musculoskeletal Musculoskeletal: 1, strength equal bilaterally - Neurologic Neurologic: moves all extremities - Psychiatric Psychiatric: memory intact, appropriate mood/affect, intact judgment & insight - Labs CBC & Chem 7: 05/22/21 05:36 05/22/21 05:36 HEART Score - HEART Score Age: < 45 Risk factors: 1-2 risk factors - Critical Actions Critical Actions: 4-6 pts:12-16.6% risk of adverse cardiac event. Should be a dmitted
[2021-05-24] MEDS: amLODIPine 10 MG TAB PO SCH (10:30)
[2021-05-24] MEDS: diphenhydrAMINE 25 MG CAP PO PRN (10:30)
[2021-05-24] MEDS: CALCIUM CARBONATE 1250 MG TAB PO SCH (10:30)
[2021-05-24] MEDS: FAMOTIDINE 10 MG TAB PO SCH ×2 (10:31→21:39)
[2021-05-24] MEDS: VALSARTAN 160MG TAB PO SCH ×2 (10:31→21:39)
[2021-05-24] MEDS: CALCITRIOL 0.25 MCG CAP PO SCH (10:31)
[2021-05-24] MEDS: METOPROLOL TARTRATE 50 MG TAB PO SCH ×2 (10:31→21:39)
--- NOTE | 2021-05-24 10:36 | Progress Note ---
Assessment and Plan Assessment and plan: Acute diastolic heart failure exacerbation Hyperkalemia Accelerated hypertension ESRD 03/23/2021. Echocardiogram from 03/16 revealed left ventricular systolic function normal with EF 50 to 55%. Mild to moderate concentric left ventricular hypertrophy. Severe mitral regurgitation. Mild pulmonary hypertension. RVSP 40-45 mmHg. Consider cardiology consultation. Patient reports having hemodialysis chair arrangement issues History Interval history: No new issues overnight. Hospitalist Physical - Constitutional Vitals: Temp Pulse Resp BP Pulse Ox 98.4 F 84 18 178/103 98 05/24/21 08:25 05/24/21 08:25 05/24/21 08:25 05/24/21 08:25 05/24/21 08:25 General appearance: Present: no acute distress, well-nourished - EENT Eyes: Present: PERRL, EOM intact ENT: hearing intact, clear oral mucosa, dentition normal - Neck Neck: Present: supple, normal ROM - Respiratory Respiratory effort: normal Respiratory: bilateral: CTA - Cardiovascular Rhythm: regular Heart Sounds: Present: S1 & S2. Absent: gallop, rub - Extremities Extremities: no ischemia, No edema, Full ROM - Abdominal General gastrointestinal: soft, non-tender, non-distended, normal bowel sounds - Integumentary Integumentary: Present: clear, warm, dry - Neurologic Neurologic: CNII-XII intact, moves all extremities HEART Score - HEART Score Age: < 45 Risk factors: 1-2 risk factors - Critical Actions Critical Actions: 4-6 pts:12-16.6% risk of adverse cardiac event. Should be admitted Results - Labs CBC & Chem 7: 05/22/21 05:36 05/22/21 05:36 Labs: Laboratory Last Values WBC 5.7 K/mm3 (4.5-11.0) 05/22/21 05:36 RBC 2.82 M/mm3 (3.65-5.03) L 05/22/21 05:36 Hgb 8.4 gm/dl (10.1-14.3) L 05/22/21 05:36 Hct 24.8 % (30.3-42.9) L 05/22/21 05:36 MCV 88 fl (79-97) 05/22/21 05:36 MCH 30 pg (28-32) 05/22/21 05:36 MCHC 34 % (30-34) 05/22/21 05:36 RDW 22.9 % (13.2-15.2) H 05/22/21 05:36 Plt Count 209 K/mm3 (140-440) 05/22/21 05:36 Lymph % (Auto) 17.2 % (13.4-35.0) 05/22/21 05:36 [place] % (Auto) 7.6 % (0.0-7.3) H 05/22/21 05:36 Eos % (Auto) 2.3 % (0.0-4.3) 05/22/21 05:36 Baso % (Auto) 0.7 % (0.0-1.8) 05/22/21 05:36 Lymph # (Auto) 1.0 K/mm3 (1.2-5.4) L 05/22/21 05:36 [place] # (Auto) 0.4 K/mm3 (0.0-0.8) 05/22/21 05:36 Eos # (Auto) 0.1 K/mm3 (0.0-0.4) 05/22/21 05:36 Baso # (Auto) 0.0 K/mm3 (0.0-0.1) 05/22/21 05:36 Seg Neutrophils % 72.2 % (40.0-70.0) H 05/22/21 05:36 Seg Neutrophils # 4.1 K/mm3 (1.8-7.7) 05/22/21 05:36 Sodium 137 mmol/L (137-145) 05/22/21 05:36 Potassium 3.9 mmol/L (3.6-5.0) D 05/22/21 05:36 Chloride 96.5 mmol/L (98-107) L 05/22/21 05:36 Carbon Dioxide 23 mmol/L (22-30) D 05/22/21 05:36 Anion Gap 21 mmol/L 05/22/21 05:36 BUN 52 mg/dL (7-17) H 05/22/21 05:36 Creatinine 9.8 mg/dL (0.6-1.2) H 05/22/21 05:36 Estimated GFR 5 ml/min 05/22/21 05:36 BUN/Creatinine Ratio 5 % 05/22/21 05:36 Glucose 95 mg/dL (65-100) 05/22/21 05:36 Calcium 8.9 mg/dL (8.4-10.2) 05/22/21 05:36 Total Bilirubin 0.90 mg/dL (0.1-1.2) 05/22/21 05:36 AST 25 units/L (5-40) 05/22/21 05:36 ALT 13 units/L (7-56) 05/22/21 05:36 Alkaline Phosphatase 141 units/L (35-129) H 05/22/21 05:36 Total Protein 7.2 g/dL (6.3-8.2) 05/22/21 05:36 Albumin 3.8 g/dL (3.9-5) L 05/22/21 05:36 Albumin/Globulin Ratio 1.1 % 05/22/21 05:36 HCG, Qual Negative (Negative) 05/21/21 12:18 Zimmerman/IV: Voiding Method Toilet Active Medications - Current Medications Current Medications: Generic Name Dose Route Start Last Admin Trade Name Freq PRN Reason Stop Dose Admin Acetaminophen 650 mg 05/21/21 20:39 Acetaminophen 325 Mg Tab PO Q4H PRN Pain MILD(1-3)/Fever >100.5/WARD Acetaminophen/Butalbital/Caffeine 1 tab 05/21/21 20:03 05/21/21 20:24 Butalb/Acetaminophen/Caffeine Tab PO 1 tab Q4H PRN Administration Headache Amlodipine Besylate 10 mg 05/21/21 21:00 05/23/21 14:19 Amlodipine 10 Mg Tab PO 10 mg QDAY VALENTIN Administration Calcitriol 0.25 mcg 05/21/21 21:00 05/23/21 14:19 Calcitriol 0.25 Mcg Cap PO 0.25 mcg QDAY VALENTIN Administration Calcium Carbonate/Glycine 1,250 mg 05/21/21 20:00 05/23/21 14:20 Calcium Carbonate 1250 Mg Tab PO 1,250 mg QDAY VALENTIN Administration Diphenhydramine HCl 25 mg 05/21/21 20:00 05/23/21 05:17 Diphenhydramine 25 Mg Cap PO 25 mg Q6H PRN Administration Itching Famotidine 10 mg 05/21/21 22:00 05/23/21 21:04 Famotidine 10 Mg Tab PO 10 mg BID VALENTIN Administration Hydralazine HCl 10 mg 05/21/21 21:00 05/24/21 02:49 Hydralazine 20 Mg/1 Ml Inj IV 10 mg Q3H VALENTIN Administration Sodium Chloride 100 mls @ 999 mls/hr 05/21/21 13:48 Nacl 0.9% IV KYREE PRN Hypotension Metoclopramide HCl 2.5 mg 05/21/21 20:56 Metoclopramide 10 Mg/2 Ml Inj IV Q6H PRN Nausea And Vomiting Metoprolol Tartrate 50 mg 05/21/21 22:00 05/23/21 21:04 Metoprolol Tartrate 50 Mg Tab PO 50 mg BID VALENTIN Administration Morphine Sulfate 2 mg 05/21/21 20:39 05/23/21 14:31 Morphine 2 Mg/1 Ml Inj IV 2 mg Q4H PRN Administration Pain, Moderate (4-6) Ondansetron HCl 4 mg 05/21/21 20:39 Ondansetron 4 Mg/2 Ml Inj IV Q8H PRN Nausea And Vomiting Sodium Chloride 10 ml 05/21/21 22:00 05/23/21 21:04 Sodium Chloride 0.9% 10 Ml Flush Syringe IV 10 ml BID VALENTIN Administration Sodium Chloride 10 ml 05/21/21 20:39 Sodium Chloride 0.9% 10 Ml Flush Syringe IV PRN PRN LINE FLUSH Valsartan 160 mg 05/21/21 21:20 05/23/21 21:04 Valsartan 160mg Tab PO 160 mg Q12HR VALENTIN Administration Nutrition/Malnutrition Assess - Dietary Evaluation Nutrition/Malnutrition Findings: Nutrition Notes Start: 05/23/21 17:34 Freq: Status: Active Protocol: Document 05/23/21 17:34 GB (Rec: 05/23/21 17:41 GB [email or web address]) Nutrition Notes Need for Assessment generated from: MD Order Initial or Follow up Assessment Current Diagnosis Acute Kidney Injury Other Pertinent Diagnosis starting hemodialysis MWF Current Diet renal, w/supplement beverages Labs/Tests 05/22: BUN 52, creatinine 9.8, AlkP 141 Pertinent Medications calcitriol, Ca Carbonate/ glycine Height 5 ft 8 in Weight 76.204 kg [place] Body Weight (kg) 63.63 BMI 25.5 Intake Prior to Admission Good Weight change and time frame expect weight fluctuations r/t dependency on dialysis Weight Status Overweight Subjective/Other Information Per MD notes 05/23: started hemodialysis and blood work showed improvement Percent of energy/protein needs met: Meals/snacks/supplements provided 75% or greater of estimated energy needs. Burn Absent Trauma Absent GI Symptoms None Food Allergy No Current % PO Good (75-100%) Minimum of two criteria No #1 Nutrition Diagnosis Increased nutrient needs ( specify in comment below) Comments: protein Etiology kidney disease As Evidenced by Signs and Symptoms start of hemodialysis, renal diet Is patient on ventilator? No Is Patient Ambulatory and/or Out of Bed Yes REE-([place]-St. Jeor-ambulatory/OOB) [ 194. NUTR.MSJOOB] Kcal/Kg value to use for calculation 25 Approximate Energy Requirements Using 1905 kcal/Kg Calculation Used for Recommendations Kcal/kg Additional Notes Protein 1-1.4 g/kg @ 76k- 106g Fluids: 1ml/kcal or per MD Nutrition Intervention Change Diet Order: continue with renal Nutrition Support: n/a Add Supplement/Snack (indicate name/kcal Continue with nutritional /protein ) supplement: recommend either Nepro or Glucerna Currently ensure enlive BID( high in P&K) Provides kCal: 700 Provides Protein (gm) 40 Goal #1 PO intake of meals to continue at 75% or greater TID daily during LOS Follow-Up By: 05/30/21 Additional Comments new to dialysis
[2021-05-24] MEDS: BUTALB/ACETAMINOPHEN/CAFFEINE TAB PO PRN (21:39)
[2021-05-25] MEDS: hydrALAZINE 20 MG/1 ML INJ IV SCH ×7 (00:17→21:30)
--- NOTE | 2021-05-25 10:04 | Progress Note ---
Assessment and Plan - Patient Problems (1) Hyperkalemia Current Visit: Yes Status: Acute Plan to address problem: Will manage with hemodialysis. It has improved this morning. (2) Hypertensive emergency Current Visit: Yes Status: Chronic Plan to address problem: home blood pressure medicines restarted. Anticipate that with further adequate ultrafiltration during hemodialysis that blood pressures will continue to improve overall. (3) Volume overload Current Visit: Yes Status: Acute Plan to address problem: counseled on the importance of fluid restriction as well as sodium restriction. Also counseled on the importance of compliance with hemodialysis treatments. Pending further assistance from case management in regards to placement at this time as an outpatient. (4) ESRD needing dialysis Current Visit: Yes Status: Acute Plan to address problem: patient placed on a Sunday inpatient hemodialysis schedule. Second dialysis treatment today in order to help with further clearance and volume management. Hopeful that with continued ultrafiltration her blood pressures will also show adequate improvement. Pending further assistance from case management in regards to placement at an outpatient dialysis facility. Have reached out to case management today and recommended sending information to [facility] in [place]. Subjective Date of service: 05/25/21 Principal diagnosis: Hypertensive emergency and end-stage renal disease on hemodialysis Interval history: No acute complaints this morning. Pending hemodialysis this morning. Discussed with case management and have recommended that they send records and recheck to our [facility] in [place] for possible placement. Objective - Vital Signs Vital signs: Vital Signs - 12hr 05/24/21 05/25/21 05/25/21 22:44 03:00 03:33 Temperature 98.8 F 98.1 F Pulse Rate 80 76 83 Respiratory 16 16 Rate Blood Pressure 158/90 177/105 O2 Sat by Pulse 100 100 Oximetry 05/25/21 05/25/21 08:15 08:55 Temperature 98.7 F Pulse Rate 88 83 Respiratory 18 Rate Blood Pressure 193/110 O2 Sat by Pulse 99 Oximetry - General Appearance General appearance: well-developed, appears stated age EENT: ATNC Neck: no JVD Respiratory: Present: Clear to Ascultation Cardiology: regular Gastrointestinal: normal Integumentary: warm and dry Neurologic: alert and oriented x3 Musculoskeletal: deferred Psychiatric: cooperative - Lab 05/22/21 05:36 05/22/21 05:36 Most recent lab results Calcium 8.9 mg/dL (8.4-10.2) 05/22/21 05:36 - Allied health notes Allied health notes reviewed: nursing Medications & Allergies - Medications Allergies/Adverse Reactions: Allergies No Known Allergies Allergy (Verified 04/30/21 10:42) Home Medications: Home Medications Medication Instructions Recorded Confirmed Last Taken Type Calcium Carbonate [Oscal 1250MG 1,250 mg PO QDAY #30 tablet 03/16/21 05/23/21 Unknown Rx TAB] Ergocalciferol [Vitamin D2] 50,000 unit PO We@1000 #30 capsule 03/16/21 05/23/21 Unknown Rx Famotidine [Pepcid] 10 mg PO BID #60 tablet 03/16/21 05/23/21 Unknown Rx calcitrioL [Rocaltrol] 0.25 mcg PO QDAY #30 capsule 03/16/21 05/23/21 Unknown Rx diphenhydrAMINE [Benadryl CAP] 25 mg PO Q6H PRN #30 capsule 03/16/21 05/23/21 Unknown Rx Metoprolol [Lopressor TAB] 50 mg PO BID #60 tablet 05/03/21 05/23/21 Unknown Rx amLODIPine 10 mg PO QDAY #30 tablet 05/03/21 05/23/21 Unknown Rx Albuterol Mdi (or & Nicu Only) 2 puff IH QID PRN 05/23/21 05/23/21 Unknown His tory [ProAir HFA Inhaler] Hydralazine HCl 50 mg PO TID 05/23/21 05/23/21 Unknown History NIFEdipine [Nifedipine ER] 60 mg PO QDAY 05/23/21 05/23/21 Unknown History Active Medications: Generic Name Dose Route Start Last Admin Trade Name Freq PRN Reason Stop Dose Admin Acetaminophen 650 mg 05/21/21 20:39 Acetaminophen 325 Mg Tab PO Q4H PRN Pain MILD(1-3)/Fever >100.5/WARD Acetaminophen/Butalbital/Caffeine 1 tab 05/21/21 20:03 05/24/21 21:39 Butalb/Acetaminophen/Caffeine Tab PO 1 tab Q4H PRN Administration Headache Amlodipine Besylate 10 mg 05/21/21 21:00 05/24/21 10:30 Amlodipine 10 Mg Tab PO 10 mg QDAY VALENTIN Administration Calcitriol 0.25 mcg 05/21/21 21:00 05/24/21 10:31 Calcitriol 0.25 Mcg Cap PO 0.25 mcg QDAY VALENTIN Administration Calcium Carbonate/Glycine 1,250 mg 05/21/21 20:00 05/24/21 10:30 Calcium Carbonate 1250 Mg Tab PO 1,250 mg QDAY VALENTIN Administration Diphenhydramine HCl 25 mg 05/21/21 20:00 05/24/21 10:30 Diphenhydramine 25 Mg Cap PO 25 mg Q6H PRN Administration Itching Famotidine 10 mg 05/21/21 22:00 05/24/21 21:39 Famotidine 10 Mg Tab PO 10 mg BID VALENTIN Administration Hydralazine HCl 10 mg 05/21/21 21:00 05/25/21 05:25 Hydralazine 20 Mg/1 Ml Inj IV Not Given Q3H [facility] Sodium Chloride 100 mls @ 999 mls/hr 05/21/21 13:48 Nacl 0.9% IV KYREE PRN Hypotension Metoclopramide HCl 2.5 mg 05/21/21 20:56 Metoclopramide 10 Mg/2 Ml Inj IV Q6H PRN Nausea And Vomiting Metoprolol Tartrate 50 mg 05/21/21 22:00 05/24/21 21:39 Metoprolol Tartrate 50 Mg Tab PO 50 mg BID VALENTIN Administration Morphine Sulfate 2 mg 05/21/21 20:39 05/23/21 14:31 Morphine 2 Mg/1 Ml Inj IV 2 mg Q4H PRN Administration Pain, Moderate (4-6) Ondansetron HCl 4 mg 05/21/21 20:39 Ondansetron 4 Mg/2 Ml Inj IV Q8H PRN Nausea And Vomiting Sodium Chloride 10 ml 05/21/21 22:00 05/24/21 21:39 Sodium Chloride 0.9% 10 Ml Flush Syringe IV 10 ml BID VALENTIN Administration Sodium Chloride 10 ml 05/21/21 20:39 Sodium Chloride 0.9% 10 Ml Flush Syringe IV PRN PRN LINE FLUSH Valsartan 160 mg 05/21/21 21:20 05/24/21 21:39 Valsartan 160mg Tab PO 160 mg Q12HR VALENTIN Administration
[2021-05-25] MEDS: CALCITRIOL 0.25 MCG CAP PO SCH (10:35)
[2021-05-25] MEDS: FAMOTIDINE 10 MG TAB PO SCH ×2 (10:35→21:30)
[2021-05-25] MEDS: diphenhydrAMINE 25 MG CAP PO PRN ×2 (10:35→21:33)
[2021-05-25] MEDS: CALCIUM CARBONATE 1250 MG TAB PO SCH (10:36)
--- NOTE | 2021-05-25 10:48 | Progress Note ---
Assessment and Plan Assessment and plan: Acute diastolic heart failure exacerbation Hyperkalemia Accelerated hypertension ESRD 05/24/2021. Echocardiogram from 03/16 revealed left ventricular systolic function normal with EF 50 to 55%. Mild to moderate concentric left ventricular hypertrophy. Severe mitral regurgitation. Mild pulmonary hypertension. RVSP 40-45 mmHg. Consider cardiology consultation. Patient reports having hemodialysis chair arrangement issues 05/25/2021. Awaiting transfer to new dialysis clinic. Patient had issues with compliance because of lack of transportation. Patient otherwise stable. Continue current plan History Interval history: No new issues overnight. Hospitalist Physical - Constitutional Vitals: Temp Pulse Resp BP Pulse Ox 98.5 F 85 16 194/108 100 05/25/21 10:05/25/21 10:05/25/21 10:05/25/21 10:05/25/21 10:09 General appearance: Present: no acute distress, well-nourished - EENT Eyes: Present: PERRL, EOM intact ENT: hearing intact, clear oral mucosa, dentition normal - Neck Neck: Present: supple, normal ROM - Respiratory Respiratory effort: normal Respiratory: bilateral: CTA - Cardiovascular Rhythm: regular Heart Sounds: Present: S1 & S2. Absent: gallop, rub - Extremities Extremities: no ischemia, No edema, Full ROM - Abdominal General gastrointestinal: soft, non-tender, non-distended, normal bowel sounds - Integumentary Integumentary: Present: clear, warm, dry - Neurologic Neurologic: CNII-XII intact, moves all extremities HEART Score - HEART Score Age: < 45 Risk factors: 1-2 risk factors - Critical Actions Critical Actions: 4-6 pts:12-16.6% risk of adverse cardiac event. Should be admi tted Results - Labs CBC & Chem 7: 05/22/21 05:36 05/22/21 05:36 Labs: Laboratory Last Values WBC 5.7 K/mm3 (4.5-11.0) 05/22/21 05:36 RBC 2.82 M/mm3 (3.65-5.03) L 05/22/21 05:36 Hgb 8.4 gm/dl (10.1-14.3) L 05/22/21 05:36 Hct 24.8 % (30.3-42.9) L 05/22/21 05:36 MCV 88 fl (79-97) 05/22/21 05:36 MCH 30 pg (28-32) 05/22/21 05:36 MCHC 34 % (30-34) 05/22/21 05:36 RDW 22.9 % (13.2-15.2) H 05/22/21 05:36 Plt Count 209 K/mm3 (140-440) 05/22/21 05:36 Lymph % (Auto) 17.2 % (13.4-35.0) 05/22/21 05:36 [place] % (Auto) 7.6 % (0.0-7.3) H 05/22/21 05:36 Eos % (Auto) 2.3 % (0.0-4.3) 05/22/21 05:36 Baso % (Auto) 0.7 % (0.0-1.8) 05/22/21 05:36 Lymph # (Auto) 1.0 K/mm3 (1.2-5.4) L 05/22/21 05:36 [place] # (Auto) 0.4 K/mm3 (0.0-0.8) 05/22/21 05:36 Eos # (Auto) 0.1 K/mm3 (0.0-0.4) 05/22/21 05:36 Baso # (Auto) 0.0 K/mm3 (0.0-0.1) 05/22/21 05:36 Seg Neutrophils % 72.2 % (40.0-70.0) H 05/22/21 05:36 Seg Neutrophils # 4.1 K/mm3 (1.8-7.7) 05/22/21 05:36 Sodium 137 mmol/L (137-145) 05/22/21 05:36 Potassium 3.9 mmol/L (3.6-5.0) D 05/22/21 05:36 Chloride 96.5 mmol/L (98-107) L 05/22/21 05:36 Carbon Dioxide 23 mmol/L (22-30) D 05/22/21 05:36 Anion Gap 21 mmol/L 05/22/21 05:36 BUN 52 mg/dL (7-17) H 05/22/21 05:36 Creatinine 9.8 mg/dL (0.6-1.2) H 05/22/21 05:36 Estimated GFR 5 ml/min 05/22/21 05:36 BUN/Creatinine Ratio 5 % 05/22/21 05:36 Glucose 95 mg/dL (65-100) 05/22/21 05:36 Calcium 8.9 mg/dL (8.4-10.2) 05/22/21 05:36 Total Bilirubin 0.90 mg/dL (0.1-1.2) 05/22/21 05:36 AST 25 units/L (5-40) 05/22/21 05:36 ALT 13 units/L (7-56) 05/22/21 05:36 Alkaline Phosphatase 141 units/L (35-129) H 05/22/21 05:36 Total Protein 7.2 g/dL (6.3-8.2) 05/22/21 05:36 Albumin 3.8 g/dL (3.9-5) L 05/22/21 05:36 Albumin/Globulin Ratio 1.1 % 05/22/21 05:36 HCG, Qual Negative (Negative) 05/21/21 12:18 Nasal Screen MRSA (PCR) Positive (Negative) 05/23/21 05:30 Zimmerman/IV: Voiding Method Toilet Active Medications - Current Medications Current Medications: Generic Name Dose Route Start Last Admin Trade Name Freq PRN Reason Stop Dose Admin Acetaminophen 650 mg 05/21/21 20:39 Acetaminophen 325 Mg Tab PO Q4H PRN Pain MILD(1-3)/Fever >100.5/WARD Acetaminophen/Butalbital/Caffeine 1 tab 05/21/21 20:03 05/24/21 21:39 Butalb/Acetaminophen/Caffeine Tab PO 1 tab Q4H PRN Administration Headache Amlodipine Besylate 10 mg 05/21/21 21:00 05/24/21 10:30 Amlodipine 10 Mg Tab PO 10 mg QDAY VALENTIN Administration Calcitriol 0.25 mcg 05/21/21 21:00 05/24/21 10:31 Calcitriol 0.25 Mcg Cap PO 0.25 mcg QDAY VALENTIN Administration Calcium Carbonate/Glycine 1,250 mg 05/21/21 20:00 05/24/21 10:30 Calcium Carbonate 1250 Mg Tab PO 1,250 mg QDAY VALENTIN Administration Diphenhydramine HCl 25 mg 05/21/21 20:00 05/24/21 10:30 Diphenhydramine 25 Mg Cap PO 25 mg Q6H PRN Administration Itching Famotidine 10 mg 05/21/21 22:00 05/24/21 21:39 Famotidine 10 Mg Tab PO 10 mg BID VALENTIN Administration Hydralazine HCl 10 mg 05/21/21 21:00 05/25/21 05:25 Hydralazine 20 Mg/1 Ml Inj IV Not Given Q3H [facility] Sodium Chloride 100 mls @ 999 mls/hr 05/21/21 13:48 Nacl 0.9% IV KYREE PRN Hypotension Metoclopramide HCl 2.5 mg 05/21/21 20:56 Metoclopramide 10 Mg/2 Ml Inj IV Q6H PRN Nausea And Vomiting Metoprolol Tartrate 50 mg 05/21/21 22:00 05/24/21 21:39 Metoprolol Tartrate 50 Mg Tab PO 50 mg BID VALENTIN Administration Morphine Sulfate 2 mg 05/21/21 20:39 05/23/21 14:31 Morphine 2 Mg/1 Ml Inj IV 2 mg Q4H PRN Administration Pain, Moderate (4-6) Ondansetron HCl 4 mg 05/21/21 20:39 Ondansetron 4 Mg/2 Ml Inj IV Q8H PRN Nausea And Vomiting Sodium Chloride 10 ml 05/21/21 22:00 05/24/21 21:39 Sodium Chloride 0.9% 10 Ml Flush Syringe IV 10 ml BID VALENTIN Administration Sodium Chloride 10 ml 05/21/21 20:39 Sodium Chloride 0.9% 10 Ml Flush Syringe IV PRN PRN LINE FLUSH Valsartan 160 mg 05/21/21 21:20 05/24/21 21:39 Valsartan 160mg Tab PO 160 mg Q12HR VALENTIN Administration Nutrition/Malnutrition Assess - Dietary Evaluation Nutrition/Malnutrition Findings: Nutrition Notes Start: 05/23/21 17:34 Freq: Status: Active Protocol: Document 05/23/21 17:34 GB (Rec: 05/23/21 17:41 GB [id number]) Nutrition Notes Need for Assessment generated from: MD Order Initial or Follow up Assessment Current Diagnosis Acute Kidney Injury Other Pertinent Diagnosis starting hemodialysis MWF Current Diet renal, w/supplement beverages Labs/Tests 05/22: BUN 52, creatinine 9.8, AlkP 141 Pertinent Medications calcitriol, Ca Carbonate/ glycine Height 5 ft 8 in Weight 76.204 kg [place] Body Weight (kg) 63.63 BMI 25.5 Intake Prior to Admission Good Weight change and time frame expect weight fluctuations r/t dependency on dialysis Weight Status Overweight Subjective/Other Information Per MD notes 05/23: started hemodialysis and blood work showed improvement Percent of energy/protein needs met: Meals/snacks/supplements provided 75% or greater of estimated energy needs. Burn Absent Trauma Absent GI Symptoms None Food Allergy No Current % PO Good (75-100%) Minimum of two criteria No #1 Nutrition Diagnosis Increased nutrient needs ( specify in comment below) Comments: protein Etiology kidney disease As Evidenced by Signs and Symptoms start of hemodialysis, renal diet Is patient on ventilator? No Is Patient Ambulatory and/or Out of Bed Yes REE-(Hart-St. Jeor-ambulatory/OOB) [ 1943. NUTR.MSJOOB] Kcal/Kg value to use for calculation 25 Approximate Energy Requirements Using 1905 kcal/Kg Calculation Used for Recommendations Kcal/kg Additional Notes Protein 1-1.4 g/kg @ 76k- 106g Fluids: 1ml/kcal or per MD Nutrition Intervention Change Diet Order: continue with renal Nutrition Support: n/a Add Supplement/Snack (indicate name/kcal Continue with nutritional /protein ) supplement: recommend either Nepro or Glucerna Currently ensure enlive BID( high in P&K) Provides kCal: 700 Provides Protein (gm) 40 Goal #1 PO intake of meals to continue at 75% or greater TID daily during LOS Follow-Up By: 05/30/21 Additional Comments new to dialysis
[2021-05-25] MEDS: amLODIPine 10 MG TAB PO SCH (14:38)
[2021-05-25] MEDS: METOPROLOL TARTRATE 50 MG TAB PO SCH ×2 (14:38→21:30)
[2021-05-25] MEDS: VALSARTAN 160MG TAB PO SCH ×2 (14:38→21:29)
[2021-05-26] MEDS: hydrALAZINE 20 MG/1 ML INJ IV SCH ×4 (07:19→13:49)
--- NOTE | 2021-05-26 09:01 | Discharge Summary ---
Providers - Providers Date of Admission: 05/21/21 14:55 Date of discharge: 05/26/21 Attending physician: JODIE GOLDSTEIN 05/21/21 13:44 Consult to Physician [CONS] Stat Comment: Consulting Provider: SHILPI SALAS Physician Instructions: Reason For Exam: hyperkalemia, dialysis 05/22/21 16:29 Consult to Case Management [CONS] Routine Services Needed at Discharge: Other Notified:: CASE MANAGEMENT Comment:: Arrange for outpatient dialysis at [facility] Primary care physician: OPERATIONS WELDER Hospitalization Reason for admission: Acute diastolic heart failure, volume overload Condition: Stable Hospital course: 35-year-old lady with a history of hypertension complicated by end-stage renal disease who started dialysis in February 2021. Patient has been poorly compliant with dialysis treatments usually normal social issues. Her car was repossessed and she lost her apartment here in [place] and so she moved in with her aunt in [facility]. She was no longer able to get to the dialysis clinic in [facility] as her aunt is a logging truck driver and is gone all week and only comes home on the weekends. Patient was just hospitalized here for a May 02, 2021 and received dialysis then. She has not received any more treatment since then as she was unable to go to the dialysis center. Attempts were made to set her up at [facility] where she was told the clinic was full. Patient has been having shortness of breath and orthopnea for at least a week [employer] DES[employer]. She also noticeed some lower extremity swelling. On presentation her blood pressure was quite high at 211/141 mmHg. BUN/creatinine were quite elevated at 104/15.9 and a potassium was high at 5.9 mmol/L. I was consulted to assist with providing dialysis and managing her fluid and electrolyte abnormalities. The patient was admitted with diagnosis of accelerated hypertension, ESRD with missed hemodialysis, acute diastolic heart failure exacerbation and hyperkalemia. The patient was seen by nephrology in consultation. Case management was also consulted with regards to arranging for new hemodialysis outpatient clinic. Hospital course: 05/24/2021. Echocardiogram from 03/16 revealed left ventricular systolic function normal with EF 50 to 55%. Mild to moderate concentric left ventricular hypertrophy. Severe mitral regurgitation. Mild pulmonary hypertension. RVSP 40-45 mmHg. Consider cardiology consultation. Patient reports having hemodialysis chair arrangement issues 05/25/2021. Awaiting transfer to new dialysis clinic. Patient had issues with compliance because of lack of transportation. Patient otherwise stable. Continue current plan Disposition: 01 HOME / SELF CARE / HOMELESS Final Discharge Diagnosis (Prints w/discharge instructions): Acute diastolic heart failure exacerbation, hyperkalemia, accelerated hypertension, ESRD with missed hemodialysis Core Measure Documentation - Palliative Care Palliative Care/ Comfort Measures: Not Applicable - Core Measures Any of the following diagnoses?: none Exam - Constitutional Vitals: Temp Pulse Resp BP Pulse Ox 99.3 F 73 16 150/85 99 05/26/21 03:35 05/26/21 07:19 05/26/21 03:35 05/26/21 07:19 05/26/21 03:35 General appearance: Present: no acute distress, well-nourished - EENT Eyes: Present: PERRL ENT: hearing intact, clear oral mucosa - Neck Neck: Present: supple, normal ROM - Respiratory Respiratory effort: normal Respiratory: bilateral: CTA - Cardiovascular Heart Sounds: Present: S1 & S2. Absent: rub, click - Extremities Extremities: pulses symmetrical, No edema Peripheral Pulses: within normal limits - Abdominal General gastrointestinal: Present: soft, non-tender, non-distended, normal bowel sounds Female genitourinary: Present: normal - Integumentary Integumentary: Present: clear, warm, dry - Musculoskeletal Musculoskeletal: gait normal, strength equal bilaterally - Psychiatric Psychiatric: appropriate mood/affect, intact judgment & insight - Neurologic Neurologic: CNII-XII intact, moves all extremities Plan Activity: advance as tolerated Weight Bearing Status: Weight Bear as Tolerated Diet: renal Follow up with: ELISABETH MURDOCK MD [Primary Care Provider] - 3-5 Days SHILPI SALAS MD [Staff Physician] - 7 Days Prescriptions: amLODIPine 10 mg PO QDAY #30 tablet Valsartan [Diovan] 160 mg PO Q12HR #60 tablet Metoprolol [Lopressor TAB] 50 mg PO BID #60 tablet Calcium Carbonate [Oscal 1250MG TAB] 1,250 mg PO QDAY #30 tablet calcitrioL [Rocaltrol] 0.25 mcg PO QDAY #30 capsule
[2021-05-26 11:00] VITALS: BP 143/96
[2021-05-26] MEDS: VALSARTAN 160MG TAB PO SCH (11:47)
[2021-05-26] MEDS: amLODIPine 10 MG TAB PO SCH (11:47)
[2021-05-26] MEDS: CALCIUM CARBONATE 1250 MG TAB PO SCH (11:48)
[2021-05-26] MEDS: FAMOTIDINE 10 MG TAB PO SCH (11:48)
[2021-05-26] MEDS: METOPROLOL TARTRATE 50 MG TAB PO SCH (11:48)
[2021-05-26] MEDS: CALCITRIOL 0.25 MCG CAP PO SCH (11:49)
== END 2021-05-26 04:25 | disposition home or self-care (01) | DRG 291 ==
LOC: ED 11:37 → 4A 14:55
PROVIDERS: ADMIT Internal Medicine; ATTEND Hospitalist
PROC: 5A1D70Z Performance of Urinary Filtration, Intermittent, Less than 6 Hours Per Day (ICD-10-PCS; principal; 2021-05-21)
PROC: 5A1D70Z Performance of Urinary Filtration, Intermittent, Less than 6 Hours Per Day (ICD-10-PCS; 2021-05-23)
PROC: 5A1D70Z Performance of Urinary Filtration, Intermittent, Less than 6 Hours Per Day (ICD-10-PCS; 2021-05-25)
DX: I13.2 Hypertensive heart and chronic kidney disease with heart failure and with stage 5 chronic kidney disease, or end stage renal disease (principal); I50.43 Acute on chronic combined systolic (congestive) and diastolic (congestive) heart failure; N18.6 End stage renal disease; I16.1 Hypertensive emergency; E87.1 Hypo-osmolality and hyponatremia; E44.1 Mild protein-calorie malnutrition; Z99.2 Dependence on renal dialysis; D63.1 Anemia in chronic kidney disease; Z20.822 Contact with and (suspected) exposure to COVID-19; F17.200 Nicotine dependence, unspecified, uncomplicated; E87.5 Hyperkalemia; I27.20 Pulmonary hypertension, unspecified; Z68.24 Body mass index [BMI] 24.0-24.9, adult
CPT/HCPCS: 36415; 71046; 80048; 80053; 84703; 85025; 87641; 93005; G0378; J0360; J0610; J2270; U0003

== ENCOUNTER 2021-07-07 10:13 | Emergency (ER) | payer MEDICAID ==
--- NOTE | 2021-07-07 10:29 | Event Note ---
ED Screening Note Date of service: 07/07/21 Time: 10:28 ED Screening Note: Patient presents for dialysis today Last dialysis session was last week Patient follows with Dr. Mehta, nephrology and states she is in between transferring clinics States some fatigue and gassiness Denies swelling Patient does still make urine This initial assessment/diagnostic orders/clinical plan/treatment(s) is/are subject to change based on patients health status, clinical progression and re-assessment by fellow clinical providers in the ED. Further treatment and workup at subsequent clinical providers discretion. Patient/guardian urged not to elope from the ED as their condition may be serious if not clinically assessed and managed. Initial orders include: Labs
[2021-07-07 11:04] LABS: Basophils # (Auto) 0.1 K/mm3 (0.0-0.1); Basophils % (Auto) 1.4 % (0.0-1.8); Eosinophils # (Auto) 0.1 K/mm3 (0.0-0.4); Eosinophils % (Auto) 2.7 % (0.0-4.3); Hemoglobin 7.1 gm/dl (10.1-14.3); Lymphocytes # (Auto) 0.9 K/mm3 (1.2-5.4); Lymphocytes % (Auto) 20.9 % (13.4-35.0); Mean Corpuscular HGB Conc 33 % (30-34); Mean Corpuscular Volume 84 fl (79-97); Monocytes # (Auto) 0.3 K/mm3 (0.0-0.8); Platelet Count 222 K/mm3 (140-440); Red Blood Count 2.61 M/mm3 (3.65-5.03); Red Cell Distribution Width 19.5 % (13.2-15.2)
[2021-07-07 11:17] LABS: Calcium 7.2 mg/dL (8.4-10.2)
[2021-07-07] MEDS ORDERED: INSULIN REGULAR, HUMAN 100 UNITS/1 ML IV ONE (11:33)
[2021-07-07] MEDS ORDERED: DEXTROSE 50% IN WATER (25GM) 50 ML SYRINGE IV ONE (11:33)
[2021-07-07] MEDS ORDERED: ALBUTEROL 2.5 MG/3 ML NEBU IH ONE (11:33)
--- NOTE | 2021-07-07 11:42 | XRay Report ---
CHEST 2 VIEWS INDICATION / CLINICAL INFORMATION: dyspnea. COMPARISON: 05/21/2021 FINDINGS: SUPPORT DEVICES: Stable position of right IJ central venous catheter. HEART / MEDIASTINUM: No significant abnormality. LUNGS / PLEURA: No significant pulmonary or pleural abnormality. No pneumothorax. ADDITIONAL FINDINGS: No significant additional findings. IMPRESSION: 1. No acute findings. Signer Name: Parviz Mccray MD Signed: 07/07/2021 11:37 AM Workstation Name: [id number]
--- NOTE | 2021-07-07 12:01 | Emergency Department Report ---
ED General Adult HPI - General Chief complaint: Medical Clearance Stated complaint: NEEDS DIALYSIS Time Seen by Provider: 07/07/21 10:42 Source: patient Mode of arrival: Ambulatory Limitations: No Limitations - History of Present Illness Initial comments: Patient presents requesting dialysis. She was last dialyzed about 1 week ago. She been in the hospital up until last . She had been dialyzed Sunday and . She was told that she was going to be set up at a new facility. That facility never called her. She came in today to get dialyzed. She has no chest pain or shortness of breath. She has no cough or congestion. There is no vomiting. She is aware that it is been 1 week. - Related Data Previous Rx's Medication Instructions Recorded Last Taken Type Albuterol Mdi (or & Nicu Only) 2 puff IH QID PRN #8.5 gram 07/01/21 Unknown Rx [ProAir HFA Inhaler] Ergocalciferol [Vitamin D2] 50,000 unit PO We@1000 #30 capsule 07/01/21 Unknown Rx Famotidine [Pepcid] 10 mg PO BID #30 tablet 07/01/21 Unknown Rx Metoprolol [Lopressor TAB] 50 mg PO BID #60 tablet 07/01/21 Unknown Rx Valsartan [Diovan] 160 mg PO BID #60 tablet 07/01/21 Unknown Rx amLODIPine 10 mg PO QDAY #30 tablet 07/01/21 Unknown Rx calcitrioL [Rocaltrol] 0.25 mcg PO QDAY #30 capsule 07/01/21 Unknown Rx hydrALAZINE [Apresoline TAB] 25 mg PO Q8HR #90 tablet 07/01/21 Unknown Rx Allergies Allergy/AdvReac Type Severity Reaction Status Date / Time No Known Allergies Allergy Verified 07/07/21 10:15 ED Review of Systems ROS: Stated complaint: NEEDS DIALYSIS Other details as noted in HPI Comment: All other systems reviewed and negative Constitutional: denies: fever Eyes: denies: vision change ENT: denies: throat pain Respiratory: denies: cough Cardiovascular: denies: chest pain Endocrine: denies: unexplained weight loss Gastrointestinal: diarrhea Genitourinary: denies: dysuria Musculoskeletal: denies: back pain Skin: denies: rash Neurological: denies: headache Hematological/Lymphatic: denies: easy bruising ED Past Medical Hx - Past Medical History Hx Hypertension: Yes Hx Congestive Heart Failure: No Hx Diabetes: No Hx Renal Disease: Yes Hx Headaches / Migraines: Yes Hx Asthma: No Hx COPD: No Hx HIV: No Additional medical history: Stage 4 kidney disease/ Anemia, Perm cath for HD - Family History Family history: hypertension - Social History Smoking Status: Never Smoker Substance Use Type: None - Medications Home Medications: Home Medications Medication Instructions Recorded Confirmed Last Taken Type Albuterol Mdi (or & Nicu Only) 2 puff IH QID PRN #8.5 gram 07/01/21 Unknown Rx [ProAir HFA Inhaler] Ergocalciferol [Vitamin D2] 50,000 unit PO We@1000 #30 capsule 07/01/21 Unknown Rx Famotidine [Pepcid] 10 mg PO BID #30 tablet 07/01/21 Unknown Rx Metoprolol [Lopressor TAB] 50 mg PO BID #60 tablet 07/01/21 Unknown Rx Valsartan [Diovan] 160 mg PO BID #60 tablet 07/01/21 Unknown Rx amLODIPine 10 mg PO QDAY #30 tablet 07/01/21 Unknown Rx calcitrioL [Rocaltrol] 0.25 mcg PO QDAY #30 capsule 07/01/21 Unknown Rx hydrALAZINE [Apresoline TAB] 25 mg PO Q8HR #90 tablet 07/01/21 Unknown Rx ED Physical Exam - General Limitations: No Limitations, Other ( Pulse ox noted and normal) General appearance: alert, in no apparent distress - Head Head exam: Present: atraumatic, normocephalic, normal inspection - Eye Eye exam: Present: normal appearance, EOMI. Absent: scleral icterus - ENT ENT exam: Present: normal exam, mucous membranes moist - Neck Neck exam: Present: normal inspection. Absent: meningismus - Respiratory Respiratory exam: Present: normal lung sounds bilaterally. Absent: respiratory distress - Cardiovascular Cardiovascular Exam: Present: regular rate, normal rhythm - GI/Abdominal GI/Abdominal exam: Present: soft. Absent: tenderness - Extremities Exam Extremities exam: Present: normal capillary refill - Back Exam Back exam: Absent: CVA tenderness (R), CVA tenderness (L) - Neurological Exam Neurological exam: Present: alert, oriented X3, CN II-XII intact. Absent: motor sensory deficit - Psychiatric Psychiatric exam: Present: normal affect, normal mood - Skin Skin exam: Present: warm, dry ED Course Vital Signs 07/07/21 07/07/21 10:17 10:47 Temperature 97.7 F Pulse Rate 72 Respiratory 20 Rate Blood Pressure 120/78 O2 Sat by Pulse 98 100 Oximetry - Reevaluation(s) Reevaluation #1: 07/07/21 11:58 labs are noted. X-ray have been added on. X-ray been added on. Patient was discharged. ED Medical Decision Making - Lab Data Result diagrams: 07/07/21 10:33 07/07/21 10:33 Rhythm strip: Normal sinus rhythm without ectopy per monitor observe 10 seconds. - EKG Data -: EKG Interpreted by Me - EKG Data 07/07/21 11:58 EKG shows a normal sinus rhythm with normal intervals. She does not have peaked T waves. She does not have any prolongation of the QRS or QT corrected. There is no change from prior EKG. - Medical Decision Making Patient presents requesting dialysis. At this time, she is not hypoxic. She does not have hypertensive urgency. She does not have significant hyperkalemia. There is no EKG change. I do not believe she requires emergent dialysis based on her presentation. Case was discussed with her and with the nursing staff and case management. We called the dialysis centers that she was referred to. 1 was called her that said that she was a no-show. That was [place]. They also stated they could not get any records from her from a dialysis center. Hospital records were not adequate. The other dialysis center called also referred to the fact that they had no records from her from a another dialysis center. Patient states that she was never asked for those records. At this time, patient has been treated symptomatically. There is no indication for emergent dialysis or admission. We will continue to work on outpatient dialysis. Case management is in support. Critical Care Time: No Critical care attestation.: If time is entered above; I have spent that time in minutes in the direct care of this critically ill patient, excluding procedure time. ED Disposition Clinical Impression: ESRD (end stage renal disease) on dialysis, Hyperkalemia Disposition: 01 HOME / SELF CARE / HOMELESS Is pt being admited?: No Condition: Stable Instructions: Hyperkalemia, Dialysis Additional Instructions: Follow-up as directed and discussed. Drink water. Avoid orange juice and bananas. Referrals: PRIMARY CARE, [Primary Care Provider] - 3-5 Days MELLY VAZQUEZ MD [Staff Physician] - 3-5 Days
[2021-07-07] MEDS ORDERED: CALCIUM GLUCONATE 1,000 MG in SODIUM CHLORIDE 0.9% 100 ML IV ONE (12:33)
[2021-07-07 13:13] VITALS: BP 128/68
--- NOTE | 2021-07-08 13:00 | Electrocardiograph Report ---
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
== END 2021-07-07 13:14 | disposition home or self-care (01) ==
LOC: ED 10:13
DX: I12.0 Hypertensive chronic kidney disease with stage 5 chronic kidney disease or end stage renal disease (principal); N18.6 End stage renal disease; E87.5 Hyperkalemia; Z99.2 Dependence on renal dialysis; Z79.899 Other long term (current) drug therapy
CPT/HCPCS: 36415; 71046; 80048; 85025; 93005; 94640; 96374; 96375; 99284; J0610; J1815